=== PATIENT | female | born 1950 | race Caucasian/White ===

== ENCOUNTER → 2017-09-11 13:13 | Outpatient (POV) | payer MEDICARE, OTHER, SELFPAY ==
[2017-09-11 13:31] VITALS: BP 140/88; PULSE 90; RESP 18; TEMP 36.1; O2SAT 94; BMI 37.8
--- NOTE | 2017-09-11 13:40 | HMH.PAINSOAP ---
[facility] Pain Management SOAP Note Subjective:: Patient is a pleasant 67-year-old white female who presents today for follow-up after bilateral SI joint injections. Patient states she is having up to 80% relief still. Patient is currently marginal due to the injections. Patient rates her pain a 3 out of 10 today. Patient taking ibuprofen routinely. Patient states her pain is in her low back and her hips. She does have a right knee brace on and she has been receiving rooster comb injections in her right knee due to osteoarthritis. Patient states that this does help. Patient also on [place] 5 mg p.o. twice daily however she only takes this as needed she has not had a prescription since March of last year. The patient and I had a discussion about moving forward with more injective therapy. Patient is interested however she would like to wait until her pain begins to return. Patient states that her pain is dull and achy and intensifies with sitting for any length of time. Patient's LILLI #[id number] reviewed and appropriate. We will send this patient for drug screen today. ROS General: no recent weight change, no fever, difficulty sleeping Respiratory: cough, no shortness of air, no recurring pulmonary infections Cardiovascular/Peripheral Vascular: No chest pain, No palpitations, no edema, no shortness of breath. Gastrointestinal: no incontinence, constipation Genitourinary: no incontinence Musculoskeletal: Back pain, bilateral leg pain, bilateral SI pain, right knee pain Psychiatric: normal mood/ affect, Neurological: [denies weakness in extremities], [denies balance issues] Objective:: Physical Exam General: Alert and oriented x3, no acute distress, pleasant and cooperative, [on room air] Lungs: Resps E/U, Symmetrical chest expansion, Eyes: PERRL Musculoskeletal: Flexion and extension of lumbar spine somewhat guarded secondary to pain, deep tendon reflexes normal, strength in upper and lower extremities [5/5], [abnormal gait noted], positive Konrad's test bilaterally Neurological: speech clear, rehabilitation teacher equal, no gross sensory deficits Assessment:: Degenerative disc disease of the lumbar spine, lumbar postlaminectomy syndrome, bilateral sacroiliitis, right knee osteoarthritis Plan:: We will plan to repeat this injection when the pain begins to return. Patient is more functional at this time and doing well. 1 p.o. twice daily. We will send her for drug screen today. Her Lilli has been reviewed and appropriate. Dr. Mobley has reviewed her chart and agrees with this plan of care. We will follow-up with this patient on an as-needed basis. Patient has been prescribed a controlled substance after being counseled on the medication, medication safety, and possible side effects. LILLI report has been obtained and reviewed prior to prescription and found to be appropriate. Opioid contract was reviewed and signed by the patient, and that they have agreed to all of the terms set forth by our compliance program. This note was dictated using voice recognition software and may contain errors or omissions
--- NOTE | 2017-09-11 13:43 | P.CONS_ITS ---
[facility] Pain Management SOAP Note Subjective:: Patient is a pleasant 67-year-old white female who presents today for follow-up after bilateral SI joint injections. Patient states she is having up to 80% relief still. Patient is currently marginal due to the injections. Patient rates her pain a 3 out of 10 today. Patient taking ibuprofen routinely. Patient states her pain is in her low back and her hips. She does have a right knee brace on and she has been receiving rooster comb injections in her right knee due to osteoarthritis. Patient states that this does help. Patient also on [place] 5 mg p.o. twice daily however she only takes this as needed she has not had a prescription since March of last year. The patient and I had a discussion about moving forward with more injective therapy. Patient is interested however she would like to wait until her pain begins to return. Patient states that her pain is dull and achy and intensifies with sitting for any length of time. Patient's LILLI #[id number] reviewed and appropriate. We will send this patient for drug screen today. ROS General: no recent weight change, no fever, difficulty sleeping Respiratory: cough, no shortness of air, no recurring pulmonary infections Cardiovascular/Peripheral Vascular: No chest pain, No palpitations, no edema, no shortness of breath. Gastrointestinal: no incontinence, constipation Genitourinary: no incontinence Musculoskeletal: Back pain, bilateral leg pain, bilateral SI pain, right knee pain Psychiatric: normal mood/ affect, Neurological: [denies weakness in extremities], [denies balance issues] Objective:: Physical Exam General: Alert and oriented x3, no acute distress, pleasant and cooperative, [ on room air] Lungs: Resps E/U, Symmetrical chest expansion, Eyes: PERRL Musculoskeletal: Flexion and extension of lumbar spine somewhat guarded secondary to pain, deep tendon reflexes normal, strength in upper and lower extremities [5/5], [abnormal gait noted], positive Konrad's test bilaterally Neurological: speech clear, laundry presser equal, no gross sensory deficits Assessment:: Degenerative disc disease of the lumbar spine, lumbar postlaminectomy syndrome, bilateral sacroiliitis, right knee osteoarthritis Plan:: We will plan to repeat this injection when the pain begins to return. Patient is more functional at this time and doing well. 1 p.o. twice daily. We will send her for drug screen today. Her Lilli has been reviewed and appropriate. Dr. Mobley has reviewed her chart and agrees with this plan of care. We will follow-up with this patient on an as-needed basis. Patient has been prescribed a controlled substance after being counseled on the medication, medication safety, and possible side effects. LILLI report has been obtained and reviewed prior to prescription and found to be appropriate. Opioid contract was reviewed and signed by the patient, and that they have agreed to all of the terms set forth by our compliance program. This note was dictated using voice recognition software and may contain errors or omissions
[2017-09-11 16:12] LABS: Amphetamine/Metha Screen,Urine Negative ng/mL (<1000); Barbiturates Screen,Urine Negative ng/mL (<200); Benzodiazepines Screen,Urine Negative ng/mL (200); Cannabinoid Screen,Urine Negative ng/mL (<50); Cocaine Screen,Urine Negative ng/g (<300); Methadone Screen,Urine Negative ng/mL (<300); Opiate Screen,Urine Negative ng/mL (<300); Phencyclidine Screen,Urine Negative ng/mL (<25)
[2017-09-16 18:12] LABS: Opiates Negative (Cutoff=100)
== END ==
PROVIDERS: Family Provider Internal Medicine Adolescent Medicine; PCP Internal Medicine Adolescent Medicine; Visit Provider Clinical Nurse Specialist Family Health
DX: M46.1 Sacroiliitis, not elsewhere classified (principal); M17.11 Unilateral primary osteoarthritis, right knee; M51.36 Other intervertebral disc degeneration, lumbar region; Z79.891 Long term (current) use of opiate analgesic
CPT/HCPCS: 99212; 80305; 80361; 80365; G0480

== ENCOUNTER → 2017-11-26 09:32 | Outpatient (POV) | payer MEDICARE, OTHER, SELFPAY ==
[2017-11-26 09:41] VITALS: BP 122/78; PULSE 94; RESP 18; TEMP 36.6; O2SAT 99; BMI 39.4
--- NOTE | 2017-11-26 10:03 | HMH.PAINSOAP ---
[facility] Pain Management SOAP Note Subjective:: Patient is a pleasant 67-year-old white female who presents today for follow-up. Patient has had injections in the past with extremely good relief. Patient has had several falls recently starting in September. Patient has had increased pain in her back, SI joints, shoulders. Patient rates her pain a 6 out of 10 today. Patient is taking ibuprofen routinely. Patient does have a lot of right knee pain. Patient wears right knee brace and received rooster comb injections. Patient also on [place] 5 mg p.o. twice daily. She only takes this as needed. She has not had a prescription since August. The patient and I have discussed moving forward with more injective therapy. Patient is not opposed to this however she does not feel like her pain has returned to the same level as it was. Patient is interested in however having one refill of her medication in order to remain as functional as possible. Patient's LILLI #[id number] reviewed and appropriate. We will send her for drug screen today. Patient states that when she takes her medication it helps 70-80%. She has been cleared by neurology in regards to her fall. ROS General: no recent weight change, no fever, no sleep disturbances Respiratory: no cough, no shortness of air, no recurring pulmonary infections Cardiovascular/Peripheral Vascular: No chest pain, No palpitations, no edema, no shortness of breath. Gastrointestinal: no incontinence, normal bowel movements reported Genitourinary: no incontinence Musculoskeletal: Back pain, bilateral leg pain, bilateral SI pain, right knee pain Psychiatric: normal mood/ affect Neurological: [denies weakness in extremities], [denies balance issues] Objective:: Physical Exam General: Alert and oriented x3, no acute distress, pleasant and cooperative, [on room air] Lungs: Resps E/U, Symmetrical chest expansion, Eyes: PERRL Musculoskeletal: Flexion and extension of lumbar spine somewhat guarded secondary to pain, deep tendon reflexes normal, strength in upper and lower extremities [5/5], antalgic gait noted Neurological: speech clear, spice blender equal, no gross sensory deficits Assessment:: Degenerative disc disease of the lumbar spine, lumbar postlaminectomy syndrome, bilateral sacroiliitis, right knee osteoarthritis Plan:: We will refill her medication [place] 5 mg 1 p.o. twice daily. We will give her 1 month worth of medication. We will send her for drug screen today. Her LILLI has been reviewed. Dr. Mobley has reviewed her chart and agrees with this plan of care. We will follow-up with this patient in 2 months. Patient has been prescribed a controlled substance after being counseled on the medication, medication safety, and possible side effects. LILLI report has been obtained and reviewed prior to prescription and found to be appropriate. Opioid contract was reviewed and signed by the patient, and that they have agreed to all of the terms set forth by our compliance program. This note was dictated using voice recognition software and may contain errors or omissions
--- NOTE | 2017-11-26 10:07 | P.CONS_ITS ---
[facility] Pain Management SOAP Note Subjective:: Patient is a pleasant 67-year-old white female who presents today for follow- up. Patient has had injections in the past with extremely good relief. Patient has had several falls recently starting in September. Patient has had increased pain in her back, SI joints, shoulders. Patient rates her pain a 6 out of 10 today. Patient is taking ibuprofen routinely. Patient does have a lot of right knee pain. Patient wears right knee brace and received rooster comb injections. Patient also on [place] 5 mg p.o. twice daily. She only takes this as needed. She has not had a prescription since August. The patient and I have discussed moving forward with more injective therapy. Patient is not opposed to this however she does not feel like her pain has returned to the same level as it was. Patient is interested in however having one refill of her medication in order to remain as functional as possible. Patient's LILLI # [id number] reviewed and appropriate. We will send her for drug screen today. Patient states that when she takes her medication it helps 70-80%. She has been cleared by neurology in regards to her fall. ROS General: no recent weight change, no fever, no sleep disturbances Respiratory: no cough, no shortness of air, no recurring pulmonary infections Cardiovascular/Peripheral Vascular: No chest pain, No palpitations, no edema, no shortness of breath. Gastrointestinal: no incontinence, normal bowel movements reported Genitourinary: no incontinence Musculoskeletal: Back pain, bilateral leg pain, bilateral SI pain, right knee pain Psychiatric: normal mood/ affect Neurological: [denies weakness in extremities], [denies balance issues] Objective:: Physical Exam General: Alert and oriented x3, no acute distress, pleasant and cooperative, [ on room air] Lungs: Resps E/U, Symmetrical chest expansion, Eyes: PERRL Musculoskeletal: Flexion and extension of lumbar spine somewhat guarded secondary to pain, deep tendon reflexes normal, strength in upper and lower extremities [5/5], antalgic gait noted Neurological: speech clear, nursing information systems coordinator equal, no gross sensory deficits Assessment:: Degenerative disc disease of the lumbar spine, lumbar postlaminectomy syndrome, bilateral sacroiliitis, right knee osteoarthritis Plan:: We will refill her medication [place] 5 mg 1 p.o. twice daily. We will give her 1 month worth of medication. We will send her for drug screen today. Her LILLI has been reviewed. Dr. Mobley has reviewed her chart and agrees with this plan of care. We will follow-up with this patient in 2 months. Patient has been prescribed a controlled substance after being counseled on the medication, medication safety, and possible side effects. LILLI report has been obtained and reviewed prior to prescription and found to be appropriate. Opioid contract was reviewed and signed by the patient, and that they have agreed to all of the terms set forth by our compliance program. This note was dictated using voice recognition software and may contain errors or omissions
[2017-11-26 11:13] LABS: Amphetamine/Metha Screen,Urine Negative ng/mL (<1000); Barbiturates Screen,Urine Negative ng/mL (<200); Benzodiazepines Screen,Urine Negative ng/mL (200); Cannabinoid Screen,Urine Negative ng/mL (<50); Cocaine Screen,Urine Negative ng/g (<300); Methadone Screen,Urine Negative ng/mL (<300); Opiate Screen,Urine Negative ng/mL (<300); Phencyclidine Screen,Urine Negative ng/mL (<25)
[2017-12-04 14:29] LABS: Opiates Negative (Cutoff=100)
== END ==
PROVIDERS: Family Provider Internal Medicine Adolescent Medicine; PCP Internal Medicine Adolescent Medicine; Visit Provider Clinical Nurse Specialist Family Health
DX: M17.11 Unilateral primary osteoarthritis, right knee (principal); Z79.899 Other long term (current) drug therapy; M54.16 Radiculopathy, lumbar region
CPT/HCPCS: 80305; 80361; 80365; 99212; G0480

== ENCOUNTER → 2018-01-28 09:30 | Outpatient (POV) | payer MEDICARE, OTHER, SELFPAY ==
[2018-01-28 09:31] VITALS: BP 137/78; PULSE 95; RESP 18; O2SAT 98; BMI 35.2
--- NOTE | 2018-01-28 09:52 | HMH.PAINSOAP ---
[facility] Pain Management SOAP Note Subjective:: Patient is a pleasant 67-year-old white female who presents today for follow-up. Patient is doing quite well. Patient states that she had a recent long trip that had [address] of [address] and she has had some increased SI joint pain. Patient has had SI joint injections in the past with 80% relief up to 3 months. Patient would like a repeat in this. Patient also being medically managed with [place] 5 mg 1 p.o. twice daily as needed. Patient states the medication helps her up to 80% with her pain symptoms. Patient Kaspar #[id number] reviewed and appropriate. Patient's UDS has been appropriate in the past. ROS General: no recent weight change, no fever, no sleep disturbances Respiratory: no cough, no shortness of air, no recurring pulmonary infections Cardiovascular/Peripheral Vascular: No chest pain, No palpitations, no edema, no shortness of breath. Gastrointestinal: no incontinence, normal bowel movements reported Genitourinary: no incontinence Musculoskeletal: Right SI joint pain Psychiatric: normal mood/ affect Neurological: [denies weakness in extremities], [denies balance issues] Objective:: Physical Exam General: Alert and oriented x3, no acute distress, pleasant and cooperative, [on room air] Lungs: Resps E/U, Symmetrical chest expansion, Eyes: PERRL Musculoskeletal: Flexion and extension of lumbar spine somewhat guarded secondary to pain, deep tendon reflexes normal, strength in upper and lower extremities [5/5], [abnormal gait noted], positive Konrad's test on the right side, extreme point tenderness over right SI joint Neurological: speech clear, lunch truck operator equal, no gross sensory deficits Assessment:: Sacroiliitis, degenerative disc disease of the lumbar spine with lumbar postlaminectomy syndrome Plan:: We will refill the patient's medication [place] 5 mg 1 p.o. twice daily. We will give her 1 month worth of medication. Lilli has been reviewed and urine drug screen has been appropriate in the past. We will schedule the patient for right SI joint injection. I will follow-up with the patient after this. Dr. Mobley has reviewed this chart and agrees with this plan of care Patient has been prescribed a controlled substance after being counseled on the medication, medication safety, and possible side effects. LILLI report has been obtained and reviewed prior to prescription and found to be appropriate. Opioid contract was reviewed and signed by the patient, and that they have agreed to all of the terms set forth by our compliance program. This note was dictated using voice recognition software and may contain errors or omissions
--- NOTE | 2018-01-28 09:55 | P.CONS_ITS ---
[facility] Pain Management SOAP Note Subjective:: Patient is a pleasant 67-year-old white female who presents today for follow- up. Patient is doing quite well. Patient states that she had a recent long trip that had [address] of [address] and she has had some increased SI joint pain. Patient has had SI joint injections in the past with 80% relief up to 3 months. Patient would like a repeat in this. Patient also being medically managed with [place] 5 mg 1 p.o. twice daily as needed. Patient states the medication helps her up to 80% with her pain symptoms. Patient Kaspar #[id number] reviewed and appropriate. Patient's UDS has been appropriate in the past. ROS General: no recent weight change, no fever, no sleep disturbances Respiratory: no cough, no shortness of air, no recurring pulmonary infections Cardiovascular/Peripheral Vascular: No chest pain, No palpitations, no edema, no shortness of breath. Gastrointestinal: no incontinence, normal bowel movements reported Genitourinary: no incontinence Musculoskeletal: Right SI joint pain Psychiatric: normal mood/ affect Neurological: [denies weakness in extremities], [denies balance issues] Objective:: Physical Exam General: Alert and oriented x3, no acute distress, pleasant and cooperative, [ on room air] Lungs: Resps E/U, Symmetrical chest expansion, Eyes: PERRL Musculoskeletal: Flexion and extension of lumbar spine somewhat guarded secondary to pain, deep tendon reflexes normal, strength in upper and lower extremities [5/5], [abnormal gait noted], positive Konrad's test on the right side, extreme point tenderness over right SI joint Neurological: speech clear, technical training instructor equal, no gross sensory deficits Assessment:: Sacroiliitis, degenerative disc disease of the lumbar spine with lumbar postlaminectomy syndrome Plan:: We will refill the patient's medication [place] 5 mg 1 p.o. twice daily. We will give her 1 month worth of medication. Lilli has been reviewed and urine drug screen has been appropriate in the past. We will schedule the patient for right SI joint injection. I will follow-up with the patient after this. Dr. Mobley has reviewed this chart and agrees with this plan of care Patient has been prescribed a controlled substance after being counseled on the medication, medication safety, and possible side effects. LILLI report has been obtained and reviewed prior to prescription and found to be appropriate. Opioid contract was reviewed and signed by the patient, and that they have agreed to all of the terms set forth by our compliance program. This note was dictated using voice recognition software and may contain errors or omissions
== END ==
PROVIDERS: Family Provider Internal Medicine Adolescent Medicine; PCP Internal Medicine Adolescent Medicine; Visit Provider Clinical Nurse Specialist Family Health
DX: M96.1 Postlaminectomy syndrome, not elsewhere classified (principal); M46.1 Sacroiliitis, not elsewhere classified
CPT/HCPCS: 99212

== ENCOUNTER → 2018-02-26 08:49 | Outpatient (POV) | payer MEDICARE, OTHER, SELFPAY ==
[2018-02-26 09:32] VITALS: BP 132/92; PULSE 78; RESP 18; O2SAT 98; BMI 36.2
--- NOTE | 2018-02-26 09:52 | HMH.PAINSOAP ---
[facility] Pain Management SOAP Note Subjective:: Is a pleasant 67-year-old white female who presents today for follow-up after right SI joint injection. Patient states she is 80% better on the right side however she is having increased left-sided SI joint pain she states that last time she had bilateral SI joint she got much more relief she rates her pain a 5 out of 10 today. Patient is currently on [place] 5 mg 1 p.o. twice daily. She denies any side effects to this medication and states it does help her. Patient Kaspar #[id number] reviewed and appropriate. Patient is on hemp oil. Patient is going for UDS today. Patient is also utilizing career orientation teacher. ROS General: no recent weight change, no fever, no sleep disturbances Respiratory: no cough, no shortness of air, no recurring pulmonary infections Cardiovascular/Peripheral Vascular: No chest pain, No palpitations, no edema, no shortness of breath. Gastrointestinal: no incontinence, normal bowel movements reported Genitourinary: no incontinence Musculoskeletal: Bilateral SI joint pain Psychiatric: normal mood/ affect Neurological: [denies weakness in extremities], [denies balance issues] Objective:: Physical Exam General: Alert and oriented x3, no acute distress, pleasant and cooperative, [on room air] Lungs: Resps E/U, Symmetrical chest expansion Eyes: PERRL Musculoskeletal: Flexion and extension of lumbar spine somewhat guarded secondary to pain, deep tendon reflexes normal, strength in upper and lower extremities [5/5], antalgic gait noted, bilateral Konrad's test positive. Neurological: speech clear, solar power installer equal, no gross sensory deficits Assessment:: Sacroiliitis Plan:: We will refill the patient's [place] 5 mg 1 p.o. twice daily. Patient LILLI reviewed. We will give her 2 months worth of medication and send her for urine drug screen today. She can fern picker a month in the interim. We will also bilateral SI joint injections for the patient. Given the efficacy of this in the past I believe it would be beneficial. Dr. Mobley is reviewed this chart and agrees with this plan of care. Patient has been prescribed a controlled substance after being counseled on the medication, medication safety, and possible side effects. LILLI report has been obtained and reviewed prior to prescription and found to be appropriate. Opioid contract was reviewed and signed by the patient, and that they have agreed to all of the terms set forth by our compliance program. This note was dictated using voice recognition software and may contain errors or omissions
--- NOTE | 2018-02-26 09:56 | P.CONS_ITS ---
[facility] Pain Management SOAP Note Subjective:: Is a pleasant 67-year-old white female who presents today for follow-up after right SI joint injection. Patient states she is 80% better on the right side however she is having increased left-sided SI joint pain she states that last time she had bilateral SI joint she got much more relief she rates her pain a 5 out of 10 today. Patient is currently on [place] 5 mg 1 p.o. twice daily. She denies any side effects to this medication and states it does help her. Patient Kaspar #[id number] reviewed and appropriate. Patient is on hemp oil. Patient is going for UDS today. Patient is also utilizing day care supervisor. ROS General: no recent weight change, no fever, no sleep disturbances Respiratory: no cough, no shortness of air, no recurring pulmonary infections Cardiovascular/Peripheral Vascular: No chest pain, No palpitations, no edema, no shortness of breath. Gastrointestinal: no incontinence, normal bowel movements reported Genitourinary: no incontinence Musculoskeletal: Bilateral SI joint pain Psychiatric: normal mood/ affect Neurological: [denies weakness in extremities], [denies balance issues] Objective:: Physical Exam General: Alert and oriented x3, no acute distress, pleasant and cooperative, [ on room air] Lungs: Resps E/U, Symmetrical chest expansion Eyes: PERRL Musculoskeletal: Flexion and extension of lumbar spine somewhat guarded secondary to pain, deep tendon reflexes normal, strength in upper and lower extremities [5/5], antalgic gait noted, bilateral Konrad's test positive. Neurological: speech clear, wireless operator equal, no gross sensory deficits Assessment:: Sacroiliitis Plan:: We will refill the patient's [place] 5 mg 1 p.o. twice daily. Patient LILLI reviewed. We will give her 2 months worth of medication and send her for urine drug screen today. She can mushroom picker a month in the interim. We will also bilateral SI joint injections for the patient. Given the efficacy of this in the past I believe it would be beneficial. Dr. Mobley is reviewed this chart and agrees with this plan of care. Patient has been prescribed a controlled substance after being counseled on the medication, medication safety, and possible side effects. LILLI report has been obtained and reviewed prior to prescription and found to be appropriate. Opioid contract was reviewed and signed by the patient, and that they have agreed to all of the terms set forth by our compliance program. This note was dictated using voice recognition software and may contain errors or omissions
== END ==
PROVIDERS: Family Provider Internal Medicine Adolescent Medicine; PCP Internal Medicine Adolescent Medicine; Visit Provider Clinical Nurse Specialist Family Health
DX: M46.1 Sacroiliitis, not elsewhere classified (principal)
CPT/HCPCS: 99213

== ENCOUNTER → 2018-03-25 10:14 | Outpatient (POV) | payer MEDICARE, OTHER, SELFPAY ==
[2018-03-25 10:28] VITALS: BP 140/75; PULSE 82; RESP 18; O2SAT 98; BMI 36.2
--- NOTE | 2018-03-25 10:39 | HMH.PAINSOAP ---
[facility] Pain Management SOAP Note Subjective:: Patient is a pleasant 67-year-old white female who presents today after her SI joint injection. Patient is doing well and states that most of her pain is subsided in this area however her knee pain has become quite intense. Patient does get sick injections however she is not due for one at this time. She rates her pain a 5 out of 10 and is wearing her knee brace. Patient also on [place] 5 mg 1 p.o. twice daily. Patient states the medication helps up to 60%. Patient's LILLI #[id number] reviewed and appropriate. Patient will go for UDS today. Patient's UDS has been appropriate in the past. ROS General: no recent weight change, no fever, no sleep disturbances Respiratory: no cough, no shortness of air, no recurring pulmonary infections Cardiovascular/Peripheral Vascular: No chest pain, No palpitations, no edema, no shortness of breath. Gastrointestinal: no incontinence, normal bowel movements reported Genitourinary: no incontinence Musculoskeletal: Knee pain, SI joint pain Psychiatric: normal mood/ affect Neurological: [denies weakness in extremities], [denies balance issues] Objective:: Physical Exam General: Alert and oriented x3, no acute distress, pleasant and cooperative, [on room air] Lungs: Resps E/U, Symmetrical chest expansion, Eyes: PERRL Musculoskeletal: Flexion and extension of lumbar spine somewhat guarded secondary to pain, deep tendon reflexes normal, strength in upper and lower extremities [5/5], [abnormal gait noted] Neurological: speech clear, service sprinkler helper equal, no gross sensory deficits Assessment:: Degenerative disc disease lumbar spine, sacroiliitis, bilateral knee pain, osteoarthritis Plan:: She is not due prescriptions today. We will follow-up with her in May. We will call her in some Voltaren gel for her knee pain if she needs it. Patient's can call us and let us know. Patient may want injection prior to the end of the year. We will discuss that at her next visit. This note was dictated using voice recognition software and may contain errors or omissions
--- NOTE | 2018-03-25 10:42 | P.CONS_ITS ---
[facility] Pain Management SOAP Note Subjective:: Patient is a pleasant 67-year-old white female who presents today after her SI joint injection. Patient is doing well and states that most of her pain is subsided in this area however her knee pain has become quite intense. Patient does get sick injections however she is not due for one at this time. She rates her pain a 5 out of 10 and is wearing her knee brace. Patient also on [place] 5 mg 1 p.o. twice daily. Patient states the medication helps up to 60%. Patient's LILLI #[id number] reviewed and appropriate. Patient will go for UDS today. Patient's UDS has been appropriate in the past. ROS General: no recent weight change, no fever, no sleep disturbances Respiratory: no cough, no shortness of air, no recurring pulmonary infections Cardiovascular/Peripheral Vascular: No chest pain, No palpitations, no edema, no shortness of breath. Gastrointestinal: no incontinence, normal bowel movements reported Genitourinary: no incontinence Musculoskeletal: Knee pain, SI joint pain Psychiatric: normal mood/ affect Neurological: [denies weakness in extremities], [denies balance issues] Objective:: Physical Exam General: Alert and oriented x3, no acute distress, pleasant and cooperative, [on room air] Lungs: Resps E/U, Symmetrical chest expansion, Eyes: PERRL Musculoskeletal: Flexion and extension of lumbar spine somewhat guarded secondary to pain, deep tendon reflexes normal, strength in upper and lower extremities [5/5], [abnormal gait noted] Neurological: speech clear, diffusion furnace operator equal, no gross sensory deficits Assessment:: Degenerative disc disease lumbar spine, sacroiliitis, bilateral knee pain, osteoarthritis Plan:: She is not due prescriptions today. We will follow-up with her in May. We will call her in some Voltaren gel for her knee pain if she needs it. Patient's can call us and let us know. Patient may want injection prior to the end of the year. We will discuss that at her next visit. This note was dictated using voice recognition software and may contain errors or omissions
== END ==
PROVIDERS: Family Provider Internal Medicine Adolescent Medicine; PCP Internal Medicine Adolescent Medicine; Visit Provider Clinical Nurse Specialist Family Health
DX: M51.36 Other intervertebral disc degeneration, lumbar region (principal); M46.1 Sacroiliitis, not elsewhere classified; M25.561 Pain in right knee; M25.562 Pain in left knee; M19.90 Unspecified osteoarthritis, unspecified site
CPT/HCPCS: 99213

== ENCOUNTER → 2018-05-14 11:08 | Outpatient (CLI) | payer MEDICARE, OTHER, SELFPAY ==
[2018-05-14 13:03] LABS: Amphetamine/Metha Screen,Urine Negative ng/mL (<1000); Barbiturates Screen,Urine Negative ng/mL (<200); Benzodiazepines Screen,Urine Negative ng/mL (<200); Cannabinoid Screen,Urine Negative ng/mL (<50); Cocaine Screen,Urine Negative ng/mL (<300); Methadone Screen,Urine Negative ng/mL (<300); Opiate Screen,Urine Positive ng/mL (<300); Phencyclidine Screen,Urine Negative ng/mL (<25)
[2018-05-19 01:12] LABS: Codeine Negative (Cutoff=100); Hydrocodone Positive (.); Hydromorphone Positive (.); Morphine Negative (Cutoff=100)
[2018-05-20 04:55] LABS: Opiates Positive (.)
== END ==
PROVIDERS: Visit Provider Anesthesiology
DX: Z79.899 Other long term (current) drug therapy (principal)
CPT/HCPCS: 80305; 80361; 80365; G0480

== ENCOUNTER → 2018-06-10 09:46 | Outpatient (POV) | payer MEDICARE, OTHER, SELFPAY ==
[2018-06-10 09:56] VITALS: BP 136/76; PULSE 79; RESP 18; O2SAT 98; BMI 34.3
--- NOTE | 2018-06-10 10:10 | P.CONS_ITS ---
[facility] Pain Management SOAP Note Subjective:: Patient is a pleasant 67-year-old white female who presents today for medication refills. Patient currently rates her pain a 6 out of 10. Patient states she is doing well on her [place] 5 p.o. twice daily. Patient denies side effects. Patient's LILLI #[id number] reviewed and appropriate. Patient states the medication helps her up to 70%. UDS has been appropriate. ROS General: no recent weight change, no fever, no sleep disturbances Respiratory: no cough, no shortness of air, no recurring pulmonary infections Cardiovascular/Peripheral Vascular: No chest pain, No palpitations, no edema, no shortness of breath. Gastrointestinal: no incontinence, normal bowel movements reported Genitourinary: no incontinence Musculoskeletal: Knee pain, SI joint pain, back pain Psychiatric: normal mood/ affect, [denies depression], [denies anxiety] Neurological: [denies weakness in extremities], [denies balance issues] Objective:: Physical Exam General: Alert and oriented x3, no acute distress, pleasant and cooperative, [on room air] Lungs: Resps E/U, Symmetrical chest expansion, Eyes: PERRL Musculoskeletal: Flexion and extension of lumbar spine somewhat guarded secondary to pain, deep tendon reflexes normal, strength in upper and lower extremities [5/5], [abnormal gait noted] Neurological: speech clear, treer equal, no gross sensory deficits Assessment:: Degenerative disc disease lumbar spine, sacroiliitis, bilateral knee pain, osteoarthritis Plan:: We will refill her [place] 5 mg 1 p.o. twice daily and give her 2 months worth of prescriptions. We will follow-up with her in 3 months and she can continuous pickling line pickler helper her third month prescription in the interim. Dr. Mobley had this chart and agrees with this plan of care. Patient's been instructed to call the office if she has any issues prior to her next appointment. Patient has been prescribed a controlled substance after being counseled on the medication, medication safety, and possible side effects. LILLI report has been obtained and reviewed prior to prescription and found to be appropriate. Opioid contract was reviewed and signed by the patient, and that they have agreed to all of the terms set forth by our compliance program. This note was dictated using voice recognition software and may contain errors or omissions
== END ==
PROVIDERS: PCP Internal Medicine Adolescent Medicine; Visit Provider Clinical Nurse Specialist Family Health
DX: M51.36 Other intervertebral disc degeneration, lumbar region (principal); M46.1 Sacroiliitis, not elsewhere classified; M25.561 Pain in right knee; M25.562 Pain in left knee; M19.90 Unspecified osteoarthritis, unspecified site
CPT/HCPCS: 99213

== ENCOUNTER → 2018-08-27 09:10 | Outpatient (POV) | payer MEDICARE, OTHER, SELFPAY ==
[2018-08-27 09:16] VITALS: BP 133/64; PULSE 88; RESP 18; O2SAT 99; BMI 35.3
--- NOTE | 2018-08-27 09:30 | P.CONS_ITS ---
[facility] Pain Management SOAP Note Subjective:: Is a pleasant 67-year-old white female who presents today for medication refills. She rates her pain a 3 out of 10. Patient states that since her injections she has been doing well with no sharp pains. She is continuing her home stretching. Patient is also on anti-inflammatories she denies side effects from norco 5 mg 1 p.o. twice daily. Lilli reviewed and appropriate. ROS General: no recent weight change, no fever, no sleep disturbances Respiratory: no cough, no shortness of air, no recurring pulmonary infections Cardiovascular/Peripheral Vascular: No chest pain, No palpitations, no edema, no shortness of breath. Gastrointestinal: no incontinence, normal bowel movements reported Genitourinary: no incontinence Musculoskeletal: Back pain, knee pain Psychiatric: normal mood/ affect Neurological: [denies weakness in extremities], [denies balance issues] Objective:: Physical Exam General: Alert and oriented x3, no acute distress, pleasant and cooperative, [on room air] Lungs: Resps E/U, Symmetrical chest expansion, Eyes: PERRL Musculoskeletal: Flexion and extension of lumbar spine somewhat guarded secondary to pain, deep tendon reflexes normal, strength in upper and lower extremities [5/5], [abnormal gait noted] Neurological: speech clear, spring assembler supervisor equal, no gross sensory deficits Assessment:: Degenerative disc disease lumbar spine, bilateral knee pain, osteoarthritis Plan:: We will refill her [place] 5 mg 1 p.o. twice daily and give her 2 months worth of prescriptions. We will follow-up with her in 3 months and she can continuous pickling line pickler helper her third month in the interim. Patient has been prescribed a controlled substance after being counseled on the medication, medication safety, and possible side effects. LILLI report has been obtained and reviewed prior to prescription and found to be appropriate. Opioid contract was reviewed and signed by the patient, and that they have agreed to all of the terms set forth by our compliance program. Dr. Mobley has reviewed this note and agrees with this plan of care. This note was dictated using voice recognition software and may contain errors or omissions
--- NOTE | 2018-10-31 14:26 | PC.NURSE ---
Pt stopped by the office to grape picker interim prescription. Pt was informed that she was selected for a random UDS today. Pt stated she was unable to go to the lab at this time because she had to pick her granddaughter up from school. Explained drug screen policy to the patient, that if she did not go for a drug screen today, she would not be able to take her prescription and it is considered a failure/breech of contract. This would result in patient being released from the clinic. Patient then stated again that she had to go get her granddaughter from school. Offered to allow patient to grape picker her granddaughter and then return to the lab. Explained to the patient that it would still be at the provider's discretion as to whether prescriptions would be provided. Pt then stated so you want me to leave my granddaughter at the school alone? This publicity writer again reiterated that no one would expect her to do that and she would be permitted to return to lab for a drug screen. Pt stated that it wouldn't do any good to come back if I might not get my prescription. This publicity writer offered to contact lab to have them get patient right back so that she could go grape picker the child at 3 (it was 2:24 at the time of this conversation). Pt then stated no, she would see her on the 6th and talk about this. Options were once again explained to patient which she declined, stated to be honest, those pills are just a step above an aspirin. I could take extra of those and get the same effect. Pt left the office at this time.
== END ==
PROVIDERS: PCP Internal Medicine Adolescent Medicine; Visit Provider Clinical Nurse Specialist Family Health
DX: M51.36 Other intervertebral disc degeneration, lumbar region (principal); M25.562 Pain in left knee; M25.561 Pain in right knee; M19.90 Unspecified osteoarthritis, unspecified site
CPT/HCPCS: 99213

== ENCOUNTER → 2018-11-25 10:44 | Outpatient (POV) | payer MEDICARE, OTHER, SELFPAY ==
[2018-11-25 11:10] VITALS: BP 147/87; PULSE 83; RESP 18; O2SAT 98; BMI 35.1
--- NOTE | 2018-11-25 11:33 | XR_ITS ---
XR shoulder LT min 2V HISTORY: ITS.REASON: LT ANTERIOR SHOULDER PAIN ORDERING PHYSICIAN: Poonam Mijares APRN PATIENT AGE: 68 years Comparison: 12/14/2016 FINDINGS: Osteoarthritic changes involving the acromioclavicular joint and glenohumeral joint. There is spurring along the inferior surface of the AC joint with subacromial stenosis. This may result in rotator cuff disease which may be better byway with MRI clinically desired. There is some periarticular calcification along the inner aspect of the glenoid nonspecific. No acute fracture or dislocation. No lytic or blastic change. IMPRESSION: Osteoarthritis of the AC joint and glenohumeral joint with subacromial stenosis
--- NOTE | 2018-11-25 11:34 | HMH.PAINSOAP ---
[facility] Pain Management SOAP Note Subjective:: Patient is a pleasant 68-year-old white female who presents today for medication refills. Patient was picking up an interim prescription and was asked to do a urine drug screen. She did not complete this. Patient was given multiple options in regards to taking care of it one being quick access to the lab per pain management staff, to return and take the drug screen or to utilize a quick blood draw. Patient stated that she had 40 minutes to get her granddaughter from school and would not be able to complete this. Patient left without a prescription. She has not filled anything since September 26. Of note patient is discussing multiple falls that she has had I discussed with her potential neurology she states she is seen by neurology in the past and also been with her primary care physician. Patient rates her pain a 5 out of 10. ROS General: no recent weight change, no fever, no sleep disturbances Respiratory: no cough, no shortness of air, no recurring pulmonary infections Cardiovascular/Peripheral Vascular: No chest pain, No palpitations, no edema, no shortness of breath. Gastrointestinal: no incontinence, normal bowel movements reported Genitourinary: no incontinence Musculoskeletal: Back pain, shoulder pain Psychiatric: normal mood/ affect Neurological: [denies weakness in extremities], [denies balance issues] Objective:: Physical Exam General: Alert and oriented x3, no acute distress, pleasant and cooperative, [on room air] Lungs: Resps E/U, Symmetrical chest expansion, Eyes: PERRL Musculoskeletal: Flexion and extension of lumbar spine somewhat guarded secondary to pain, deep tendon reflexes normal, strength in upper and lower extremities [5/5], [abnormal gait noted] Neurological: speech clear, yarn washer equal, no gross sensory deficits Assessment:: Degenerative disc disease lumbar spine with lumbar radiculopathy, bilateral knee pain, osteoarthritis, shoulder pain Plan:: Patient and I discussed we would no longer be able to fill her prescriptions. Patient states that she does not take all of them and this is why the addicts are ruining everything . Patient states that it is making the problem worse because now she will have to go somewhere else for her pills. I discussed with her to talk about this with her primary care physician that she was welcome to come back for injection therapy. Patient was on an appropriate dose of [place] 5 mg 1 p.o. twice daily. I will follow-up with this patient if she wants to do any injections in the future. Dr. Mobley has reviewed this note and agrees with this plan of care. This note was dictated using voice recognition software and may contain errors or omissions
--- NOTE | 2018-11-25 11:37 | P.CONS_ITS ---
[facility] Pain Management SOAP Note Subjective:: Patient is a pleasant 68-year-old white female who presents today for medication refills. Patient was picking up an interim prescription and was asked to do a urine drug screen. She did not complete this. Patient was given multiple options in regards to taking care of it one being quick access to the lab per pain management staff, to return and take the drug screen or to utilize a quick blood draw. Patient stated that she had 40 minutes to get her granddaughter from school and would not be able to complete this. Patient left without a prescription. She has not filled anything since September 26. Of note patient is discussing multiple falls that she has had I discussed with her potential cheryl rology she states she is seen by neurology in the past and also been with her primary care physician. Patient rates her pain a 5 out of 10. ROS General: no recent weight change, no fever, no sleep disturbances Respiratory: no cough, no shortness of air, no recurring pulmonary infections Cardiovascular/Peripheral Vascular: No chest pain, No palpitations, no edema, no shortness of breath. Gastrointestinal: no incontinence, normal bowel movements reported Genitourinary: no incontinence Musculoskeletal: Back pain, shoulder pain Psychiatric: normal mood/ affect Neurological: [denies weakness in extremities], [denies balance issues] Objective:: Physical Exam General: Alert and oriented x3, no acute distress, pleasant and cooperative, [on room air] Lungs: Resps E/U, Symmetrical chest expansion, Eyes: PERRL Musculoskeletal: Flexion and extension of lumbar spine somewhat guarded secondary to pain, deep tendon reflexes normal, strength in upper and lower extremities [5/5], [abnormal gait noted] Neurological: speech clear, plastics production machine operator equal, no gross sensory deficits Assessment:: Degenerative disc disease lumbar spine with lumbar radiculopathy, bilateral knee pain, osteoarthritis, shoulder pain Plan:: Patient and I discussed we would no longer be able to fill her prescriptions. Patient states that she does not take all of them and this is why the addicts are ruining everything . Patient states that it is making the problem worse because now she will have to go somewhere else for her pills. I discussed with her to talk about this with her primary care physician that she was welcome to come back for injection therapy. Patient was on an appropriate dose of [place] 5 mg 1 p.o. twice daily. I will follow-up with this patient if she wants to do any injections in the future. Dr. Mobley has reviewed this note and agrees with this plan of care. This note was dictated using voice recognition software and may contain errors or omissions
== END ==
PROVIDERS: PCP Internal Medicine Adolescent Medicine; Visit Provider Clinical Nurse Specialist Family Health
DX: M51.16 Intervertebral disc disorders with radiculopathy, lumbar region (principal); M25.562 Pain in left knee; M25.561 Pain in right knee; M19.90 Unspecified osteoarthritis, unspecified site; M25.519 Pain in unspecified shoulder
CPT/HCPCS: 73030; 99213

== ENCOUNTER → 2018-12-04 09:20 | Outpatient (CLI) | payer MEDICARE, OTHER, SELFPAY ==
[2018-12-04 10:21] LABS: Amphetamine/Metha Screen,Urine Negative ng/mL (<1000); Barbiturates Screen,Urine Negative ng/mL (<200); Benzodiazepines Screen,Urine Negative ng/mL (<200); Cannabinoid Screen,Urine Positive ng/mL (<50); Cocaine Screen,Urine Negative ng/mL (<300); Methadone Screen,Urine Negative ng/mL (<300); Opiate Screen,Urine Positive ng/mL (<300); Phencyclidine Screen,Urine Negative ng/mL (<25)
[2018-12-09 12:08] LABS: Codeine Negative (Cutoff=100); Hydrocodone Positive (.); Hydromorphone Positive (.); Morphine Negative (Cutoff=100)
[2018-12-10 08:48] LABS: Opiates Positive (.)
[2018-12-20 18:38] LABS: Cannabinoid POSITIVE; Carboxy THC (GC/MS) 42
== END ==
PROVIDERS: Visit Provider Internal Medicine Adolescent Medicine
DX: F11.90 Opioid use, unspecified, uncomplicated (principal); Z79.899 Other long term (current) drug therapy
CPT/HCPCS: 80305; 80349; 80361; 80365; G0480

== ENCOUNTER → 2018-12-24 11:13 | Outpatient (POV) | payer MEDICARE, OTHER, SELFPAY ==
[2018-12-24 11:34] VITALS: BP 137/78; PULSE 88; RESP 18; O2SAT 98; BMI 36.2
--- NOTE | 2018-12-24 11:56 | P.CONS_ITS ---
[facility] Pain Management SOAP Note Subjective:: Patient is a pleasant 68-year-old white female who presents today to discuss injection therapy. At her last visit we discussed we could no longer write her narcotic medications. Patient was given the option to do a drug screen and stated that she did not have time to do so. She was given the option to use of blood draw and she was unable to do this. Patient had a urine drug screen by her primary care physician which did confirm positive for cannabinoids also for THC. Patient states that she is on CBD oil for the past 2 years however none of her previous tests have been positive. Patient can discontinue her CBD at this time. Her primary care then is going to retake her urine drug screen. Patient states that most of her pain is in her lower back. She is interested in injections. Patient states she has not tried anything other than narcotics for her pain at this time we discussed potentially utilizing on narcotic medications. She is having times where she states she is falling due to muscle spasms. Patient is going to be traveling for a family reunion and she would like to discuss injections prior to this.. ROS General: no recent weight change, no fever, no sleep disturbances Respiratory: no cough, no shortness of air, no recurring pulmonary infections Cardiovascular/Peripheral Vascular: No chest pain, No palpitations, no edema, no shortness of breath. Gastrointestinal: no incontinence, normal bowel movements reported Genitourinary: no incontinence Musculoskeletal: Back pain, leg pain, knee pain, shoulder pain Psychiatric: normal mood/ affect Neurological: [denies weakness in extremities], [denies balance issues] Objective:: Physical Exam General: Alert and oriented x3, no acute distress, pleasant and cooperative, [on room air] Lungs: Resps E/U, Symmetrical chest expansion, Eyes: PERRL Musculoskeletal: Flexion and extension of lumbar spine somewhat guarded secondary to pain, deep tendon reflexes normal, strength in upper and lower extremities [5/5], [abnormal gait noted] Neurological: speech clear, project internship equal, no gross sensory deficits Assessment:: Degenerative disc disease lumbar spine with lumbar radiculopathy, bilateral knee pain, osteoporosis, shoulder pain Plan:: We will start the patient on Cymbalta 30 mg 1 p.o. daily. We will also schedule a L4-L5 lumbar epidural steroid injection for the patient she is not on any blood thinners. She is continuing a home stretching program. I will follow-up with the patient after injection reassess her symptoms prior to the next appointment. Dr. Mobley has reviewed this note and agrees with this plan of care. This note was dictated using voice recognition software and may contain errors or omissions
== END ==
PROVIDERS: PCP Internal Medicine Adolescent Medicine; Visit Provider Clinical Nurse Specialist Family Health
DX: M51.16 Intervertebral disc disorders with radiculopathy, lumbar region (principal); M25.561 Pain in right knee; M25.562 Pain in left knee; M25.519 Pain in unspecified shoulder; M81.0 Age-related osteoporosis without current pathological fracture
CPT/HCPCS: 99212

== ENCOUNTER 2019-01-03 08:52 | Day surgery (SDC) | payer MEDICARE, OTHER, SELFPAY ==
--- NOTE | 2019-01-03 08:57 | XR_ITS ---
XR shoulder LT min 2V Ordering Physician: Bharat Mobley MD Patient Age: 68 years: Female HISTORY: ITS.REASON: left shoulder pain TECHNIQUE: 4 views left shoulder. Axillary, Grashey Supraspinatus COMPARISON :November 25, 2018 FINDINGS These additional views show Superior migration of the humeral head with narrowing of the subacromial space. This appearance suggestive on today's views of likely underlying rotator cuff demise and or/tear. With this are also some slight spurring at margins of the acromion likely present. AC joint with with arthritic changes in a mild/moderate spurring from the inferior margin of the distal clavicle. . Mild Degenerative changes at glenohumeral joint, otherwise noted Mild slight sharpening I believe at the margins of the glenoid. IMPRESSION. Today's additional images suggest narrowing at subacromial space; with superior migration of humeral head. Appearance suspect for underlying rotator cuff demise and or tear. Mild degenerative changes glenohumeral joint. & Moderate arthritic changes with spurring inferior AC joint IMPRESSION:
[2019-01-03 09:35] VITALS: BP 148/76; PULSE 91; RESP 18; O2SAT 91; BMI 36.0
[2019-01-03 13:50] VITALS: BP 138/82; PULSE 94; RESP 18; O2SAT 98
[2019-01-03 13:51] VITALS: BP 135/87; PULSE 92; RESP 18; O2SAT 99
--- NOTE | 2019-01-03 13:57 | HMH.PMPROC ---
- Procedure Date: 01/03/19 Time: 13:58 Anesthesiologist:: Bharat Mobley MD Complications:: None Pre-procedure Diagnosis:: Degenerative disc disease of lumbar spine with lumbar radiculopathy symptoms Post-procedure Diagnosis:: Same Indications for Procedure:: This patient is a pleasant 68-year-old white female who we are treating for low back pain with lumbar radicular apathy symptoms. She is not a candidate for any opioid therapy because of inappropriate urine drug screens. We will do a lumbar epidural steroid injection today to see if this will help with her pain symptoms. Procedure Details:: Lumbar epidural steroid injection under fluoroscopy Informed consent was obtained and the risk and benefits of the procedure was explained to the patient. The patient was taken to the procedure room. The patient was placed prone on the procedure table. The patient was prepped and draped in sterile fashion. C-arm fluoroscopy was used to view the lumbar spine. Skin and subcutaneous tissues were anesthetized using lidocaine. I placed an 18-gauge epidural needle and advanced into the L4-L5 interspace using fluoroscopic guidance and [id number] to air. After confirmation of needle placement in the epidural space with dye I injected 2 mL of lidocaine 1.5% with Depo-Medrol 80 mg. Patient tolerated the procedure well with no complications. Plan and Disposition:: We will follow-up with her in 2 weeks. Will reevaluate symptoms at that time.
[2019-01-03 14:07] VITALS: BP 122/67; PULSE 85; RESP 18; O2SAT 94
== END 2019-01-03 14:09 | disposition home health service (06) ==
LOC: SC.PAINP 08:54
PROVIDERS: PCP Internal Medicine Adolescent Medicine; Visit Provider Anesthesiology
DX: M25.512 Pain in left shoulder (principal); M51.16 Intervertebral disc disorders with radiculopathy, lumbar region
CPT/HCPCS: 62323; 73030; J1040; Q9966

== ENCOUNTER → 2019-01-21 10:08 | Outpatient (POV) | payer MEDICARE, OTHER, SELFPAY ==
[2019-01-21 10:31] VITALS: BP 133/73; PULSE 93; RESP 18; O2SAT 98; BMI 36.2
--- NOTE | 2019-01-21 10:48 | P.CONS_ITS ---
[facility] Pain Management SOAP Note Subjective:: Patient is a pleasant 68-year-old white female who presents today for follow-up after lumbar epidural steroid injection L4 and L5. Patient says that she had about 90% relief, but her pain returned in 2 weeks. She rates her pain a 6 out of 10 today. She is complaining of low back pain radiating to her bilateral knees. The patient previously took CBD oil and states that it helped with her pain a great deal, but had to stop taking it secondary to a positive urine drug screen for cannabinoids and THC. Patient started taking Cymbalta 30 mg p.o. daily and says that this is helped somewhat, but she feels she needs an increase in the dose. Review of Systems General: No recent weight changes, no fever, no sleep disturbances Respiratory: No cough, no shortness of air, no recurring pulmonary infections Cardiovascular/peripheral vascular: No chest pain, no palpitations, no edema, no shortness of breath Gastrointestinal: No new onset incontinence, normal bowel movements reported Genitourinary: No new onset incontinence Musculoskeletal: Back pain Psychiatric: Normal mood/affect Neurological: [Denies weakness in extremities], [denies balance issues] Objective:: Physical exam General: Alert and oriented x3, no acute distress, pleasant and cooperative, [on room air] Lungs: Respirations even and unlabored, symmetrical chest expansion Eyes: PERRL Musculoskeletal: Flexion and extension of lumbar spine somewhat guarded secondary to pain, deep tendon reflexes normal, strength in upper and lower extremities [5/5], [abnormal gait noted] Neurological: Speech clear, auxiliary operator equal, no gross sensory deficit Assessment:: Degenerative disc disease lumbar spine with lumbar radiculopathy, bilateral knee pain, osteoporosis, shoulder pain Plan:: We will increase her Cymbalta to 60 mg p.o. daily. Patient is currently taking [place] 5 mg p.o. 3 times daily as prescribed per Dr. Edwards. We will see the patient back in 1 month to reassess her symptoms at that time. Patient also says that she is scheduled to have a urine drug screen per Dr. Edwards in 30 days. She is been instructed to call the office if she has any concerns prior to her next appointment. She will also continue anti-inflammatories and home stretching program. Dr. Mobley has reviewed this note and agrees with this plan of care. This note was dictated using voice recognition software and make contain errors or omissions.
== END ==
PROVIDERS: PCP Internal Medicine Adolescent Medicine; Visit Provider Clinical Nurse Specialist Family Health
DX: M51.16 Intervertebral disc disorders with radiculopathy, lumbar region (principal); M25.561 Pain in right knee; M25.562 Pain in left knee; M25.519 Pain in unspecified shoulder; M81.0 Age-related osteoporosis without current pathological fracture
CPT/HCPCS: 99212

== ENCOUNTER → 2019-02-20 13:37 | Outpatient (CLI) | payer MEDICARE, OTHER, SELFPAY ==
[2019-02-20 16:22] LABS: Amphetamine/Metha Screen,Urine Negative ng/mL (<1000); Barbiturates Screen,Urine Negative ng/mL (<200); Benzodiazepines Screen,Urine Negative ng/mL (<200); Cannabinoid Screen,Urine Negative ng/mL (<50); Cocaine Screen,Urine Negative ng/mL (<300); Methadone Screen,Urine Negative ng/mL (<300); Opiate Screen,Urine Positive ng/mL (<300); Phencyclidine Screen,Urine Negative ng/mL (<25)
== END ==
PROVIDERS: Visit Provider Internal Medicine Adolescent Medicine
DX: Z79.899 Other long term (current) drug therapy (principal)
CPT/HCPCS: 80305

== ENCOUNTER → 2019-03-03 09:46 | Outpatient (POV) | payer MEDICARE, OTHER, SELFPAY ==
[2019-03-03 09:58] VITALS: BP 134/75; PULSE 90; RESP 18; O2SAT 98; BMI 35.5
--- NOTE | 2019-03-03 10:04 | HMH.PAINSOAP ---
[facility] Pain Management SOAP Note Subjective:: Patient is a pleasant 68-year-old white female who presents today for follow-up. Patient's Cymbalta was increased to 60 mg a day. She is doing well with this. She states is helping quite a bit. Patient had an epidural injection with not a whole lot of relief. She is had SI joint injections in the past with 80% relief for several weeks. She would like to repeat these. Her pain is a 6 out of 10 today. She does have a positive Mamadou Konrad's and SI joint compression test bilaterally. She recently fell. ROS General: no recent weight change, no fever, no sleep disturbances Respiratory: no cough, no shortness of air, no recurring pulmonary infections Cardiovascular/Peripheral Vascular: No chest pain, No palpitations, no edema, no shortness of breath. Gastrointestinal: no incontinence, normal bowel movements reported Genitourinary: no incontinence Musculoskeletal: Back pain, leg pain, SI joint pain, knee pain Psychiatric: normal mood/ affect Neurological: [denies weakness in extremities], [denies balance issues] Objective:: Physical Exam General: Alert and oriented x3, no acute distress, pleasant and cooperative, [on room air] Lungs: Resps E/U, Symmetrical chest expansion, Eyes: PERRL Musculoskeletal: Flexion and extension of lumbar spine somewhat guarded secondary to pain, deep tendon reflexes normal, strength in upper and lower extremities [5/5], [abnormal gait noted] Neurological: speech clear, outsole skiver equal, no gross sensory deficits Assessment:: Degenerative disc disease lumbar spine with lumbar radiculopathy, bilateral knee pain, sacroiliitis bilaterally Plan:: We will schedule a bilateral SI joint injection for the patient given the efficacy of this in the past I believe it would be beneficial for her. Patient will continue with her Cymbalta 60 mg daily. She is been instructed to call the office if she has any issues prior to her next appointment. She is continuing a home stretching program. Dr. Mobley has reviewed this note and agrees with this plan of care. This note was dictated using voice recognition software and may contain errors or omissions Pain Management Hx Components *Have you ever received a pneumonia vaccine?: No *Have you received a flu vaccine this season?: No - *Social History *Occupational Status:: other *Travel in the last 8 weeks: None
== END ==
PROVIDERS: PCP Internal Medicine Adolescent Medicine; Visit Provider Clinical Nurse Specialist Family Health
DX: M51.16 Intervertebral disc disorders with radiculopathy, lumbar region (principal); M25.561 Pain in right knee; M25.562 Pain in left knee; M46.1 Sacroiliitis, not elsewhere classified
CPT/HCPCS: 99212

== ENCOUNTER → 2019-04-07 10:51 | Outpatient (POV) | payer MEDICARE, OTHER, SELFPAY ==
[2019-04-07 12:00] VITALS: BP 117/80; PULSE 92; RESP 18; O2SAT 98; BMI 35.3
--- NOTE | 2019-04-07 12:12 | HMH.PAINSOAP ---
[facility] Pain Management SOAP Note Subjective:: Patient is a pleasant 68-year-old white female who presents today for follow-up after bilateral SI joint injections. She is doing extremely well rating her pain a 2 out of 10 today. She states she is much more functional and she is had 80% relief of her pain symptoms. Overall patient doing well ROS General: no recent weight change, no fever, no sleep disturbances Respiratory: no cough, no shortness of air, no recurring pulmonary infections Cardiovascular/Peripheral Vascular: No chest pain, No palpitations, no edema, no shortness of breath. Gastrointestinal: no incontinence, normal bowel movements reported Genitourinary: no incontinence Musculoskeletal: Bilateral SI joint pain Psychiatric: normal mood/ affect, [denies depression], [denies anxiety] Neurological: [denies weakness in extremities], [denies balance issues] Objective:: Physical Exam General: Alert and oriented x3, no acute distress, pleasant and cooperative, [on room air] Lungs: Resps E/U, Symmetrical chest expansion, [CTA bilateral] Eyes: PERRL Musculoskeletal: Flexion and extension of lumbar spine somewhat guarded secondary to pain, deep tendon reflexes normal, strength in upper and lower extremities [5/5], [abnormal gait noted] Neurological: speech clear, lumber inspector equal, no gross sensory deficits Assessment:: Sacroiliitis Plan:: We will follow-up with the patient 2 months reassess her symptoms at that time she is been instructed to call the office if she has any issues prior to her next appointment. Dr. Mobley has reviewed this note and agrees with this plan of care. This note was dictated using voice recognition software and may contain errors or omissions [facility] History I have reviewed the patient's past medical history: Yes Medical History: Reports:: Diabetes Mellitus Type 2, Hyperlipidemia, Hypertension Denies:: Cancer, Diabetes Mellitus Type 1, Internal Pacemaker, MRSA, Seizures *Have you ever received a pneumonia vaccine?: Yes *Have you received a flu vaccine this season?: Yes Other Medical History: Reports: Arthritis Laterality Cases: Bilateral: Other Other Surgeries: Yes: Cholecystectomy, Colonoscopy, Dilation and Curettage, Hysterectomy-Total. No: Pacemaker Amputation: No Fractures: No - *Social History Smoking Status: Former smoker Alcohol Intake: never Alcohol Intake Frequency:: holidays/special occasions only *Occupational Status:: other Household Members: spouse *Travel in the last 8 weeks: None Family Hx:: Cancer, Coronary Artery Disease, Diabetes, Hyperlipidemia, Hypertension
== END ==
PROVIDERS: PCP Internal Medicine Adolescent Medicine; Visit Provider Clinical Nurse Specialist Family Health
DX: M46.1 Sacroiliitis, not elsewhere classified (principal)
CPT/HCPCS: 99212

== ENCOUNTER → 2019-05-06 13:16 | Outpatient (CLI) | payer MEDICARE, OTHER, SELFPAY ==
--- NOTE | 2019-05-06 13:20 | XR_ITS ---
PROCEDURE: XR FOOT LT MIN 3V CLINICAL INDICATION: LT FOOT/ANKLE PAIN Posttraumatic pain COMPARISON: XR ANKLE LT MIN 3V from 05/06/2019 FINDINGS: There is a mildly displaced transverse fracture involving the base of the 5th metatarsal. The proximal fracture fragment is distracted proximally by 4 mm. The fracture line does extend into the articular surface of the base of the 5th metatarsal. There are mild osteoarthritic changes of the talonavicular joint and 1st MTP joint. There is a small calcaneal spur. Hypertrophic changes are present at the medial and lateral malleolar region with a lucency through the distal fibula which may be due to prior surgery defect. The ankle has an otherwise unremarkable appearance with no acute fracture of the ankle. IMPRESSION: 1. Minimally displaced fracture base of 5th metatarsal 2. 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
== END ==
PROVIDERS: PCP Internal Medicine Adolescent Medicine; Visit Provider Internal Medicine Adolescent Medicine
DX: M79.672 Pain in left foot (principal); M25.572 Pain in left ankle and joints of left foot
CPT/HCPCS: 73610; 73630

== ENCOUNTER → 2019-05-20 15:41 | Outpatient (CLI) | payer MEDICARE, OTHER, SELFPAY ==
--- NOTE | 2019-05-20 15:52 | ECG_ITS ---
APPROVED REPORT Exam: Resting ECG HR:81 bpm ECG Measurements Heart Rate 81 AXES SC 156 P 79 QRSd 90 QRS -56 QT 358 T 56 QTc 415 <Conclusion> Normal sinus rhythm Left axis deviation,LAHB Abnormal ECG Electronically signed by : Sammy De Luna, 05/20/2019 16:38:31
== END ==
PROVIDERS: PCP Internal Medicine Adolescent Medicine; Visit Provider Podiatrist Foot & Ankle Surgery
DX: Z01.818 Encounter for other preprocedural examination (principal)
CPT/HCPCS: 93005

== ENCOUNTER → 2019-11-26 09:08 | Outpatient (CLI) | payer MEDICARE, OTHER, SELFPAY ==
--- NOTE | 2019-11-26 09:15 | XR_ITS ---
PROCEDURE: XR SHOULDER RT MIN 2V CLINICAL INDICATION: rt shoulder pain COMPARISON: No exams were available for comparison FINDINGS: There are osteoarthritic changes of the AC joint and glenohumeral joint. There is severe subacromial stenosis with loss of the subacromial space consistent with right-sided rotator cuff tear with high-riding humeral head. There are some hypertrophic changes of the humeral head and neck. No acute fracture or dislocation. IMPRESSION: Severe subacromial stenosis with high-riding humeral head consistent rotator cuff tear with underlying osteoarthritis. The subacromial stenosis is worse when compared to the previous exam Dictated by: Derek Patel MD 11/26/2019 10:35 Electronically signed by Derek Patel MD in [place] 11/26/2019 10:35
--- NOTE | 2019-11-26 09:15 | XR_ITS ---
PROCEDURE: XR SHOULDER LT MIN 2V CLINICAL INDICATION: LEFT SHOULDER PAIN COMPARISON: [id number] VIEWS from 12/14/2016 SHOU3L [id number] VIEWS from 12/14/2016 FINDINGS: There are osteoarthritic changes of the acromioclavicular joint and glenohumeral joint. There is high-riding humeral head with subacromial stenosis consistent with rotator cuff tear which may be confirmed with MRI. These findings have progressed since the previous radiograph of 12/14/2016. No acute fracture or dislocation is evident. There is some osteosclerosis of the humeral head. A small periarticular calcification is present along the inferior aspect of the glenoid. IMPRESSION: Osteoarthritis of the AC joint and glenohumeral joint with severe subacromial stenosis and high-riding humeral head consistent with rotator cuff tear Dictated by: Derek Patel MD 11/26/2019 10:29 Electronically signed by Derek Patel MD in [place] 11/26/2019 10:29
== END ==
PROVIDERS: PCP Internal Medicine Adolescent Medicine; Visit Provider Orthopaedic Surgery
DX: M25.511 Pain in right shoulder (principal); M25.512 Pain in left shoulder
CPT/HCPCS: 73030

== ENCOUNTER 2019-11-26 11:08 | Outpatient (RCR) | payer MEDICARE, OTHER, SELFPAY | END 2019-11-26 11:45 | disposition home or self-care (01) | LOC: OT 11:08 | PROVIDERS: Visit Provider Orthopaedic Surgery | DX: G56.03 Carpal tunnel syndrome, bilateral upper limbs (principal) | CPT/HCPCS: 97763 ==

== ENCOUNTER → 2019-12-15 09:01 | Outpatient (POV) | payer MEDICARE, OTHER, SELFPAY | PROVIDERS: PCP Internal Medicine Adolescent Medicine; Visit Provider Specialist | DX: M79.602 Pain in left arm (principal); M79.601 Pain in right arm; R20.2 Paresthesia of skin | CPT/HCPCS: 95886; 95909 ==

== ENCOUNTER → 2019-12-29 09:13 | Outpatient (POV) | payer MEDICARE, OTHER, SELFPAY ==
--- NOTE | 2019-12-29 09:38 | HMH.PAINSOAP ---
[facility] Pain Management SOAP Note Subjective:: Patient is a pleasant 69-year-old white female who presents today for follow-up. She has been dealing with a broken foot and her being diagnosed with kidney cancer since her last visit. She states she is in need of bilateral SI joint injections. She gets 80% relief for 3 to 4 months with these injections. She rates her pain a 10 out of 10 today. She has a positive Mamadou test Konrad's test and SI joint compression test bilaterally. Patient's trying to stay as active as possible. Patient also has chronic right knee pain. We discussed a sprint stimulator. ROS General: no recent weight change, no fever, no sleep disturbances Respiratory: no cough, no shortness of air, no recurring pulmonary infections Cardiovascular/Peripheral Vascular: No chest pain, No palpitations, no edema, no shortness of breath. Gastrointestinal: no new onset incontinence, normal bowel movements reported Genitourinary: no new onset incontinence Musculoskeletal: SI joint pain Psychiatric: normal mood/ affect, Neurological: [denies new onset weakness in extremities], [denies new onset balance issues] Objective:: Physical Exam General: Alert and oriented x3, no acute distress, pleasant and cooperative, [on room air] Lungs: Resps E/U, Symmetrical chest expansion, Eyes: PERRL Musculoskeletal: Flexion and extension of lumbar spine somewhat guarded secondary to pain, deep tendon reflexes normal, strength in upper and lower extremities [5/5], [abnormal gait noted] Neurological: speech clear, floor cleaner equal, no gross sensory deficits Assessment:: Bilateral sacroiliitis Plan:: We will set her up for bilateral SI joint injections. We will give her information in regards to sprint stimulator. I will follow-up with her after this reassess her symptoms at that time she has been instructed to call the office if she has any issues prior to her next appointment. Dr. Mobley has reviewed this note and agrees with this plan of care. This note was dictated using voice recognition software and may contain errors or omissions [facility] History I have reviewed the patient's past medical history: Yes Medical History: Reports:: Diabetes Mellitus Type 2, Gastroesophageal Reflux Disease(GERD), Hyperlipidemia, Hypertension Denies:: Cancer, Diabetes Mellitus Type 1, Internal Pacemaker, MRSA, Seizures *Have you ever received a pneumonia vaccine?: No *Have you received a flu vaccine this season?: Yes Other Medical History: Reports: Arthritis Laterality Cases: Bilateral: Other Other Surgeries: Yes: Cholecystectomy, Colonoscopy, Dilation and Curettage, Hysterectomy-Total. No: Pacemaker Amputation: No Fractures: No - *Social History Smoking Status: Former smoker Alcohol Intake: never Alcohol Intake Frequency:: holidays/special occasions only *Occupational Status:: other Household Members: spouse *Travel in the last 8 weeks: None Family Hx:: Cancer, Coronary Artery Disease, Diabetes, Hyperlipidemia, Hypertension
[2019-12-29 09:43] VITALS: BP 143/79; PULSE 84; RESP 18; TEMP 36.8; O2SAT 99; BMI 36.0
== END ==
PROVIDERS: PCP Internal Medicine Adolescent Medicine; Visit Provider Clinical Nurse Specialist Family Health
DX: M46.1 Sacroiliitis, not elsewhere classified (principal)
CPT/HCPCS: 99212

== ENCOUNTER 2020-01-09 10:25 | Day surgery (SDC) | payer MEDICARE, OTHER, SELFPAY ==
[2020-01-09 11:08] VITALS: BP 132/69; PULSE 86; RESP 18; TEMP 36.7; O2SAT 94; BMI 35.5
--- NOTE | 2020-01-09 11:39 | HMH.PMPROC ---
- Procedure Date: 01/09/20 Time: 11:39 Anesthesiologist:: Bharat Mobley MD Complications:: None Pre-procedure Diagnosis:: Sacroiliitis Post-procedure Diagnosis:: Same Indications for Procedure:: Patient is a pleasant 69-year-old white female who we are treating for bilateral hip pain. She is previously had bilateral SI joint injections with 3 to 4 months relief in her pain symptoms. She has a positive Mamadou test. She is positive Konrad's test and positive SI joint compression test bilaterally. We will do bilateral SI joint injections under fluoroscopy today. Procedure Details:: B/L SI joint injection under fluoroscopy Informed consent was obtained and the risks and benefits of the procedure was explained to the patient. The patient was taken to the procedure room and placed prone on the procedure table. The patient was prepped using ChloraPrep. The skin and subcutaneous tissues overlying the SI joints were anesthetized using lidocaine. I placed a 22-gauge needle first in the left SI joint and second in the right SI joint. Needle placement was confirmed with dye. After this we injected 5 mL bupivacaine 0.25% and Depo-Medrol 40 mg into each SI joint. Patient tolerated the procedure well with no complication. Plan and Disposition:: We will follow-up with her in 2 weeks. Will reevaluate her symptoms at that time.
[2020-01-09 11:43] VITALS: BP 140/88; BP 150/87; PULSE 79; PULSE 88; RESP 18; O2SAT 98; O2SAT 99
[2020-01-09 11:57] VITALS: BP 129/74; PULSE 78; RESP 20; O2SAT 94
== END 2020-01-09 11:58 | disposition home or self-care (01) ==
LOC: SC.PAINP 10:27
PROVIDERS: PCP Internal Medicine Adolescent Medicine; Visit Provider Anesthesiology
DX: M46.1 Sacroiliitis, not elsewhere classified (principal); I10 Essential (primary) hypertension; F41.9 Anxiety disorder, unspecified; F32.9 Major depressive disorder, single episode, unspecified; M19.90 Unspecified osteoarthritis, unspecified site; Z90.710 Acquired absence of both cervix and uterus; Z90.49 Acquired absence of other specified parts of digestive tract; Z80.9 Family history of malignant neoplasm, unspecified; Z83.3 Family history of diabetes mellitus; Z88.5 Allergy status to narcotic agent; Z88.8 Allergy status to other drugs, medicaments and biological substances; Z79.899 Other long term (current) drug therapy
CPT/HCPCS: 27096; G0260; J1030; Q9966

== ENCOUNTER 2020-01-23 12:53 | Day surgery (SDC) | payer MEDICARE, OTHER, SELFPAY ==
[2020-01-23 13:18] VITALS: BP 133/76; PULSE 78; RESP 18; TEMP 36.6; O2SAT 95; BMI 35.2
[2020-01-23 13:47] VITALS: BP 140/85; PULSE 85; RESP 18
--- NOTE | 2020-01-23 14:33 | HMH.PMPROC ---
- Procedure Date: 01/23/20 Time: 14:33 Anesthesiologist:: Bharat Mobley MD Complications:: None Pre-procedure Diagnosis:: Chronic right knee pain Post-procedure Diagnosis:: Same Indications for Procedure:: The patient is a pleasant 69-year-old white female who we have been treating for bilateral hip pain. She is done well with previous SI joint injections. She does have chronic right knee pain. We will do peripheral nerve stimulation to the femoral nerve today with the Sprint PCS peripheral nerve stimulation system. Procedure Details:: Peripheral nerve stimulation with the Sprint PCS system Informed consent was obtained and the risk and benefits of the procedure were explained to the patient. Patient was taken to the procedure room. The right groin was prepped using ChloraPrep. Under ultrasound guidance we located the femoral nerve and femoral artery. Needle was placed into the area of the femoral nerve. We did stimulate the nerve and the patient did get stimulation into the thigh almost down to the knee. We did manipulate the needle to get stimulation just above the right knee. Lead was placed. We check stimulation once again. We still got stimulation of the same areas just above the right knee. Stimulation was in the distribution of his femoral nerve. There is only sensory stimulation no motor stimulation. The lead was secured in place. Programming was done by the [employer] reps. The patient did get stimulation all the way to the top part of her knee. Patient was discharged home neurologically to have good relief of pain symptoms. She tolerated the procedure well with no complications. Disposition: We will follow-up with this patient next week. We will reevaluate her symptoms at that time. She was taught dressing changes by the [employer] reps. Plan and Disposition:: We will follow-up with her in 1 week. We will reevaluate her symptoms at that time.
[2020-01-23 14:41] VITALS: BP 132/88; PULSE 85; RESP 18; O2SAT 98
[2020-01-23 15:00] VITALS: BP 122/64; PULSE 69; RESP 20; O2SAT 98
== END 2020-01-23 15:02 | disposition home or self-care (01) ==
PROVIDERS: PCP Internal Medicine Adolescent Medicine; Visit Provider Anesthesiology
DX: M17.11 Unilateral primary osteoarthritis, right knee (principal); G89.29 Other chronic pain; I10 Essential (primary) hypertension; E78.5 Hyperlipidemia, unspecified; G43.909 Migraine, unspecified, not intractable, without status migrainosus; D64.9 Anemia, unspecified; Z90.49 Acquired absence of other specified parts of digestive tract; Z90.710 Acquired absence of both cervix and uterus; Z88.5 Allergy status to narcotic agent; Z88.8 Allergy status to other drugs, medicaments and biological substances; Z79.84 Long term (current) use of oral hypoglycemic drugs; Z79.899 Other long term (current) drug therapy
CPT/HCPCS: 64555; C1778

== ENCOUNTER → 2020-01-29 08:55 | Outpatient (POV) | payer MEDICARE, OTHER, SELFPAY ==
[2020-01-29 09:12] VITALS: BP 126/71; PULSE 83; RESP 18; TEMP 36.8; O2SAT 98; BMI 35.2
--- NOTE | 2020-01-29 09:22 | P.CONS_ITS ---
[facility] Pain Management SOAP Note Subjective:: Patient is a pleasant 69-year-old white female who presents today for follow-up after Sprint PCS peripheral nerve later. Patient says she is not having any pain to her right knee. She does say that she is experiencing undulation sensation to her right lateral thigh area. She does say, however, her pain is relieved at this time to her right knee. He is complaining of some difficulty keeping the device attached. She says that the tape is not working well and she is having to replace them often. She rates her pain a 0 out of 10. Review of Systems General: No recent weight changes, no fever, no sleep disturbances Respiratory: No cough, no shortness of air, no recurring pulmonary infections Cardiovascular/peripheral vascular: No chest pain, no palpitations, no edema, no shortness of breath Gastrointestinal: No new onset incontinence, normal bowel movements reported Genitourinary: No new onset incontinence Musculoskeletal: Intermittent right knee pain Psychiatric: Normal mood/affect Neurological: [Denies weakness in extremities], [denies balance issues] Objective:: Physical exam General: Alert and oriented x3, no acute distress, pleasant and cooperative, [on room air] Lungs: Respirations even and unlabored, symmetrical chest expansion Eyes: PERRL Musculoskeletal: Flexion and extension of lumbar spine somewhat guarded secondary to pain, deep tendon reflexes normal, strength in upper and lower extremities [5/5], [abnormal gait noted] Neurological: Speech clear, rehabilitator equal, no gross sensory deficit Assessment:: Right knee pain Plan:: Overall, the patient is doing well with her Sprint PCS system. We will follow- up with her in 2 weeks. She has been instructed to contact the clinic if she has any concerns before next appointment. The patient and I specifically discussed risk factors for COVID19. These risks include, but are not limited to age greater than 60, heart or lung disease, diabetes, immunosuppression, and travel. We also discussed NSAIDs may worsen COVID19 infection or symptoms. Patient should not use NSAIDs to treat COVID19 signs or symptoms. Patient was also informed that any type of corticosteroid of any form (oral or injection) will decrease the patient's immune system response and may increase the likelihood of COVID19 infection and symptoms[address] Mobley has reviewed this note and agrees with this plan of care. This note was dictated using voice [facility] software and make contain errors or omissions. [facility] History I have reviewed the patient's past medical history: Yes Medical History: Reports:: Diabetes Mellitus Type 2, Gastroesophageal Reflux Disease(GERD), Hyperlipidemia, Hypertension Denies:: Cancer, Diabetes Mellitus Type 1, Internal Pacemaker, MRSA, Seizures *Have you ever received a pneumonia vaccine?: Yes *Have you received a flu vaccine this season?: Yes Other Medical History: Reports: Anemia, Arthritis Laterality Cases: Bilateral: Other Other Surgeries: Yes: Cholecystectomy, Colonoscopy, Dilation and Curettage, EGD, Hysterectomy-Total. No: Pacemaker Amputation: No Fractures: Yes (left foot) - *Social History Smoking Status: Former smoker Alcohol Intake: never Alcohol Intake Frequency:: holidays/special occasions only *Occupational Status:: other Housing: house Household Members: spouse *Travel in the last 8 weeks: None Family Hx:: Cancer, Diabetes
== END ==
PROVIDERS: PCP Internal Medicine Adolescent Medicine; Visit Provider Clinical Nurse Specialist Family Health
DX: M25.561 Pain in right knee (principal)
CPT/HCPCS: 99212

== ENCOUNTER → 2020-02-09 08:47 | Outpatient (POV) | payer MEDICARE, OTHER, SELFPAY ==
[2020-02-09 09:03] VITALS: BP 131/87; PULSE 86; RESP 18; TEMP 37; O2SAT 98; BMI 35.2
--- NOTE | 2020-02-09 09:26 | HMH.PAINSOAP ---
[facility] Pain Management SOAP Note Subjective:: Patient is a pleasant 69-year-old white female who presents today for follow-up. She is being treated for pain in her right knee. Patient is currently with a Sprint PCS peripheral nerve stimulator. She says that she started to experience severe pain in her right knee yesterday. Patient feels that she has possibly pulled the lead loose when changing out the dressing. Patient says it is in a spot that she is unable to see very well and is unable to get much help with her who is very ill. She says that she did not do much yesterday and had pain and it is worse today. She rates her pain a 5 out of 10 today. Patient also has significant irritation noted around her lead site. She says it is due to the adhesive. She does says she is feeling stimulation into her right lateral thigh area, however, she is not getting any stimulation to her right knee. It does say that the stimulation into her right lateral thigh has been there since the stimulator was placed, however, she says that her pain to her knee was much better previous days. Review of Systems General: No recent weight changes, no fever, no sleep disturbances Respiratory: No cough, no shortness of air, no recurring pulmonary infections Cardiovascular/peripheral vascular: No chest pain, no palpitations, no edema, no shortness of breath Gastrointestinal: No new onset incontinence, normal bowel movements reported Genitourinary: No new onset incontinence Musculoskeletal: Knee pain Psychiatric: Normal mood/affect Neurological: [Denies weakness in extremities], [denies balance issues] Objective:: Physical exam General: Alert and oriented x3, no acute distress, pleasant and cooperative, [on room air] Lungs: Respirations even and unlabored, symmetrical chest expansion Eyes: PERRL Musculoskeletal: Flexion and extension of lumbar spine somewhat guarded secondary to pain, deep tendon reflexes normal, strength in upper and lower extremities [5/5], [abnormal gait noted] Neurological: Speech clear, 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 Mobley, we will proceed with turning the stimulator off at this time and she will follow-up with Dr. Mobley on Sunday of this week to discuss a further plan of care. Patient says that she will remove her adhesive today to see if this helps with the irritation. She has been instructed to contact the clinic if she has any concerns before her next appointment. The patient and I specifically discussed risk factors for COVID19. These risks include, but are not limited to age greater than 60, heart or lung disease, diabetes, immunosuppression, and travel. We also discussed NSAIDs may worsen COVID19 infection or symptoms. Patient should not use NSAIDs to treat COVID19 signs or symptoms. Patient was also informed that any type of corticosteroid of any form (oral or injection) will decrease the patient's immune system response and may increase the likelihood of COVID19 infection [address] symptoms[address]. Mobley has reviewed this note and agrees with this plan of care. This note was dictated using voice recognition software and make contain errors or omissions. [facility] History I have reviewed the patient's past medical history: Yes Medical History: Reports:: Diabetes Mellitus Type 2, Gastroesophageal Reflux Disease(GERD), Hyperlipidemia, Hypertension Denies:: Cancer, Diabetes Mellitus Type 1, Internal Pacemaker, MRSA, Seizures *Have you ever received a pneumonia vaccine?: Yes *Have you received a flu vaccine this season?: Yes Other Medical History: Reports: Anemia, Arthritis Laterality Cases: Bilateral: Other Other Surgeries: Yes: Cholecystectomy, Colonoscopy, Dilation and Curettage, EGD, Hysterectomy-Total. No: Pacemaker Amputation: No Fractures: Yes (left foot) - *Social History Smoking Status: Former smoker Alcohol Intake: never Alcohol Intake Frequ
== END ==
PROVIDERS: PCP Internal Medicine Adolescent Medicine; Visit Provider Clinical Nurse Specialist Family Health
DX: M25.561 Pain in right knee (principal)
CPT/HCPCS: 99212

== ENCOUNTER → 2020-02-13 09:42 | Outpatient (POV) | payer MEDICARE, OTHER, SELFPAY ==
[2020-02-13 10:03] VITALS: BP 161/87; PULSE 95; RESP 20; TEMP 37; O2SAT 96; BMI 35.2
--- NOTE | 2020-02-13 10:51 | P.CONS_ITS ---
[facility] Pain Management SOAP Note Subjective:: Patient is a pleasant 69-year-old white female who we have been treating for right knee pain with a Sprint PCS peripheral nerve stimulator. She was doing well up until a week ago when her leads migrated and she lost stimulation in her knee. Her stimulator now has been off. We are unable to accurately capture stimulation into her knee. Her pain is started to come back. We will remove her leads today and plan on replacement of new leads 2 weeks. Objective:: Alert and oriented x3 no acute distress. Patient does have an antalgic gait. Motor strength of lower extremities is 5/5. Leads were removed intact with no complication. There is no redness or swelling around the area of insertion. Assessment:: Right knee pain chronic with migrated peripheral nerve stimulator lead Plan:: Lead was removed intact with no complication. We will plan on following up with this patient in 2 weeks. We will replace her Sprint PCS peripheral nerve stimulator lead at that time. This will be peripheral nerve stimulation of the right saphenous nerve to help with right knee pain. [facility] History Medical History: Reports:: Diabetes Mellitus Type 2, Gastroesophageal Reflux Disease(GERD), Hyperlipidemia, Hypertension Denies:: Cancer, Diabetes Mellitus Type 1, Internal Pacemaker, MRSA, Seizures *Have you ever received a pneumonia vaccine?: No *Have you received a flu vaccine this season?: No Other Medical History: Reports: Anemia, Arthritis Laterality Cases: Bilateral: Other Other Surgeries: Yes: Cholecystectomy, Colonoscopy, Dilation and Curettage, EGD, Hysterectomy-Total. No: Pacemaker Amputation: No Fractures: Yes (left foot) - *Social History Smoking Status: Former smoker Alcohol Intake: never Alcohol Intake Frequency:: holidays/special occasions only *Occupational Status:: retired Housing: house Household Members: spouse *Travel in the last 8 weeks: None Family Hx:: Cancer, Diabetes
== END ==
PROVIDERS: PCP Internal Medicine Adolescent Medicine; Visit Provider Anesthesiology
DX: M25.561 Pain in right knee (principal); G89.29 Other chronic pain; T85.615A Breakdown (mechanical) of other nervous system device, implant or graft, initial encounter
CPT/HCPCS: 99212

== ENCOUNTER 2020-03-12 09:13 | Day surgery (SDC) | payer MEDICARE, OTHER, SELFPAY ==
[2020-03-12 09:39] VITALS: BP 125/73; PULSE 77; RESP 18; TEMP 36.2; O2SAT 96; BMI 35.9
[2020-03-12 10:16] VITALS: BP 131/62; PULSE 77; RESP 18
[2020-03-12 10:43] VITALS: BP 135/88; PULSE 77; RESP 18; O2SAT 96
--- NOTE | 2020-03-12 10:58 | P.PCN_ITS ---
- Procedure Date: 03/12/20 Time: 10:59 Anesthesiologist:: Bharat Mobley MD Complications:: None Pre-procedure Diagnosis:: Chronic right knee pain Post-procedure Diagnosis:: Same Indications for Procedure:: Patient is a pleasant 69-year-old white female who we have been treating for chronic right knee pain. She previously had a Sprint PCS peripheral nerve stimulator. She had great relief of her pain symptoms while her stimulator was in place. Her stimulator was inadvertently pulled out while changing dressings. She presents today for replacement of her spinal cord stimulator lead for peripheral nerve stimulation of the right saphenous nerve to help with right knee pain. Procedure Details:: Peripheral nerve stimulation with the Sprint PCS system Informed consent was obtained and the risk and benefits of the procedure were explained to the patient. Patient was taken to the procedure room. The right groin was prepped using ChloraPrep. Under ultrasound guidance we located the femoral nerve and femoral artery. Needle was placed into the area of the femoral nerve. We did stimulate the nerve and the patient did get stimulation into the thigh almost down to the knee. We did manipulate the needle to get stimulation just above the right knee. Lead was placed. We check stimulation once again. We still got stimulation of the same areas just above the right knee. Stimulation was in the distribution of his femoral nerve. There is only sensory stimulation no motor stimulation. The lead was secured in place. Programming was done by the Sprint PCS reps. The patient did get stimulation all the way to the top part of her knee. Patient was discharged home neurologically to have good relief of pain symptoms. She tolerated the procedur e well with no complications. Plan and Disposition:: We will follow-up with her and 2 weeks. Will reevaluate her symptoms. Again this will be a 60-day. That she wears a stimulator.
[2020-03-12 11:05] VITALS: BP 118/68; PULSE 71; RESP 18; O2SAT 96
== END 2020-03-12 11:06 | disposition home or self-care (01) ==
PROVIDERS: PCP Internal Medicine Adolescent Medicine; Visit Provider Anesthesiology
DX: M25.561 Pain in right knee (principal); T85.890A Other specified complication of nervous system prosthetic devices, implants and grafts, initial encounter; G89.29 Other chronic pain; I10 Essential (primary) hypertension; Z79.890 Hormone replacement therapy; Z90.49 Acquired absence of other specified parts of digestive tract; Z90.710 Acquired absence of both cervix and uterus; Z88.5 Allergy status to narcotic agent; Z88.8 Allergy status to other drugs, medicaments and biological substances; Z79.899 Other long term (current) drug therapy
CPT/HCPCS: 64555; 64999

== ENCOUNTER → 2020-04-01 10:49 | Outpatient (POV) | payer MEDICARE, OTHER, SELFPAY ==
[2020-04-01 11:09] VITALS: BP 128/74; PULSE 74; RESP 18; O2SAT 98; BMI 35.3
--- NOTE | 2020-04-01 11:32 | HMH.PAINSOAP ---
[facility] Pain Management SOAP Note Subjective:: Patient is a 69-year-old white female who presents today for follow-up. She currently has a Sprint PCS from nerve stimulator in place. Patient says that she is not getting as much relief with her second peripheral stimulator as she did with the initial stimulator. Patient had a previous Sprint PCS system in place, and reports to have gotten 100% relief at that time. Patient says when she got off the table from the procedure she did not have any knee pain until she accidentally pulled the lead loose. She underwent a repositioning of the lead and says that her pain has been different since having the new lead placed. She says that she initially had some tingling sensation with the first device in the lateral thigh area, however, all of her stimulation is into her medial thigh area and to the knee. Patient rates her pain intermittently as an 8 out of 10. She says that the pain will come and go. Over the last couple of days she has had to ice her knee due to the pain. Patient says she is scheduled to go on vacation this upcoming week and will be gone for 10 days. She does not want to do anything differently with the device until she returns from vacation to see if her pain improves. He is being treated with the PCS device for right knee pain. Review of Systems General: No recent weight changes, no fever, no sleep disturbances Respiratory: No cough, no shortness of air, no recurring pulmonary infections Cardiovascular/peripheral vascular: No chest pain, no palpitations, no edema, no shortness of breath Gastrointestinal: No new onset incontinence, normal bowel movements reported Genitourinary: No new onset incontinence Musculoskeletal: Right knee pain Psychiatric: Normal mood/affect Neurological: [Denies weakness in extremities], [denies balance issues] Objective:: Physical exam General: Alert and oriented x3, no acute distress, pleasant and cooperative, [on room air] Lungs: Respirations even and unlabored, symmetrical chest expansion Eyes: PERRL Musculoskeletal: Flexion and extension of lumbar spine somewhat guarded secondary to pain, deep tendon reflexes normal, strength in upper and lower extremities [5/5], [abnormal gait noted] Neurological: Speech clear, patternmaker plaster equal, no gross sensory deficit Assessment:: Chronic right knee pain Plan:: The patient does not feel that the system is working well for her at this time, however, she does not want any changes until she comes back from vacation. She wants to see if the device does improve over the next 10 days. We will see her back in the clinic at that time to reassess her symptoms. Patient has been instructed to contact clinic if she has any concerns before next appointment. The patient and I specifically discussed risk factors for COVID19. These risks include, but are not limited to age greater than 60, heart or lung disease, diabetes, immunosuppression, and travel. We also discussed NSAIDs may worsen COVID19 infection or symptoms. Patient should not use NSAIDs to treat COVID19 signs or symptoms. Patient was also informed that any type of corticosteroid of any form (oral or injection) will decrease the patient's immune system response and may increase the likelihood of COVID19 infection and symptoms. And [facility] History I have reviewed the patient's past medical history: Yes Medical History: Reports:: Diabetes Mellitus Type 2, Gastroesophageal Reflux Disease(GERD), Hyperlipidemia, Hypertension Denies:: Cancer, Diabetes Mellitus Type 1, Internal Pacemaker, MRSA, Seizures *Have you ever received a pneumonia vaccine?: Yes *Have you received a flu vaccine this season?: Yes Other Medical History: Reports: Anemia, Arthritis, Hormone Therapy Laterality Cases: Bilateral: Other Other Surgeries: Yes: Cholecystectomy, Colonoscopy, Dilation and Curettage, EGD, Hysterectomy-Total. No: Pacemaker Amputation: No Fractures: Yes (left foot) - *S
== END ==
PROVIDERS: PCP Internal Medicine Adolescent Medicine; Visit Provider Clinical Nurse Specialist Family Health
DX: M25.561 Pain in right knee (principal); G89.29 Other chronic pain
CPT/HCPCS: 99212

== ENCOUNTER → 2020-04-19 10:31 | Outpatient (POV) | payer MEDICARE, OTHER, SELFPAY ==
[2020-04-19 10:53] VITALS: BP 140/74; PULSE 75; RESP 18; O2SAT 98; BMI 35.3
--- NOTE | 2020-04-19 11:15 | HMH.PAINSOAP ---
[facility] Pain Management SOAP Note Subjective:: Patient is a 69-year-old white female who presents today for follow-up. She is currently with a Sprint PCS system for her right knee pain. Patient did have a previous SCS system in place with Sprint that became dislodged when she was removing the bandage. Patient did have the system replaced. Patient does report when she initially had that splint system in with the first trial, she got 90% relief. Since having the system replaced, patient says she did not get any relief. Patient says she continued to feel stimulation in her right lateral thigh area rather than her knee. She did go on vacation to see if it would get any better, however, she continued to have significant pain. Patient would like for the device to be removed. Patient says she is having low back pain. She would like to undergo a lumbar epidural steroid injection. She rates her pain a 6 out of 10 today. She does say that she is not interested in an implanted device at this time. She is not on any anticoagulation therapy. Review of Systems General: No recent weight changes, no fever, no sleep disturbances Respiratory: No cough, no shortness of air, no recurring pulmonary infections Cardiovascular/peripheral vascular: No chest pain, no palpitations, no edema, no shortness of breath Gastrointestinal: No new onset incontinence, normal bowel movements reported Genitourinary: No new onset incontinence Musculoskeletal: Right low back pain, right knee pain Psychiatric: Normal mood/affect Neurological: [Denies weakness in extremities], [denies balance issues] Objective:: Physical exam General: Alert and oriented x3, no acute distress, pleasant and cooperative, [on room air] Lungs: Respirations even and unlabored, symmetrical chest expansion Eyes: PERRL Musculoskeletal: Flexion and extension of lumbar spine somewhat guarded secondary to pain, deep tendon reflexes normal, strength in upper and lower extremities [5/5], [abnormal gait noted] Neurological: Speech clear, impregnator electrolytic capacitors equal, no gross sensory deficit Assessment:: Chronic right knee pain, low back pain with lumbar radiculopathy symptoms Plan:: Unfortunately, the patient did not get any relief from the sprint SCS system. I did remove the Sprint peripheral lead from her right groin today. She did not have any redness, drainage, or edema noted to the site. I did apply a sterile bandage to the site. She and I did discuss possible [employer] stimulator since she does have low back pain as well. Unfortunately, the patient's not interested in any implanted devices at this time. She would like to undergo a lumbar epidural steroid injection at L4-L5.. We will schedule her for a lumbar epidural steroid injection and see her back in the clinic after the injection to reassess her symptoms. She is not on any anticoagulation therapy. The patient and I specifically discussed risk factors for COVID19. These risks include, but are not limited to age greater than 60, heart or lung disease, diabetes, immunosuppression, and travel. We also discussed NSAIDs may worsen COVID19 infection or symptoms. Patient should not use NSAIDs to treat COVID19 signs or symptoms. Patient was also informed that any type of corticosteroid of any form (oral or injection) will decrease the patient's immune system response and may increase the likelihood of COVID19 [address] Mobley has reviewed this note and agrees with this plan of care. This note was dictated using voice recognition software and make contain errors or omissions. [facility] History I have reviewed the patient's past medical history: Yes Medical History: Reports:: Diabetes Mellitus Type 2, Gastroesophageal Reflux Disease(GERD), Hyperlipidemia, Hypertension Denies:: Cancer, Diabetes Mellitus Type 1, Internal Pacemaker, MRSA, Seizures *Have you ever received a pneumonia vaccine?: Yes *Have you received a flu vaccine this se
== END ==
PROVIDERS: PCP Internal Medicine Adolescent Medicine; Visit Provider Clinical Nurse Specialist Family Health
DX: M25.561 Pain in right knee (principal); M54.5 Low back pain; M54.16 Radiculopathy, lumbar region
CPT/HCPCS: 99212

== ENCOUNTER → 2020-04-22 14:52 | Outpatient (POV) | payer MEDICARE, OTHER, SELFPAY ==
[2020-04-22 15:23] VITALS: BP 142/74; PULSE 84; RESP 18; O2SAT 99; BMI 35.3
--- NOTE | 2020-04-22 15:29 | HMH.PAINSOAP ---
[facility] Pain Management SOAP Note Subjective:: Patient is a 69-year-old white female who presents today for follow-up. Patient, at last visit, had her Sprint system removed for her right knee. She did not get any relief during the sprint trial. At that visit, the patient said that she would like to proceed with a lumbar epidural steroid injection. She has had chronic low back pain for some time. She has had epidural steroid injections in the past and is gotten up to 80% relief for greater than 3 weeks with the injections. We also discussed a permanent spinal cord stimulator, however, she was not interested. Patient presented to the clinic today and says after reviewing her information that was given to her, she would like to discuss a spinal cord stimulator. Patient did not have an appointment today, however, she would like to be seen. She does rate her pain a 7 out of 10. Patient's pain is primarily in her right low back area with radiation into her right leg and right knee. She is tried physical therapy along with injections home stretching and anti-inflammatories. Patient does take pain medication as prescribed by her primary care provider. She also uses ice and heat therapies and a brace for her right knee. Review of Systems General: No recent weight changes, no fever, no sleep disturbances Respiratory: No cough, no shortness of air, no recurring pulmonary infections Cardiovascular/peripheral vascular: No chest pain, no palpitations, no edema, no shortness of breath Gastrointestinal: No new onset incontinence, normal bowel movements reported Genitourinary: No new onset incontinence Musculoskeletal: Low back pain, right knee pain Psychiatric: Normal mood/affect Neurological: [Denies weakness in extremities], [denies balance issues] Objective:: Physical exam General: Alert and oriented x3, no acute distress, pleasant and cooperative, [on room air] Lungs: Respirations even and unlabored, symmetrical chest expansion Eyes: PERRL Musculoskeletal: Flexion and extension of lumbar spine somewhat guarded secondary to pain, deep tendon reflexes normal, strength in upper and lower extremities [5/5], [abnormal gait noted] Neurological: Speech clear, 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 She says she will just stay with the lumbar epidural steroid injection. The patient is not on any anticoagulation therapy. We will see her back in the clinic after her injection to reassess her symptoms. The patient and I specifically discussed risk factors for COVID19. These risks include, but are not limited to age greater than 60, heart or lung disease, diabetes, immunosuppression, and travel. We also discussed NSAIDs may worsen COVID19 infection or symptoms. Patient should not use NSAIDs to treat COVID19 signs or symptoms. Patient was also informed that any type of corticosteroid of any form (oral or injection) will decrease the patient's immune system response and may increase the likelihood of COVID[address] Mobley has reviewed this note and agrees with this plan of care. This note was dictated using voice recognition software and make contain errors or omissions. [facility] History I have reviewed the patient's past medical history: Yes Medical History: Reports:: Diabetes Mellitus Type 2, Gastroesophageal Reflux Disease(GERD), Hyperlipidemia, Hypertension Denies:: Cancer, Diabetes Mellitus Type 1, Internal Pacemaker, MRSA, Seizures *Have you ever received a pneumonia vaccine?: Yes *Have you received a flu vaccine this season?: Yes Other Medical History: Reports: Anemia, Arthritis, Hormone Therapy Laterality Cases: Bilateral: Other Other Surg
== END ==
PROVIDERS: PCP Internal Medicine Adolescent Medicine; Visit Provider Clinical Nurse Specialist Family Health
DX: M51.16 Intervertebral disc disorders with radiculopathy, lumbar region (principal); M25.561 Pain in right knee; G89.29 Other chronic pain
CPT/HCPCS: 99212

== ENCOUNTER 2020-05-05 13:47 | Day surgery (SDC) | payer MEDICARE, OTHER, SELFPAY ==
[2020-05-05 13:56] VITALS: BP 142/74; PULSE 94; RESP 20; TEMP 36.4; O2SAT 97; BMI 34.3
[2020-05-05 14:41] VITALS: BP 132/78; PULSE 98; RESP 18; O2SAT 98
[2020-05-05 14:42] VITALS: BP 138/89; PULSE 85; RESP 18; O2SAT 98
[2020-05-05 15:13] VITALS: BP 143/71; PULSE 89; RESP 20; O2SAT 97
--- NOTE | 2020-05-05 16:13 | HMH.PMPROC ---
- Procedure Date: 05/05/20 Time: 16:13 Anesthesiologist:: Bharat Mobley MD Complications:: None Pre-procedure Diagnosis:: Degenerative disease of lumbar spine with lumbar radiculopathy symptoms Post-procedure Diagnosis:: Same Indications for Procedure:: Patient is a pleasant 69-year-old white female who we are treating for low back pain with lumbar radiculopathy symptoms. She does well with epidural steroid injections. We have talked to her about spinal cord stimulation to help her with her back pain and leg pain. She is not interested in pursuing spinal cord stimulation at this time. She would like to continue with lumbar pleural steroid injections that does help tremendously. Will plan on repeat lumbar epidural steroid injection today to help her with her pain symptoms. Procedure Details:: Lumbar epidural steroid injection under fluoroscopy Informed consent was obtained and the risk and benefits of the procedure was explained to the patient. The patient was taken to the procedure room. The patient was placed prone on the procedure table. The patient was prepped and draped in sterile fashion. C-arm fluoroscopy was used to view the lumbar spine. Skin and subcutaneous tissues were anesthetized using lidocaine. I placed an 18-gauge epidural needle and advanced into the L4-L5 interspace using fluoroscopic guidance and [id number] to air. After confirmation of needle placement in the epidural space with dye I injected 2 mL of lidocaine 1.5% with Depo-Medrol 80 mg. Patient tolerated the procedure well with no complications. Plan and Disposition:: We will follow-up with her in 2 weeks. Will reevaluate her symptoms at that time. Again if epidurals are not long-lasting then she may be a candidate for spinal cord stimulation.
== END 2020-05-05 15:14 | disposition home or self-care (01) ==
LOC: SC.PAINP 13:48
PROVIDERS: PCP Internal Medicine Adolescent Medicine; Visit Provider Anesthesiology
DX: M51.16 Intervertebral disc disorders with radiculopathy, lumbar region (principal); I10 Essential (primary) hypertension; K21.9 Gastro-esophageal reflux disease without esophagitis; M19.90 Unspecified osteoarthritis, unspecified site; Z88.6 Allergy status to analgesic agent; Z88.8 Allergy status to other drugs, medicaments and biological substances; Z79.890 Hormone replacement therapy; Z79.84 Long term (current) use of oral hypoglycemic drugs; Z79.899 Other long term (current) drug therapy
CPT/HCPCS: 62323; J1040; Q9966

== ENCOUNTER → 2020-05-27 10:27 | Outpatient (POV) | payer MEDICARE, OTHER, SELFPAY ==
[2020-05-27 11:29] VITALS: BP 124/82; PULSE 78; RESP 18; TEMP 36.6; O2SAT 99; BMI 35.2
--- NOTE | 2020-05-27 11:30 | HMH.PAINSOAP ---
[facility] Pain Management SOAP Note Subjective:: Patient pleasant 69-year-old white female who presents today for follow-up after lumbar epidural steroid injection. She gets good relief up to 80% with her injections for up to 4 months. Patient rates her pain a 3 out of 10 today. Overall doing well would like to follow-up on an as-needed basis. ROS General: no recent weight change, no fever, no sleep disturbances Respiratory: no cough, no shortness of air, no recurring pulmonary infections Cardiovascular/Peripheral Vascular: No chest pain, No palpitations, no edema, no shortness of breath. Gastrointestinal: no new onset incontinence, normal bowel movements reported Genitourinary: no new onset incontinence Musculoskeletal: Back pain, leg pain at times Psychiatric: normal mood/ affect Neurological: [denies new onset weakness in extremities], [denies new onset balance issues] Objective:: Physical Exam General: Alert and oriented x3, no acute distress, pleasant and cooperative, [on room air] Lungs: Resps E/U, Symmetrical chest expansion, Eyes: PERRL Musculoskeletal: Flexion and extension of lumbar spine somewhat guarded secondary to pain, deep tendon reflexes normal, strength in upper and lower extremities [5/5], [abnormal gait noted] Neurological: speech clear, container finisher equal, no gross sensory deficits Assessment:: Degenerative disc disease lumbar spine lumbar radiculopathy symptoms Plan:: We will see the patient back on an as-needed basis. She is been instructed to call the office if she has any issues. Dr. Mobley has reviewed this note and agrees with this plan of care. This note was dictated using voice recognition software and may contain errors or omissions [facility] History I have reviewed the patient's past medical history: Yes Medical History: Reports:: Diabetes Mellitus Type 2, Gastroesophageal Reflux Disease(GERD), Hyperlipidemia, Hypertension Denies:: Cancer, Diabetes Mellitus Type 1, Internal Pacemaker, MRSA, Seizures *Have you ever received a pneumonia vaccine?: Yes *Have you received a flu vaccine this season?: Yes Other Medical History: Reports: Anemia, Arthritis, Hormone Therapy Laterality Cases: Bilateral: Other Other Surgeries: Yes: Cholecystectomy, Colonoscopy, Dilation and Curettage, EGD, Hysterectomy-Total. No: Pacemaker Amputation: No Fractures: Yes (left foot) - *Social History Smoking Status: Former smoker Alcohol Intake: never Alcohol Intake Frequency:: holidays/special occasions only *Occupational Status:: retired Housing: house Household Members: spouse *Travel in the last 8 weeks: None Family Hx:: Cancer, Diabetes
== END ==
PROVIDERS: PCP Internal Medicine Adolescent Medicine; Visit Provider Clinical Nurse Specialist Family Health
DX: M51.16 Intervertebral disc disorders with radiculopathy, lumbar region (principal)
CPT/HCPCS: 99212

== ENCOUNTER → 2020-09-20 09:03 | Outpatient (POV) | payer MEDICARE, OTHER, SELFPAY ==
[2020-09-20 09:07] VITALS: BP 123/78; PULSE 80; RESP 18; O2SAT 98; BMI 35.2
--- NOTE | 2020-09-20 09:29 | HMH.PAINSOAP ---
[facility] Pain Management SOAP Note Subjective:: Patient is a pleasant 70-year-old white female presents today for follow-up. Patient has not been seen since May. Patient had a round of epidural injections with extremely good relief. She had over 80% up until recently. Her pain has begun to return. She would like to repeat a L4-L5 lumbar epidural given the efficacy of this in the past. She rates her pain an 8 out of 10. She is not on any anticoagulation therapy. ROS General: no recent weight change, no fever, no sleep disturbances Respiratory: no cough, no shortness of air, no recurring pulmonary infections Cardiovascular/Peripheral Vascular: No chest pain, No palpitations, no edema, no shortness of breath. Gastrointestinal: no new onset incontinence, normal bowel movements reported Genitourinary: no new onset incontinence Musculoskeletal: Back pain, leg pain Psychiatric: normal mood/ affect Neurological: [denies new onset weakness in extremities], [denies new onset balance issues] Objective:: Physical Exam General: Alert and oriented x3, no acute distress, pleasant and cooperative, [on room air] Lungs: Resps E/U, Symmetrical chest expansion, Eyes: PERRL Musculoskeletal: Flexion and extension of lumbar spine somewhat guarded secondary to pain, deep tendon reflexes normal, strength in upper and lower extremities [5/5], [abnormal gait noted] Neurological: speech clear, 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 She has been instructed to call the office if she has any issues prior to her next appointment she is not on any anticoagulation therapy. She has failed medication management including anti-inflammatories. Patient also has not had her Covid vaccine at this time. I encouraged her to inform the office if she has this prior to any injective therapy. Dr. Mobley has reviewed this note and agrees with this plan of care. This note was dictated using voice recognition software and may contain errors or omissions [facility] History I have reviewed the patient's past medical history: Yes Medical History: Reports:: Diabetes Mellitus Type 2, Gastroesophageal Reflux Disease(GERD), Hyperlipidemia, Hypertension Denies:: Cancer, Diabetes Mellitus Type 1, Internal Pacemaker, MRSA, Seizures *Have you ever received a pneumonia vaccine?: Yes *Have you received a flu vaccine this season?: Yes Other Medical History: Reports: Anemia, Arthritis, Hormone Therapy Laterality Cases: Bilateral: Other Other Surgeries: Yes: Cholecystectomy, Colonoscopy, Dilation and Curettage, EGD, Hysterectomy-Total. No: Pacemaker Amputation: No Fractures: Yes (left foot) - *Social History Smoking Status: Former smoker Alcohol Intake: never Alcohol Intake Frequency:: holidays/special occasions only *Occupational Status:: other Housing: house Household Members: spouse *Travel in the last 8 weeks: None Family Hx:: Cancer, Diabetes
== END ==
PROVIDERS: PCP Internal Medicine Adolescent Medicine; Visit Provider Clinical Nurse Specialist Family Health
DX: M51.16 Intervertebral disc disorders with radiculopathy, lumbar region (principal)
CPT/HCPCS: 99212; G0463

== ENCOUNTER 2020-09-24 09:32 | Day surgery (SDC) | payer MEDICARE, OTHER, SELFPAY ==
[2020-09-24 09:42] VITALS: BP 139/69; PULSE 96; RESP 20; TEMP 37; O2SAT 94; BMI 35.2
[2020-09-24 10:23] VITALS: BP 148/88; PULSE 85; RESP 18; O2SAT 98
[2020-09-24 10:24] VITALS: BP 145/78; PULSE 88; RESP 18; O2SAT 98
[2020-09-24 10:45] VITALS: BP 124/71; PULSE 82; RESP 20; O2SAT 94
--- NOTE | 2020-09-24 11:38 | HMH.PMPROC ---
- Procedure Date: 09/24/20 Time: 11:38 Anesthesiologist:: Bharat Mobley MD Complications:: None Pre-procedure Diagnosis:: Degenerative disc disease of lumbar spine with lumbar radiculopathy symptoms Post-procedure Diagnosis:: Same Indications for Procedure:: This patient is a pleasant 70-year-old white female who we are treating for low back pain with lumbar radiculopathy symptoms. She did well with previous lumbar epidural steroid injections. Her pain is starting to return. We will do repeat lumbar epidural steroid injection under fluoroscopy today. Procedure Details:: Lumbar epidural steroid injection under fluoroscopy Informed consent was obtained and the risk and benefits of the procedure was explained to the patient. The patient was taken to the procedure room. The patient was placed prone on the procedure table. The patient was prepped and draped in sterile fashion. C-arm fluoroscopy was used to view the lumbar spine. Skin and subcutaneous tissues were anesthetized using lidocaine. I placed an 18-gauge epidural needle and advanced into the L4-L5 interspace using fluoroscopic guidance and [id number] to air. After confirmation of needle placement in the epidural space with dye I injected 2 mL of lidocaine 1.5% with Depo-Medrol 80 mg. Patient tolerated the procedure well with no complications. Plan and Disposition:: We will follow-up with her in 2 weeks. Will reevaluate symptoms at that time.
== END 2020-09-24 10:45 | disposition home or self-care (01) ==
LOC: SC.PAINP 09:34
PROVIDERS: PCP Internal Medicine Adolescent Medicine; Visit Provider Anesthesiology
DX: M51.16 Intervertebral disc disorders with radiculopathy, lumbar region (principal); I10 Essential (primary) hypertension; E78.5 Hyperlipidemia, unspecified; E11.9 Type 2 diabetes mellitus without complications; G43.909 Migraine, unspecified, not intractable, without status migrainosus; Z87.448 Personal history of other diseases of urinary system; Z88.5 Allergy status to narcotic agent; Z88.8 Allergy status to other drugs, medicaments and biological substances; Z79.890 Hormone replacement therapy; Z79.84 Long term (current) use of oral hypoglycemic drugs; Z79.899 Other long term (current) drug therapy
CPT/HCPCS: 62323; J1040; Q9966

== ENCOUNTER → 2020-10-18 10:26 | Outpatient (POV) | payer MEDICARE, OTHER, SELFPAY ==
[2020-10-18 12:33] VITALS: BP 121/74; PULSE 85; RESP 18; O2SAT 98; BMI 35.2
--- NOTE | 2020-10-18 12:41 | HMH.PAINSOAP ---
[facility] Pain Management SOAP Note Subjective:: Patient is a pleasant 70-year-old white female who presents today for follow-up after lumbar epidural steroid injection. Patient is doing well rating her pain a 4 out of 10 overall getting 80% relief from her injection. Patient is currently dealing with her and his chemotherapy. At this time she like to hold off on any additional injections until her pain begins to return. ROS General: no recent weight change, no fever, no sleep disturbances Respiratory: no cough, no shortness of air, no recurring pulmonary infections Cardiovascular/Peripheral Vascular: No chest pain, No palpitations, no edema, no shortness of breath. Gastrointestinal: no new onset incontinence, normal bowel movements reported Genitourinary: no new onset incontinence Musculoskeletal:Back pain, leg pain Psychiatric: normal mood/ affect Neurological: [denies new onset weakness in extremities], [denies new onset balance issues] Objective:: Physical Exam General: Alert and oriented x3, no acute distress, pleasant and cooperative, [on room air] Lungs: Resps E/U, Symmetrical chest expansion, Eyes: PERRL Musculoskeletal: Flexion and extension of lumbar spine somewhat guarded secondary to pain, deep tendon reflexes normal, strength in upper and lower extremities [5/5], [abnormal gait noted] Neurological: speech clear, careers adviser equal, no gross sensory deficits Assessment:: Degenerative disc disease lumbar spine lumbar radiculopathy back pain Plan:: We will see the patient back on an as-needed basis she can call our office if her pain begins to return. Dr. Mobley has reviewed this note and agrees with this plan of care. This note was dictated using voice recognition software and may contain errors or omissions [facility] History I have reviewed the patient's past medical history: Yes Medical History: Reports:: Diabetes Mellitus Type 2, Gastroesophageal Reflux Disease(GERD), Hyperlipidemia, Hypertension Denies:: Cancer, Diabetes Mellitus Type 1, Internal Pacemaker, MRSA, Seizures *Have you ever received a pneumonia vaccine?: Yes *Have you received a flu vaccine this season?: Yes Other Medical History: Reports: Anemia, Arthritis, Hormone Therapy. Denies: Blood Transfusion Reaction Laterality Cases: Bilateral: Other Other Surgeries: Yes: Cholecystectomy, Colonoscopy, Dilation and Curettage, EGD, Hysterectomy-Total. No: Pacemaker Amputation: No Fractures: Yes (left foot) - *Social History Smoking Status: Former smoker Alcohol Intake: never Alcohol Intake Frequency:: holidays/special occasions only *Occupational Status:: retired Housing: house Household Members: spouse *Travel in the last 8 weeks: None Family Hx:: Cancer, Diabetes
== END ==
PROVIDERS: PCP Internal Medicine Adolescent Medicine; Visit Provider Clinical Nurse Specialist Family Health
DX: M51.16 Intervertebral disc disorders with radiculopathy, lumbar region (principal)
CPT/HCPCS: 99212; G0463

== ENCOUNTER → 2020-11-03 11:26 | Outpatient (CLI) | payer MEDICARE, OTHER, SELFPAY ==
[2020-11-03 12:19] LABS: Alanine Aminotransferase 24 U/L (12-78); Albumin Level 4.9 g/dl (3.5-5.0); Albumin/Globulin Ratio 1.8 (1.1-1.8); Alkaline Phosphatase 75 U/L (38-126); Aspartate Amino Transferase 30 U/L (14-36); Bilirubin,Total 0.4 mg/dl (0.2-1.3); Blood Urea Nitrogen 22 mg/dl (7-17); Calcium 10.2 mg/dl (8.4-10.2); Carbon Dioxide 26 mmol/L (22.0-30.0); Chloride 104 mmol/L (98-107); Estimated Glomerular Filt Rate 83 ml/min (>60); GFR (African American) 100 ML/MIN (>60); Globulin 2.7 g/dL (1.3-3.2); Glucose 107 mg/dl (74-100); Sodium 138 mmol/L (136-145); Total Protein,Serum 7.6 g/dl (6.3-8.2)
[2020-11-03 12:35] LABS: Hemoglobin A1C 6.6 % (4.0-6.0)
== END ==
PROVIDERS: Visit Provider Internal Medicine Adolescent Medicine
DX: E11.9 Type 2 diabetes mellitus without complications (principal); Z79.84 Long term (current) use of oral hypoglycemic drugs
CPT/HCPCS: 36415; 80053; 83036

== ENCOUNTER → 2020-11-25 11:36 | Outpatient (POV) | payer MEDICARE, OTHER, SELFPAY ==
[2020-11-25 11:42] VITALS: BP 129/81; PULSE 91; RESP 20; O2SAT 94; BMI 35.2
--- NOTE | 2020-11-25 12:34 | P.CONS_ITS ---
[facility] Pain Management SOAP Note Subjective:: Patient is a pleasant 70-year-old white female who presents today for follow-up. She rates her pain an 8 out of 10. Mostly over her bilateral SI joints. Patient has a positive Mamadou test SI joint compression test Konrad's test and distraction test bilaterally. She is gotten over 80% relief of her pain in the past with injective therapy. She like to move forward with this. ROS General: no recent weight change, no fever, no sleep disturbances Respiratory: no cough, no shortness of air, no recurring pulmonary infections Cardiovascular/Peripheral Vascular: No chest pain, No palpitations, no edema, no shortness of breath. Gastrointestinal: no new onset incontinence, normal bowel movements reported Genitourinary: no new onset incontinence Musculoskeletal: Bilateral SI joint pain Psychiatric: normal mood/ affect Neurological: [denies new onset weakness in extremities], [denies new onset balance issues] Objective:: Physical Exam General: Alert and oriented x3, no acute distress, pleasant and cooperative, [on room air] Lungs: Resps E/U, Symmetrical chest expansion, Eyes: PERRL Musculoskeletal: Flexion and extension of lumbar spine somewhat guarded secondary to pain, deep tendon reflexes normal, strength in upper and lower extremities [5/5], [abnormal gait noted] Neurological: speech clear, retail office manager equal, no gross sensory deficits Assessment:: Bilateral sacroiliitis Plan:: we will set up bilateral SI joint injections with the patient. I believe given the efficacy of this in the past it will be beneficial for her. I will follow- up with her afterwards reassess her symptoms at that timeShe has been instructed to call the office if she has any issues prior to her next appointment. Dr. Mobley has reviewed this note and agrees with this plan of care. This note was dictated using voice recognition software and may contain errors or omissions [facility] History I have reviewed the patient's past medical history: Yes Medical History: Reports:: Diabetes Mellitus Type 2, Gastroesophageal Reflux Disease(GERD), Hyperlipidemia, Hypertension Denies:: Cancer, Diabetes Mellitus Type 1, Internal Pacemaker, MRSA, Seizures *Have you ever received a pneumonia vaccine?: No *Have you received a flu vaccine this season?: No Other Medical History: Reports: Anemia, Arthritis, Hormone Therapy. Denies: Blood Transfusion Reaction Laterality Cases: Bilateral: Other Other Surgeries: Yes: Cholecystectomy, Colonoscopy, Dilation and Curettage, EGD, Hysterectomy-Total. No: Pacemaker Amputation: No Fractures: Yes (left foot) - *Social History Smoking Status: Former smoker Alcohol Intake: never Alcohol Intake Frequency:: holidays/special occasions only *Occupational Status:: retired Housing: house Household Members: spouse *Travel in the last 8 weeks: None Family Hx:: Cancer, Diabetes
== END ==
PROVIDERS: PCP Internal Medicine Adolescent Medicine; Visit Provider Clinical Nurse Specialist Family Health
DX: M46.1 Sacroiliitis, not elsewhere classified (principal)
CPT/HCPCS: 99212; G0463

== ENCOUNTER 2020-12-17 09:05 | Day surgery (SDC) | payer MEDICARE, OTHER, SELFPAY ==
[2020-12-17 09:20] VITALS: BP 139/76; PULSE 95; RESP 18; TEMP 36.4; O2SAT 97; BMI 35.2
[2020-12-17 09:48] VITALS: BP 117/69; PULSE 72; RESP 18; O2SAT 98
[2020-12-17 09:50] VITALS: BP 117/69; PULSE 72; RESP 18; O2SAT 98
[2020-12-17 09:59] VITALS: BP 109/73; PULSE 95; RESP 18; O2SAT 97
--- NOTE | 2020-12-17 10:02 | HMH.PMPROC ---
- Procedure Date: 12/17/20 Time: 10:02 Anesthesiologist:: Bharat Mobley MD Complications:: None Pre-procedure Diagnosis:: Sacroiliitis Post-procedure Diagnosis:: Same Indications for Procedure:: Patient is a pleasant 70-year-old white female who we have been treating for bilateral hip pain. She is tender over both SI joints. She does have a positive Konrad's test bilaterally. She is positive Mamadou test bilaterally. She has positive SI joint compression test bilaterally. She has done very well with these injections in the past with over 80% relief for several months. Procedure Details:: B/L SI joint injection under fluoroscopy Informed consent was obtained and the risks and benefits of the procedure was explained to the patient. The patient was taken to the procedure room and placed prone on the procedure table. The patient was prepped using ChloraPrep. The skin and subcutaneous tissues overlying the SI joints were anesthetized using lidocaine. I placed a 22-gauge needle first in the left SI joint and second in the right SI joint. Needle placement was confirmed with dye. After this we injected 5 mL bupivacaine 0.25% and Depo-Medrol 40 mg into each SI joint. Patient tolerated the procedure well with no complication. Plan and Disposition:: We will follow-up with her in 2 weeks. Will reevaluate symptoms at that time.
== END 2020-12-17 10:00 | disposition home or self-care (01) ==
LOC: SC.PAINP 09:06
PROVIDERS: PCP Internal Medicine Adolescent Medicine; Visit Provider Anesthesiology
DX: M46.1 Sacroiliitis, not elsewhere classified (principal); E78.5 Hyperlipidemia, unspecified; I10 Essential (primary) hypertension; K21.9 Gastro-esophageal reflux disease without esophagitis; M19.90 Unspecified osteoarthritis, unspecified site; E11.9 Type 2 diabetes mellitus without complications; D64.9 Anemia, unspecified; Z87.891 Personal history of nicotine dependence
CPT/HCPCS: 27096; G0260; J1030; Q9966

== ENCOUNTER → 2021-01-13 08:59 | Outpatient (POV) | payer MEDICARE, OTHER, SELFPAY ==
[2021-01-13 09:15] VITALS: BP 129/69; PULSE 98; RESP 18; O2SAT 95; BMI 35.2
--- NOTE | 2021-01-13 09:26 | HMH.PAINSOAP ---
[facility] Pain Management SOAP Note Subjective:: Patient is a 70-year-old white female who presents today for follow-up after bilateral SI injections. She is being treated for chronic mid and low back pain as well as lumbar radicular symptoms. The patient says she got no relief from her SI injections. She rates her pain a 9 out of 10 today. She is currently wearing a right knee brace. She says she had a fall yesterday and is having worsening pain in her low back and knees. Per the patient, she has been advised she does need bilateral knee replacements, however, says she is not going to do surgery. Patient has also been treated in the past in our clinic with oral medications, however, failed to do a pill count and has since been stopped on any oral opiates. The patient does undergo injective therapy in the clinic. She does say that she has gotten more relief with her lumbar epidural steroid injections in the past in comparison to her SI injections. Her pain is in her mid to low back with radiation into her bilateral lower extremities with feelings of her legs giving out . Her right leg is worse than the left leg. She does report to be having bilateral knee pain as well. She also says she is having severe muscle cramps in her legs. Patient is prescribed Flexeril by Dr. Carrillo. She says that she does double up on these medications on occasion for relief. I have advised the patient risk for oversedation when taking medications other than directions directions prescribed. Review of Systems General: No recent weight changes, no fever, no sleep disturbances Respiratory: No cough, no shortness of air, no recurring pulmonary infections Cardiovascular/peripheral vascular: No chest pain, no palpitations, no edema, no shortness of breath Gastrointestinal: No new onset incontinence, normal bowel movements reported Genitourinary: No new onset incontinence Musculoskeletal: Low back pain with radiation into bilateral lower extremities?worse to right side, bilateral knee pain, mid back pain Psychiatric: Normal mood/affect Neurological: Weakness in bilateral lower extremities, frequent falls Objective:: Physical exam General: Alert and oriented x3, no acute distress, pleasant and cooperative, [on room air] Lungs: Respirations even and unlabored, symmetrical chest expansion Eyes: PERRL Musculoskeletal: Flexion and extension of thoracic and lumbar spine somewhat guarded secondary to pain, deep tendon reflexes normal, strength in upper and lower extremities [5/5], [abnormal gait noted] Neurological: Speech clear, global marketing intern equal, no gross sensory deficit Assessment:: Degenerative disc disease lumbar spine with lumbar radicular symptoms, mid back pain Plan:: Patient has gotten up to 70 to 80% relief for greater than 3 weeks with her previous lumbar epidural steroid injections. She did not get any relief with her bilateral SI injections. We will schedule her for a lumbar epidural steroid injection at L4-L5 area. She is not on any anticoagulation therapy. Patient was advised that she does need a furniture mover driver for her injections. She reports that she has not been using a furniture mover driver after her injections in the past. She has been advised on high risk of driving following any procedure such as this in the clinic. We will see her back in the clinic after injection. Risks and benefits of the procedure have been explained to the patient. Patient would like to proceed with the procedure. Possible side effects of corticosteroids have been discussed with the patient. Patient has been instructed to contact the clinic with any concerns before the next appointment. Dr. Mobley has reviewed this note and agrees with this plan of care. This note was dictated using voice recognition software and make contain errors or omissions.- [facility] History I have reviewed the patient's past medical history: Yes Medical History: Reports:: Diabetes Mellitus Type 2, Gastroesophageal Reflux
== END ==
PROVIDERS: Visit Provider Clinical Nurse Specialist Family Health
DX: M51.16 Intervertebral disc disorders with radiculopathy, lumbar region (principal); M54.6 Pain in thoracic spine
CPT/HCPCS: 99212; G0463

== ENCOUNTER 2021-01-21 10:49 | Day surgery (SDC) | payer MEDICARE, OTHER, SELFPAY ==
[2021-01-21 11:01] VITALS: BP 134/67; PULSE 95; RESP 18; TEMP 36.4; O2SAT 98; BMI 35.2
--- NOTE | 2021-01-21 11:33 | HMH.PMPROC ---
- Procedure Date: 01/21/21 Time: 11:33 Anesthesiologist:: Natalya Zaragoza MD Complications:: None Pre-procedure Diagnosis:: Degenerative disc disease of the lumbar spine, lumbar radiculopathy Post-procedure Diagnosis:: Same Indications for Procedure:: Patient is a very pleasant 70-year-old white female who presents today with chronic low back pain radiating into both legs related to the above diagnosis. She has previously undergone bilateral SI joint injections but unfortunately did not receive any pain relief from these injections. She also recently had a fall and this has caused her worsening pain in her low back and knees. She currently is utilizing a knee brace pain relief and for stability. She has tried and failed conservative treatment including oral pain medications and home traction program for greater than 6 weeks. Of note, she currently is on Flexeril for muscle spasms as well. She was previously on oral opioids but was discontinued after failing a random pill count. The plan for today is for the patient to undergo a repeat lumbar epidural steroid injection at L5-S1. Procedure Details:: Informed consent was obtained and the risk and benefits of the procedure was explained to the patient. The patient was taken to the procedure room. The patient was placed prone on the procedure table. The patient was prepped and draped in sterile fashion. C-arm fluoroscopy was used to view the lumbar spine. Skin and subcutaneous tissues were anesthetized using lidocaine. I placed an 18-gauge epidural needle and advanced into the L5-S1 interspace using fluoroscopic guidance and [id number] to air and saline. After confirmation of needle placement in the epidural space with dye I injected 2 mL of lidocaine 1.0% with Depo-Medrol 80 mg. Patient tolerated the procedure well with no complications. Plan and Disposition:: We will follow-up with this patient in 2 weeks. Will reevaluate pain symptoms at that time. She may be a candidate for intrathecal therapy in the future if her pain persists despite these injections.
[2021-01-21 11:37] VITALS: BP 117/51; PULSE 93; RESP 18; O2SAT 94
[2021-01-21 11:39] VITALS: BP 117/51; PULSE 92; RESP 18; O2SAT 95
[2021-01-21 12:00] VITALS: BP 120/66; PULSE 89; RESP 18; O2SAT 98
== END 2021-01-21 12:00 | disposition home or self-care (01) ==
LOC: SC.PAINP 10:50
PROVIDERS: PCP Internal Medicine Adolescent Medicine; Visit Provider Anesthesiology Pain Medicine
DX: M51.16 Intervertebral disc disorders with radiculopathy, lumbar region (principal); E78.5 Hyperlipidemia, unspecified; I10 Essential (primary) hypertension; K21.9 Gastro-esophageal reflux disease without esophagitis; M19.90 Unspecified osteoarthritis, unspecified site; E11.9 Type 2 diabetes mellitus without complications; D64.9 Anemia, unspecified; Z87.891 Personal history of nicotine dependence
CPT/HCPCS: 62323; J1040; Q9966

== ENCOUNTER → 2021-02-02 11:11 | Outpatient (CLI) | payer MEDICARE, OTHER, SELFPAY ==
[2021-02-02 12:35] LABS: Basophils # 0.1 K/mm3 (0-0.2); Basophils % 1.2 % (0.1-2.0); Eosinophils # 0.3 K/mm3 (0.0-0.4); Eosinophils % 3.9 % (0.1-12.0); Hematocrit 41.2 % (37.0-47.0); Hemoglobin 13.5 g/dL (12.2-16.2); Lymphocytes # 2.3 K/mm3 (0.7-4.5); Lymphocytes % 27.6 % (10-50); Mean Corpuscular HGB Conc 32.8 g/dL (31.8-35.4); Mean Corpuscular Hemoglobin 29.1 pg (27.0-31.2); Mean Corpuscular Volume 88.5 fl (81-99); Mean Platelet Volume 8.4 fl (7.4-10.4); Monocytes # 0.5 K/mm3 (0.1-1.0); Monocytes % 5.6 % (1.7-9.3); Neutrophils # 5.2 K/mm3 (1.8-7.8); Neutrophils % 61.7 % (37.0-80.0); Platelet Count 327 K/mm3 (142-424); Red Blood Count 4.66 M/mm3 (4.20-5.40); White Blood Count 8.5 K/mm3 (4.8-10.8)
[2021-02-02 13:13] LABS: Alanine Aminotransferase 19 U/L (12-78); Albumin Level 4.2 g/dl (3.5-5.0); Albumin/Globulin Ratio 1.8 (1.1-1.8); Alkaline Phosphatase 45 U/L (38-126); Aspartate Amino Transferase 27 U/L (14-36); Bilirubin,Total 0.5 mg/dl (0.2-1.3); Blood Urea Nitrogen 21 mg/dl (7-17); Calcium 9.6 mg/dl (8.4-10.2); Carbon Dioxide 28 mmol/L (22.0-30.0); Chloride 104 mmol/L (98-107); Cholesterol 161 mg/dl (140-200); Estimated Glomerular Filt Rate 83 ml/min (>60); GFR (African American) 100 ML/MIN (>60); Globulin 2.3 g/dL (1.3-3.2); Glucose 89 mg/dl (74-100); HDL Cholesterol 54 mg/dl (40-60); Sodium 141 mmol/L (136-145); Total Protein,Serum 6.5 g/dl (6.3-8.2); Triglycerides 136 mg/dl (30-150); VLDL Cholesterol 27 mg/dL (0-40)
[2021-02-02 13:24] LABS: Direct LDL Cholesterol 76.75 mg/dL (100-129)
[2021-02-02 13:30] LABS: 25-OH Vitamin D, Total 35.4 ng/mL (30-100)
[2021-02-02 13:45] LABS: Thyroid Stimulating Hormone 2.58 uIU/mL (0.465-4.68)
== END ==
PROVIDERS: Visit Provider Internal Medicine Adolescent Medicine
DX: E11.9 Type 2 diabetes mellitus without complications (principal); E78.2 Mixed hyperlipidemia; M79.10 Myalgia, unspecified site; E66.9 Obesity, unspecified; Z68.36 Body mass index [BMI] 36.0-36.9, adult; Z79.84 Long term (current) use of oral hypoglycemic drugs
CPT/HCPCS: 36415; 80053; 80061; 82306; 83735; 84443; 85025

== ENCOUNTER → 2021-02-17 10:41 | Outpatient (POV) | payer MEDICARE, OTHER, SELFPAY ==
[2021-02-17 10:48] VITALS: BP 126/83; PULSE 98; RESP 18; TEMP 37.2; O2SAT 95; BMI 35.2
--- NOTE | 2021-02-17 11:01 | HMH.PAINSOAP ---
[facility] Pain Management SOAP Note Subjective:: Patient is a pleasant 70-year-old white female that presents today for follow-up. She had lumbar epidural steroid injection on January 21, 2021. She is rating her pain today a 3 out of 10. She did get some relief from the injection, she did comment that she feels as though they are not lasting as long as they have in the past. The patient has also received SI joint injections and multiple epidurals. As of now she is not wanting to continue injective therapy. She is currently caring for her who is undergoing chemo treatments. She was also complaining today of increasing pain in her right knee. We did discuss the options of genicular nerve block/RFA in the future to help with her discomfort. The patient was also questioning intrathecal therapy today. She is currently prescribed [place] by her primary care provider, I informed her she would be unable to take this medication with a controlled substance in her pump. The patient seemed adamant that [place] does not make her overly sedated. And that she would do well with a pain pump and [place]. If intrathecal therapy is considered in the future she may be an appropriate candidate for bupivacaine pump. Her Bruce number is [phone] she is an active morphine equivalent of 15. Objective:: Physical exam General: Alert and oriented x3 no acute distress, pleasant and cooperative, [on room air] Lungs: Respirations even and unlabored, symmetrical chest expansion Eyes: PERRL Musculoskeletal: Flexion and extension of the lumbar spine nonguarded, deep tendon reflexes normal, strength in upper and lower extremities 5 out of 5 normal gait noted, crepitations noted to right knee with flexion, tenderness medial aspect of proximal tibia right side Neurological: Speech clear, service consultant equal, no gross sensory deficit Assessment:: Degenerative disc disease of the lumbar spine, lumbar radiculopathy Plan:: At this time the patient is willing to hold off on any further injective therapy as she is caring for her . She states that she will contact the office as needed to schedule any follow-up appointment/injection. Dr. Mobley has reviewed this note and agrees with this plan of care. This note was dictated using voice recognition software and make contain errors or omissions. [facility] History Medical History: Reports:: Diabetes Mellitus Type 2, Gastroesophageal Reflux Disease(GERD), Hyperlipidemia, Hypertension Denies:: Cancer, Diabetes Mellitus Type 1, Internal Pacemaker, MRSA, Seizures *Have you ever received a pneumonia vaccine?: No *Have you received a flu vaccine this season?: No Other Medical History: Reports: Anemia, Arthritis, Hormone Therapy. Denies: Blood Transfusion Reaction Laterality Cases: Bilateral: Other Other Surgeries: Yes: Cholecystectomy, Colonoscopy, Dilation and Curettage, EGD, Hysterectomy-Total. No: Pacemaker Amputation: No Fractures: Yes (left foot) - *Social History Smoking Status: Former smoker Tobacco Type: cigarettes Alcohol Intake: never Alcohol Intake Frequency:: holidays/special occasions only *Occupational Status:: retired Housing: house Household Members: spouse *Travel in the last 8 weeks: None Family Hx:: Cancer, Diabetes
== END ==
PROVIDERS: PCP Internal Medicine Adolescent Medicine; Visit Provider Family Medicine
DX: M51.16 Intervertebral disc disorders with radiculopathy, lumbar region (principal)
CPT/HCPCS: 99212; G0463

== ENCOUNTER 2021-03-16 10:30 | Outpatient (RCR) | payer MEDICARE, OTHER, SELFPAY ==
--- NOTE | 2021-02-14 11:05 | HMH.PTOPEV ---
PT Outpatient Evaluation Rehab PT Outpatient Evaluation Start: 02/14/21 10:02 Freq: Status: Active Protocol: Document 02/14/21 10:39 KERRIE (Rec: 02/14/21 11:05 KERRIE [id number]) Electronically Signed By Cristofer Bonilla PT 02/14/21 10:39 Outpatient Therapy Subjective History Subjective History THis is the initial Physical THerapy evaluation for Lila Lockhart. Pt is a 70 y/o female referred to PT for c/o R knee pain. Pt rpeorts she has had knee pain for years and has been going to arthritis center in [place] for shots in her knee . Pt reports some relief w/ shots but fades. Pt is wearing lateral unloading brace which she states does give her some relief. Pt states she has a history of falls and has fallen at least twice in the last six months Chief Complaint Pain,Stiff,Swelling,Catches/ Locks,Weakness Symptom Type Ache,Throb,Sharp,Dull,Stabbing ,Shooting Symptoms Relieved By Rest/Positioning,Ice,OTC Meds, Prescription Meds Symptoms Aggravated By Standing,Physical Activity, Walking Current Functional Limitations Housework,Standing,Squatting, Recreation Activity,Walking, Stairs Symptom Description Constant but Variable Level of pain today (0-10) 6 Pain scale - at its best (0-10) 5 Pain scale - at its worst (0-10) 10 Hip/Knee Eval Gait Observation General Gait Pattern Observation Antalgic Gait Assistive Device Assistive Devices Straight Cane Palpation Tenderness right Knee Palpation Finding Tenderness MMT left Hip Abduction Strength Grade 5 Normal Hip Adduction Strength Grade 5 Normal Hip External Rotation Strength Grade 5 Normal Hip Internal Rotation Strength Grade 5 Normal Knee Strength Reason Not Measured WFL Knee Extension Strength Grade 5 Normal Knee Flexion Strength Grade 5 Normal right Hip Abduction Strength Grade 4 Good Hip Adduction Strength Grade 4 Good Hip External Rotation Strength Grade 4- Good- Hip Internal Rotation Strength Grade 4- Good- Knee Extension Strength Grade 4- Good- Knee Flexion Strength Grade 4- Good- ROM left Knee Extension Active Range of M
== END 2021-03-16 11:20 | disposition home or self-care (01) ==
LOC: PT 10:30
PROVIDERS: PCP Internal Medicine Adolescent Medicine; Visit Provider Internal Medicine Adolescent Medicine
DX: M25.561 Pain in right knee (principal)
CPT/HCPCS: 97010; 97014; 97110; 97163; G0283

== ENCOUNTER → 2021-09-05 09:48 | Outpatient (POV) | payer MEDICARE, OTHER, SELFPAY ==
[2021-09-05 10:17] VITALS: BP 130/72; PULSE 100; RESP 18; O2SAT 95; BMI 34.0
--- NOTE | 2021-09-05 12:19 | P.CONS_ITS ---
[facility] Pain Management SOAP Note Subjective:: Patient is a very pleasant 70-year-old white female who presents today for follow-up. She is currently being treated for degenerative disc disease of lumbar spine and lumbar radiculopathy. She previously has undergone multiple lumbar epidural steroid injections as well as SI joint injections. She is currently prescribed [place] by her primary care physician which she states helps manage her chronic pain symptoms. We have also previously discussed intrathecal therapy with the bupivacaine pump. She states that most of her pain is in her back with minimal radiation down her legs. She states that the pain is worse with bending and twisting activities. She states that the epidural injection kashif hawthorne received helped somewhat relieve her pain temporarily but she states that it did not last long. She rates her pain today as a 10 out of 10. Objective:: General: Alert and oriented x3, no acute distress, pleasant and cooperative Lungs: Resps E/U, symmetric chest expansion Eyes: PERRL Musculoskeletal: limited flexion and extension of the lumbar spine secondary to pain. Deep tendon reflexes were normal in bilateral lower extremities. Motor exam was grossly intact in the bilateral lower extremities, antalgic gait noted. 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 I believe she still will be a good candidate for intrathecal therapy but given that she would like to hold off on intrathecal therapy at this time I believe the above injection will help given her primary pain generators. We will follow-up with this patient in 2 to 3 weeks to perform the above injection. [facility] History Medical History: Reports:: Diabetes Mellitus Type 2, Gastroesophageal Reflux Disease(GERD), Hyperlipidemia, Hypertension Denies:: Cancer, Diabetes Mellitus Type 1, Internal Pacemaker, MRSA, Seizures *Have you ever received a pneumonia vaccine?: No *Have you received a flu vaccine this season?: No Other Medical History: Reports: Anemia, Arthritis, Hormone Therapy. Denies: Blood Transfusion Reaction Laterality Cases: Bilateral: Other Other Surgeries: Yes: Cholecystectomy, Colonoscopy, Dilation and Curettage, EGD, Hysterectomy-Total. No: Pacemaker Amputation: No Fractures: Yes (left foot) - *Social History Smoking Status: Former smoker Tobacco Type: cigarettes Alcohol Intake: never Alcohol Intake Frequency:: holidays/special occasions only *Occupational Status:: unemployed Housing: house Household Members: spouse *Travel in the last 8 weeks: None Family Hx:: Cancer, Diabetes
== END ==
PROVIDERS: Visit Provider Anesthesiology Pain Medicine
DX: M51.16 Intervertebral disc disorders with radiculopathy, lumbar region (principal); M47.896 Other spondylosis, lumbar region; M54.06 Panniculitis affecting regions of neck and back, lumbar region; M46.1 Sacroiliitis, not elsewhere classified
CPT/HCPCS: 99212; G0463

== ENCOUNTER 2021-09-23 09:40 | Day surgery (SDC) | payer MEDICARE, OTHER, SELFPAY ==
[2021-09-23 09:49] VITALS: BP 130/82; BP 134/84; BP 140/74; PULSE 92; PULSE 96; PULSE 97; RESP 18; RESP 20; TEMP 36.3; O2SAT 94; O2SAT 97; O2SAT 98; BMI 34.0
[2021-09-23 10:30] VITALS: BP 139/72; PULSE 88; RESP 20; O2SAT 96
--- NOTE | 2021-09-23 10:33 | HMH.PMPROC ---
- Procedure Date: 09/23/21 Time: 10:33 Anesthesiologist:: Bharat Mobley MD Complications:: None Pre-procedure Diagnosis:: Degenerative disc disease of lumbar spine with radiculopathy with lumbar facet arthropathy and lumbar spondylosis Post-procedure Diagnosis:: Same Indications for Procedure:: This patient is a pleasant 71-year-old white female who we are treating for low back pain with lumbar spondylosis and lumbar facet arthropathy. We are talking to her about intrathecal therapy however her grandson is getting in October and she would like to wait until after the wedding to pursue intrathecal pump trial. We will plan on lumbar medial branch block/facet joint injections to see if this will help with some of her axial back pain as most of her pain is with twisting and extension. Procedure Details:: Lumbar medial branch block Informed consent was obtained and the risks and benefits of the procedure was explained to the patient. The back was prepped using ChloraPrep. The skin and subcutaneous tissues were anesthetized using lidocaine. I placed 22-gauge spinal needles into the facet joint/medial branches of L4-L5 and L5-S1 bilaterally. Needle placement was confirmed with dye. After this we injected 3 mL bupivacaine 0.25% and Depo-Medrol 20 mg into each facet joint/medial branch of L4-L5 and L5-S1 bilaterally. We used a total of 80 mg Depo-Medrol for both levels bilaterally. The patient tolerated the procedure well with no complications. Plan and Disposition:: We will follow-up with her in 2 weeks. Will reevaluate symptoms at that time. If these are successful she may be a candidate for RF ablation to these levels of L4-5 and L5-S1 bilaterally.
== END 2021-09-23 10:30 | disposition home or self-care (01) ==
LOC: SC.PAINP 09:42
PROVIDERS: PCP Internal Medicine Adolescent Medicine; Visit Provider Anesthesiology
DX: M51.16 Intervertebral disc disorders with radiculopathy, lumbar region (principal); M54.06 Panniculitis affecting regions of neck and back, lumbar region; M47.896 Other spondylosis, lumbar region; I10 Essential (primary) hypertension; E11.9 Type 2 diabetes mellitus without complications; M19.90 Unspecified osteoarthritis, unspecified site
CPT/HCPCS: 64493; 64494; J1040; Q9966

== ENCOUNTER → 2021-10-20 10:16 | Outpatient (POV) | payer MEDICARE, OTHER, SELFPAY ==
[2021-10-20 10:25] VITALS: BP 144/68; PULSE 91; RESP 20; O2SAT 97; BMI 34.1
--- NOTE | 2021-10-20 11:33 | HMH.PAINSOAP ---
[facility] Pain Management SOAP Note Subjective:: Patient is a pleasant 71-year-old female who is here for a follow up after lumbar medial branch blocks/facet joint injection at L4-L5 and L5-S1 bilaterally on September 23, 2022. Patient is currently being treated for degenerative disc disease of lumbar spine with lumbar radiculopathy symptoms, facet arthropathy, lumbar spondylosis, right knee pain. After the procedure, patients reports 80 to 90% relief and rates pain today at 3 out of 10. Patient denies any issues after the procedure. Patient states that this injection lasted for about 3 weeks but she feels like the effects are starting to wear off. It still helping her significantly. She is also taking [place] 7.5 mg twice a day this prescribed by Dr. Edwards. Bruce number [id number] with an active morphine equivalent 15. Drug screens have been reviewed and appropriate. Patient also presents with a right knee brace. She says that she has severe osteoarthritis on her right knee and has had intra-articular injections in the past. She says that she is a candidate for a knee replacement but does not want to move forward with that procedure yet. Review of Systems: General: No recent weight changes, no fever, no sleep disturbances Respiratory: No cough, no shortness of air, no recurring pulmonary infections Cardiovascular/peripheral vascular: No chest pain, no palpitations, no edema, no shortness of breath Gastrointestinal: No new onset incontinence, normal bowel movements reported Genitourinary: No new onset incontinence Musculoskeletal: Low back pain, right knee pain Psychiatric: [Normal mood/affect] Neurological: [Denies weakness in extremities], [denies balance issues] Objective:: Physical Exam: General: Alert and oriented x3, no acute distress, pleasant and cooperative, [on room air] Lungs: Respirations even and unlabored, symmetrical chest expansion Eyes: PERRL Musculoskeletal: Flexion and extension of lumbar [spine] somewhat guarded secondary to pain, [antalgic gait noted]; limited range of motion of the right knee secondary to pain Neurological: Speech clear, no gross sensory deficit Assessment:: Degenerative disc disease of lumbar spine with lumbar radiculopathy symptoms Facet arthropathy Lumbar spondylosis Right knee osteoarthritis Plan:: Patient continues to have relief after her medial branch block at L4-L5 L5-S1 bilaterally. She does not need any repeat injections anytime soon. She says that she has a vacation to go to in January and would like to get an injection before that. We will see her in 2 months. I also discussed with the patient that we can do genicular nerve blocks and ablation on her right knee. She can give us a call if she ever wants to schedule any of these procedures. Patient has been instructed to contact the clinic with any concerns before the next appointment. Dr. Mobley has reviewed this note and agrees with this plan of care. This note was dictated using voice recognition software and make contain errors or omissions. [facility] History Medical History: Reports:: Diabetes Mellitus Type 2, Gastroesophageal Reflux Disease(GERD), Hyperlipidemia, Hypertension Denies:: Cancer, Diabetes Mellitus Type 1, Internal Pacemaker, MRSA, Seizures *Have you ever received a pneumonia vaccine?: No *Have you received a flu vaccine this season?: No Other Medical History: Reports: Anemia, Arthritis, Hormone Therapy. Denies: Blood Transfusion Reaction Laterality Cases: Bilateral: Other Other Surgeries: Yes: Cholecystectomy, Colonoscopy, Dilation and Curettage, EGD, Hysterectomy-Total. No: Pacemaker Amputation: No Fractures: Yes (left foot) - *Social History Smoking Status: Never smoker Tobacco Type: cigarettes Alcohol Intake: never Alcohol Intake Frequency:: holidays/special occasions only *Occupational Status:: retired Housing: house Household Members: spouse *Travel in the last 8 weeks: None Family Hx:: No significant fa
== END ==
PROVIDERS: Visit Provider Student in an Organized Health Care Education/Training Program
DX: M51.16 Intervertebral disc disorders with radiculopathy, lumbar region (principal); M54.06 Panniculitis affecting regions of neck and back, lumbar region; M47.896 Other spondylosis, lumbar region; M17.11 Unilateral primary osteoarthritis, right knee
CPT/HCPCS: 99212; G0463

== ENCOUNTER → 2021-12-22 09:17 | Outpatient (POV) | payer MEDICARE, OTHER, SELFPAY ==
[2021-12-22 09:25] VITALS: BP 131/80; PULSE 99; RESP 18; TEMP 35.9; O2SAT 96; BMI 35.2
--- NOTE | 2021-12-22 09:50 | HMH.PAINSOAP ---
[facility] Pain Management SOAP Note Subjective:: Patient is a pleasant 71-year-old female who presents today for follow-up. Patient is current being treated for degenerative disc disease of lumbar spine with lumbar radiculopathy symptoms, facet arthropathy, lumbar spondylosis, right knee pain. We have been managing this patient with injective therapy. When we last saw her, we did a diagnostic medial branch block/facet injections at L4-L5 and L5-S1 bilaterally on September 23, 2021. After that procedure, patient had 80 to 90% relief and rated her pain as 3 out of 10. We did not schedule her for a repeat injection at that time because she was doing significantly well. Today, patient presents with worsening low back pain and right knee pain. She is needing repeat injections. She rates her pain today as 9 out of 10. Patient is also taking [place] 7.5 mg twice a day that is prescribed by her PCP. She states that this medication is somewhat helping her pain but she feels like she needs a third dose at times. She also comes in today with a right knee brace. She does not want to proceed with any surgical intervention for her right knee. She had intra-articular injections in the past that provided some relief. She has not had any recent injections. Bruce [phone] with an active morphine equivalent of 15. Review of Systems: General: No recent weight changes, no fever, no sleep disturbances Respiratory: No cough, no shortness of air, no recurring pulmonary infections Cardiovascular/peripheral vascular: No chest pain, no palpitations, no edema, no shortness of breath Gastrointestinal: No new onset incontinence, normal bowel movements reported Genitourinary: No new onset incontinence Musculoskeletal: Low back pain, right knee pain Psychiatric: [Normal mood/affect] Neurological: [Denies weakness in extremities], [denies balance issues] Objective:: Physical Exam: General: Alert and oriented x3, no acute distress, pleasant and cooperative Lungs: Respirations even and unlabored, symmetrical chest expansion Eyes: PERRL Musculoskeletal: Flexion and extension of lumbar [spine] somewhat guarded secondary to pain, [antalgic gait noted]; limited range of motion of the right knee secondary to pain; +Webb's test Neurological: Speech clear, no gross sensory deficit Assessment:: Degenerative disease of lumbar spine with lumbar radiculopathy symptoms, lumbar facet arthropathy, lumbar spondylosis, osteoarthritis of the right knee Plan:: Patient has tried and failed conservative therapy in the past such as oral medication, physical therapy and home exercises that all provided minimal relief. Patient presents today with worsening low back pain. Patient is tender to palpation around her lumbar facets. Pain is worse with any lumbar extension. Patient has a positive Kemps test. We will schedule the patient for a diagnostic medial branch block/facet injections at bilateral L4-L5 and L5-S1. Risks and benefits of the procedure have been explained to the patient. Patient would like to proceed with the procedure. I again discussed with the patient that we can do genicular nerve blocks for her right knee and possibly proceed with an ablation. She states that she wants some time to think about moving forward with that procedure. Patient has been instructed to contact the clinic with any concerns before the next appointment. Dr. Mobley has reviewed this note and agrees with this plan of care. This note was dictated using voice recognition software and make contain errors or omissions. [facility] History Medical History: Reports:: Diabetes Mellitus Type 2, Gastroesophageal Reflux Disease(GERD), Hyperlipidemia, Hypertension Denies:: Cancer, Diabetes Mellitus Type 1, Internal Pacemaker, MRSA, Seizures *Have you ever received a pneumonia vaccine?: No *Have you received a flu vaccine this season?: No Other Medical History: Reports: Anemia, Arthritis, Hormone Therapy. Denies: Blood Transfu
== END ==
PROVIDERS: Visit Provider Student in an Organized Health Care Education/Training Program
DX: M51.16 Intervertebral disc disorders with radiculopathy, lumbar region (principal); M47.26 Other spondylosis with radiculopathy, lumbar region; M25.561 Pain in right knee
CPT/HCPCS: 99212; G0463

== ENCOUNTER 2022-01-06 09:56 | Day surgery (SDC) | payer MEDICARE, OTHER, SELFPAY ==
[2022-01-06 10:08] VITALS: BP 139/84; PULSE 100; RESP 20; TEMP 36.4; O2SAT 94; BMI 33.1
[2022-01-06 10:56] VITALS: BP 129/74; PULSE 88; RESP 20; O2SAT 96
[2022-01-06 11:11] VITALS: BP 115/77; PULSE 77; RESP 18; O2SAT 96
--- NOTE | 2022-01-06 11:25 | P.PCN_ITS ---
- Procedure Date: 01/06/22 Time: 11:25 Anesthesiologist:: Bharat Mobley MD Complications:: None Pre-procedure Diagnosis:: Degenerative disc disease of lumbar spine with lumbar spondylosis and lumbar facet arthropathy Post-procedure Diagnosis:: Same Indications for Procedure:: Patient is a pleasant 71-year-old white female who we are treating for low back pain with lumbar spondylosis and lumbar facet arthropathy. She has increased pain with extension and twisting. She is tender over the facet joints of L4-5 and L5-S1 bilaterally. She has had 1 round of medial branch blocks and she was 89% better. Her pain is now returned. She presents for second round of medial branch blocks today. Procedure Details:: Lumbar medial branch block Informed consent was obtained and the risks and benefits of the procedure was explained to the patient. The back was prepped using ChloraPrep. The skin and subcutaneous tissues were anesthetized using lidocaine. I placed 22-gauge spinal needles into the facet joint/medial branches of L4-L5 and L5-S1 bilaterally. Needle placement was confirmed with dye. After this we injected 3 mL bupivacaine 0.25% and Depo-Medrol 20 mg into each facet joint/medial branch of L4-L5 and L5-S1 bilaterally. We used a total of 80 mg Depo-Medrol for both levels bilaterally. The patient tolerated the procedure well with no complic ations. Plan and Disposition:: We will follow-up with this patient in 2 weeks. Will reevaluate her symptoms at that time. If successful we will plan on RF ablation to the facet joints of L4- 5 and L5-S1 bilaterally.
== END 2022-01-06 11:11 | disposition home or self-care (01) ==
LOC: SC.PAINP 09:57
PROVIDERS: PCP Internal Medicine Adolescent Medicine; Visit Provider Anesthesiology
DX: M51.36 Other intervertebral disc degeneration, lumbar region (principal); M54.06 Panniculitis affecting regions of neck and back, lumbar region; M47.816 Spondylosis without myelopathy or radiculopathy, lumbar region
CPT/HCPCS: 64493; 64494; J1040; Q9966

== ENCOUNTER → 2022-01-30 11:08 | Outpatient (POV) | payer MEDICARE, OTHER, SELFPAY ==
--- NOTE | 2022-01-30 12:16 | HMH.PAINSOAP ---
[facility] Pain Management SOAP Note Subjective:: Patient is a pleasant 71-year-old female that presents today for follow-up. We are currently treating the patient for degenerative disc disease of lumbar spine with lumbar radiculopathy symptoms, right knee pain, lumbar spondylosis, lumbar facet arthropathy. Patient rates her pain today at 3 out of 10. She states this pain is in her back and describes it as a throbbing that is worse with increased activity. She did have her 2nd lumbar medial branch block that she is rating 70-80% improvement since the injection. She feels that this injection is still helping give her relief currently. She states she has increased her activity and she took a trip this past weekend and overall her pain was significantly better. we have been managing this patient with injective therapy. Her first medial branch block injection provided 80 to 90% relief. Patient does take [place] 7.5 mg twice daily from her primary care Dr. Edwards. Patient denies any problems with this medication. She states it does help manage her pain. Patient started using a compounding cream and states that it is given great relief. She does have a history of falls as well as back surgery and a broken tailbone. Patient denies any new injuries or trauma. Patient denies any changes to the location or type of pain she experiences. Her Bruce is [phone]. It has been reviewed and appropriate Review of Systems: General: No recent weight changes, no fever, no sleep disturbances Respiratory: No cough, no shortness of air, no recurring pulmonary infections Cardiovascular/peripheral vascular: No chest pain, no palpitations, no edema, no shortness of breath Gastrointestinal: No new onset incontinence, normal bowel movements reported Genitourinary: No new onset incontinence Musculoskeletal: Low back pain, right knee pain Psychiatric: [Normal mood/affect] Neurological: [Denies weakness in extremities], [denies balance issues] Objective:: Physical Exam: General: Alert and oriented x3, no acute distress, pleasant and cooperative Lungs: Respirations even and unlabored, symmetrical chest expansion Eyes: PERRL Musculoskeletal: Flexion and extension of knee, lumbar [spine] somewhat guarded secondary to pain, [antalgic gait noted] Neurological: Speech clear, no gross sensory deficit Assessment:: Degenerative disc disease of lumbar spine with lumbar radiculopathy symptoms, facet arthropathy, lumbar spondylosis, right knee pain Plan:: Patient has had 70 to 80% relief with her second medial branch block at L4-L5, L5-S1 bilaterally. I feel she will be a good candidate for the ablation. I have discussed with the patient about proceeding forward with a RFA. Risk and benefits were discussed to the patient patient would like to proceed forward with this injection. Patient is not on any blood thinners. We will schedule the today for a RFA at L4-L5, L5-S1 bilaterally. Patient has been instructed to contact the clinic with any concerns before the next appointment. Dr. Mobley has reviewed this note and agrees with this plan of care. This note was dictated using voice recognition software and make contain errors or omissions. [facility] History I have reviewed the patient's past medical history: Yes Medical History: Reports:: Diabetes Mellitus Type 2, Gastroesophageal Reflux Disease(GERD), Hyperlipidemia, Hypertension Denies:: Cancer, Diabetes Mellitus Type 1, Internal Pacemaker, MRSA, Seizures *Have you ever received a pneumonia vaccine?: No *Have you received a flu vaccine this season?: No Other Medical History: Reports: Anemia, Arthritis, Hormone Therapy. Denies: Blood Transfusion Reaction Laterality Cases: Bilateral: Other Other Surgeries: Yes: Cholecystectomy, Colonoscopy, Dilation and Curettage, EGD, Hysterectomy-Total. No: Pacemaker Amputation: No Fractures: Yes (left foot) - *Social History Smoking Status: Never smoker Tobacco Type: cigarettes Alcohol Intake: never
[2022-01-30 13:53] VITALS: BP 139/74; PULSE 90; RESP 20; TEMP 36.4; O2SAT 95; BMI 34.1
== END ==
PROVIDERS: Visit Provider Student in an Organized Health Care Education/Training Program
DX: M51.16 Intervertebral disc disorders with radiculopathy, lumbar region (principal); M47.896 Other spondylosis, lumbar region; M25.561 Pain in right knee
CPT/HCPCS: 99212; G0463

== ENCOUNTER 2022-03-07 08:46 | Day surgery (SDC) | payer MEDICARE, OTHER, SELFPAY ==
[2022-03-07 08:58] VITALS: BP 129/84; BP 139/71; PULSE 91; PULSE 97; RESP 20; TEMP 36.5; TEMP 36.6; O2SAT 95; O2SAT 98; BMI 34.4
--- NOTE | 2022-03-07 09:43 | P.PCN_ITS ---
- Procedure Date: 03/07/22 Time: 09:44 Anesthesiologist:: Bharat Mobley MD Complications:: None Pre-procedure Diagnosis:: Degenerative disc disease of lumbar spine with lumbar facet arthropathy and lumbar spondylosis Post-procedure Diagnosis:: Same Indications for Procedure:: This patient is a pleasant 71-year-old white female who we are treating for low back pain with lumbar spondylosis and lumbar facet arthropathy. She has done well with previous medial branch blocks with 80 to 90% relief in pain symptoms for several weeks. She presents for RF ablation of the same levels of L4-5 and L5-S1. She has had 2 successful diagnostic blocks. Procedure Details:: Lumbar RFA informed consent was obtained and the risk and benefits of the procedure was explained to the patient. Patient was placed prone on the procedure table. The patient was prepped and draped in sterile fashion. C-arm fluoroscopy was used to view the lumbar spine. The skin and subcutaneous tissues were anesthetized using lidocaine. I placed 20-gauge RF needles into the facet joints of L4-5 and L5-S1 bilaterally. We underwent sensory stimulation. There is good sensory stimulation at 0.8 V. We underwent motor stimulation. There is no motor stimulation at 2 V. We then anesthetized these levels with lidocaine and Depo- Medrol. I used a total of 80 mg Depo-Medrol for both levels. I then burned both levels of L4-5 and L5-S1 facet joint/medial branches bilaterally for 4 minutes at 80 ?C. Patient tolerated the procedure well with no complication. Plan and Disposition:: We will follow-up with this patient in 2 weeks. Will reevaluate symptoms at that time.
== END 2022-03-07 09:30 | disposition home or self-care (01) ==
LOC: SC.PAINP 08:46
PROVIDERS: PCP Internal Medicine Adolescent Medicine; Visit Provider Anesthesiology
DX: M51.36 Other intervertebral disc degeneration, lumbar region (principal); M47.816 Spondylosis without myelopathy or radiculopathy, lumbar region
CPT/HCPCS: 64635; 64636; J1040

== ENCOUNTER → 2022-03-21 10:22 | Outpatient (POV) | payer MEDICARE, OTHER, SELFPAY ==
[2022-03-21 10:33] VITALS: BP 123/67; PULSE 84; RESP 18; TEMP 37.3; O2SAT 93; BMI 35.2
--- NOTE | 2022-03-21 12:49 | A.OFFVIS_ITS ---
[facility] Pain Management SOAP Note Subjective:: Patient is a pleasant 71-year-old female that presents today for follow-up from lumbar RFA at L4-5 and L5-S1 bilaterally on 03/07/2022. We are currently treating the patient for degenerative disc disease of lumbar spine with lumbar radiculopathy symptoms, right knee pain, lumbar spondylosis, lumbar facet arthropathy. Patient states that she has had significant improvement following this injection and feels like she is still getting relief. She states that she has had roughly 60 to 70% improvement. Today the patient rates her pain a 4 out of 10 and states it is primarily in her back and legs. She states this is a tingling/achy sensation that is worse at night. Patient states she has frequently has to get up in the middle the night and move around in order to get any relief. We have done injective therapy in the past that is provided significant improvement of her symptoms. She does currently take [place] 7.5 mg twice daily from Dr. Edwards's office. Patient denies any side effects from these medications and states these medications do adequately manage her pain. She is also prescribed compounding cream that she states helped substantially with her symptoms. Patient states in the past she had been on restless leg syndrome medications however it has been years. Patient is also prescribed a muscle relaxer Flexeril 10 mg 3 times a day. She states this medication does still help however not as well as when it initially was started. Her Bruce is [id number]. It has been reviewed and appropriate. Review of Systems: General: No recent weight changes, no fever, no sleep disturbances Respiratory: No cough, no shortness of air, no recurring pulmonary infections Cardiovascular/peripheral vascular: No chest pain, no palpitations, no edema, no shortness of breath Gastrointestinal: No new onset incontinence, normal bowel movements reported Genitourinary: No new onset incontinence Musculoskeletal: Low back pain, bilateral leg pain Psychiatric: [Normal mood/affect] Neurological: [Denies weakness in extremities], [denies balance issues] Objective:: Physical Exam: General: Alert and oriented x3, no acute distress, pleasant and cooperative Lungs: Respirations even and unlabored, symmetrical chest expansion Eyes: PERRL Musculoskeletal: Flexion and extension of lumbar [spine] somewhat guarded secondary to pain, [antalgic gait noted] Neurological: Speech clear, no gross sensory deficit Assessment:: Degenerative disc disease of lumbar spine with lumbar radiculopathy symptoms, right knee pain, lumbar spondylosis, lumbar facet arthropathy Plan:: Patient continues to have significant pain in her low back and bilateral legs specifically at night. I have discussed with the patient regarding starting her on ropinirole 0.25 mg at night. I will provide a 14-day supply of this medication. Patient will follow-up in office in 2 weeks for reevaluation of symptoms and medication refill if indicated. Patient has been instructed to contact the clinic with any concerns before the next appointment. Dr. Mobley has reviewed this note and agrees with this plan of care. This note was dictated using voice recognition software and make contain errors or omissions. PFSH PFS Social History Smoking Status: Never smoker alcohol intake: never current occupational status: retired Travel in the last 8 weeks: None household members: spouse housing: house current occupational exposures/hazards: No caffeine: Yes
== END | disposition home or self-care (01) ==
PROVIDERS: PCP Internal Medicine Adolescent Medicine; Visit Provider Nurse Practitioner Family
DX: M51.16 Intervertebral disc disorders with radiculopathy, lumbar region (principal); M47.26 Other spondylosis with radiculopathy, lumbar region; M25.561 Pain in right knee
CPT/HCPCS: 99212; G0463

== ENCOUNTER → 2022-03-27 09:04 | Outpatient (POV) | payer MEDICARE, OTHER, SELFPAY ==
--- NOTE | 2022-03-27 09:24 | EXP.PAIN.SOA ---
[facility] Pain Management SOAP Note Subjective:: Patient is a pleasant 71-year-old female who presents today for follow-up. We are currently treating the patient for degenerative disc disease of lumbar spine with lumbar radiculopathy symptoms,right knee pain, lumbar spondylosis, lumbar facet arthropathy, restless leg syndrome. Patient had recently just been put on ropinirole 0.25 mg at night and given a 14-day supply of this medication. Patient states that she does feel like she has gotten significant improvement with this medication. Today she rates her pain a 4 out of 10 and states is primarily in her low back and legs. This is a achy sensation that is worse at night. Patient does states she has gotten improvement through the night and not had to get up as often since starting this medication. We have done injective therapy in the past for this patient she is currently managed with [place] 7.5 mg 2 times a day from Dr. Hernandez's office. She denies any side effects from this medication and states this medication is adequately managing her pain. She is also continuing to use her compounding cream that she states does provide significant improvement of her symptoms. Her Bruce is [id number]. It is been reviewed and appropriate. Review of Systems: General: No recent weight changes, no fever, no sleep disturbances Respiratory: No cough, no shortness of air, no recurring pulmonary infections Cardiovascular/peripheral vascular: No chest pain, no palpitations, no edema, no shortness of breath Gastrointestinal: No new onset incontinence, normal bowel movements reported Genitourinary: No new onset incontinence Musculoskeletal: Low back pain, bilateral leg pain Psychiatric: [Normal mood/affect] Neurological: [Denies weakness in extremities], [denies balance issues] Objective:: Physical Exam: General: Alert and oriented x3, no acute distress, pleasant and cooperative Lungs: Respirations even and unlabored, symmetrical chest expansion Eyes: PERRL Musculoskeletal: Flexion and extension of lumbar [spine] somewhat guarded secondary to pain, [antalgic gait noted] Neurological: Speech clear, no gross sensory deficit Assessment:: Degenerative disc disease of lumbar spine with lumbar radiculopathy symptoms, right knee pain, lumbar spondylosis, lumbar facet arthropathy, restless leg syndrome Plan:: Patient states she has had significant improvement of her leg symptoms at night following starting the ropinirole 0.25 mg. I will refill this medication and provide a 3-month supply. Patient will follow-up in 3 months. She will return to clinic for follow-up, reevaluation of symptoms and medication refill. Patient has been instructed to contact the clinic with any concerns before the next appointment. Dr. Mobley has reviewed this note and agrees with this plan of care. This note was dictated using voice recognition software and make contain errors or omissions. PFSH PFSH Social History Smoking Status: Never smoker alcohol intake: never current occupational status: retired Travel in the last 8 weeks: None household members: spouse housing: house current occupational exposures/hazards: No caffeine: Yes
[2022-03-27 09:28] VITALS: BP 112/76; PULSE 81; RESP 18; TEMP 36.6; O2SAT 95; BMI 35.2
== END | disposition home or self-care (01) ==
PROVIDERS: Visit Provider Nurse Practitioner Family
DX: M51.16 Intervertebral disc disorders with radiculopathy, lumbar region (principal); M47.26 Other spondylosis with radiculopathy, lumbar region; G25.81 Restless legs syndrome; M25.561 Pain in right knee
CPT/HCPCS: 99212; G0463

== ENCOUNTER → 2022-06-20 08:48 | Outpatient (POV) | payer MEDICARE, OTHER, SELFPAY ==
--- NOTE | 2022-06-20 08:57 | EXP.PAIN.SOA ---
[facility] Pain Management SOAP Note Subjective:: Patient is a pleasant 71-year-old female who presents today for 3-month follow-up. We are currently treating the patient for degenerative disc disease of lumbar spine with lumbar radiculopathy symptoms, lumbar spondylosis, lumbar facet arthropathy, restless leg syndrome, right knee pain. Today the patient rates her pain a 5 out of 10. Patient denies any new trauma or injury. Patient denies any change location or type of pain she experiences. Patient states she has allover pain in her joints as well as her low back. Patient describes this as a achy sensation that is worse at night. Patient was previously given ropinirole 0.25 mg at night that did initially seem to be helping however the patient states that she has not noticed any additional benefit and is requesting an increase of this medication. Patient denies any side effects from this medication. We have done multiple injections in the past that provided significant improvement of her symptoms. She is currently managed with [place] 7.5 mg twice a day from Dr. Hernandez's office. Patient denies any side effects from this medication. She states this does provide significant improvement. She does also continue to use her compounding cream that provides additional relief. Patient states she has a history of carpal tunnel syndrome that she has not had surgery for. Patient was previously seeing Dr. Man who stated that she needed both her shoulders replaced as well as her right knee. Patient continues to use a right knee brace and states she is trying to hold off having to have surgery of any kind. Patient does continue to see a chiropractor from time to time which provides additional improvement of her back symptoms. Patient does use a cane for ambulation and states that she no longer attempts up and down stairs due to her pain and instability. Her Bruce is [id number]. It has been reviewed and appropriate. Review of Systems: General: No recent weight changes, no fever, no sleep disturbances Respiratory: No cough, no shortness of air, no recurring pulmonary infections Cardiovascular/peripheral vascular: No chest pain, no palpitations, no edema, no shortness of breath Gastrointestinal: No new onset incontinence, normal bowel movements reported Genitourinary: No new onset incontinence Musculoskeletal: Generalized joint pain, low back pain Psychiatric: [Normal mood/affect] Neurological: [Denies weakness in extremities], [denies balance issues] Objective:: Physical Exam: General: Alert and oriented x3, no acute distress, pleasant and cooperative Lungs: Respirations even and unlabored, symmetrical chest expansion Eyes: PERRL Musculoskeletal: Flexion and extension of lumbar [spine] somewhat guarded secondary to pain, [antalgic gait noted] Neurological: Speech clear, no gross sensory deficit Assessment:: degenerative disc disease of lumbar spine with lumbar radiculopathy symptoms, right knee pain, lumbar spondylosis, lumbar facet arthropathy, restless leg syndrome Plan:: Patient continues to experience significant pain in her bilateral shoulders, right knee and low back. I will refill the patient's ropinirole and increase it to 0.5 mg twice daily and provide a 3-month supply of this medication. At this time, the patient does not require any injective therapy however I have counseled the patient that if following her chiropractor visit if she feels like she needs a lumbar epidural to contact our office and we will get it scheduled. Patient will return to clinic in 3 months for reevaluation of symptoms, medication refill and follow-up. Patient has been instructed to contact the clinic with any concerns before the next appointment. Dr. Mobley has reviewed this note and agrees with this plan of care. This note was dictated using voice recognition software and make contain errors or omissions. [facility] Disclaimer: The information contained in this section may have been u
[2022-06-20 09:10] VITALS: BP 121/64; RESP 20; O2SAT 94; BMI 35.2
== END | disposition home or self-care (01) ==
PROVIDERS: PCP Internal Medicine Adolescent Medicine; Visit Provider Nurse Practitioner Family
DX: M51.16 Intervertebral disc disorders with radiculopathy, lumbar region (principal); M47.26 Other spondylosis with radiculopathy, lumbar region; G25.81 Restless legs syndrome; M25.561 Pain in right knee
CPT/HCPCS: 99212; G0463

== ENCOUNTER → 2022-09-18 08:29 | Outpatient (POV) | payer MEDICARE, OTHER, SELFPAY ==
--- NOTE | 2022-09-18 08:36 | EXP.PAIN.SOA ---
[facility] Pain Management SOAP Note Subjective:: Patient is a pleasant 71-year-old female who presents today for 3-month follow-up.? We are currently treating the patient for degenerative disc disease of lumbar spine with lumbar radiculopathy symptoms, lumbar spondylosis, lumbar facet arthropathy, restless leg syndrome, right knee pain, generalized joint pain.? Today the patient rates her pain a 8 out of 10.? Patient denies any new trauma or injury.? Patient denies any change location or type of pain she experiences.? She states that her pain is still all in her joints, low back and bilateral hands related to carpal tunnel syndrome. Patient states that she has taken her medication this morning and it is starting to ease up the now. She is scheduled to have bilateral carpal tunnel release tomorrow at [facility] by Dr. Estrada. At our last visit we did increase her ropinirole to 0.5 mg at bedtime and today she states that is significantly improved her restless leg syndromes at night. She is currently managed with [place] 7.5 mg twice a day from Dr. Edwards's office.? Patient denies any side effects from this medication. She also uses compounding cream to provide additional relief. She does continue to use a cane for additional help with ambulation. Her Bruce is [id number].? It has been reviewed and appropriate. Review of Systems: General: No recent weight changes, no fever, no sleep disturbances Respiratory: No cough, no shortness of air, no recurring pulmonary infections Cardiovascular/peripheral vascular: No chest pain, no palpitations, no edema, no shortness of breath Gastrointestinal: No new onset incontinence, normal bowel movements reported Genitourinary: No new onset incontinence Musculoskeletal: Generalized joint pain, low back pain Psychiatric: [Normal mood/affect] Neurological: [Denies weakness in extremities], [denies balance issues] Objective:: Physical Exam: General: Alert and oriented x3, no acute distress, pleasant and cooperative Lungs: Respirations even and unlabored, symmetrical chest expansion Eyes: PERRL Musculoskeletal: Flexion and extension of lumbar [spine] somewhat guarded secondary to pain, [antalgic gait noted] Neurological: Speech clear, no gross sensory deficit ORT score updated with low risk Assessment:: Degenerative disc disease of lumbar spine with lumbar radiculopathy symptoms, lumbar spondylosis, lumbar facet arthropathy, restless leg syndrome, right leg pain, generalized joint pain Plan:: Patient continues to do well with her current medication regimen. I will refill her ropinirole 0.5 mg at bedtime and provide a 3-month supply of this medication. Patient will return to clinic in 3 months for reevaluation of symptoms, medication refill and follow-up. Patient has been instructed to contact the clinic with any concerns before the next appointment. Dr. Mobley has reviewed this note and agrees with this plan of care. This note was dictated using voice recognition software and make contain errors or omissions. [facility] Disclaimer: The information contained in this section may have been updated after the patient was seen, as this information can be updated by other users. Social History Smoking Status: Never smoker alcohol intake: never current occupational status: other Travel in the last 8 weeks: None household members: spouse housing: house current occupational exposures/hazards: No caffeine: Yes
[2022-09-18 08:39] VITALS: BP 130/67; PULSE 95; RESP 18; O2SAT 97; BMI 32.9
== END | disposition home or self-care (01) ==
PROVIDERS: PCP Internal Medicine Adolescent Medicine; Visit Provider Nurse Practitioner Family
DX: M51.16 Intervertebral disc disorders with radiculopathy, lumbar region (principal); M47.26 Other spondylosis with radiculopathy, lumbar region; G25.81 Restless legs syndrome; M79.604 Pain in right leg; M25.50 Pain in unspecified joint
CPT/HCPCS: 99212; G0463

== ENCOUNTER → 2022-12-18 09:09 | Outpatient (POV) | payer MEDICARE, OTHER, SELFPAY ==
--- NOTE | 2022-12-18 10:03 | EXP.PAIN.SOA ---
[facility] Pain Management SOAP Note Subjective:: Patient is a pleasant 72-year-old female who presents today for 3-month follow-up. We are currently treating the patient for degenerative disc disease of the lumbar spine with lumbar radiculopathy symptoms, lumbar spondylosis, lumbar facet arthropathy, restless leg syndrome, right knee pain, generalized joint pain. Today she rates her pain a 4 out of 10. Patient states that approximately 3 weeks ago she did have her right knee replaced and is doing well with this. Patient states that she has been having some increased restless leg syndromes but thinks it is related to being in bed more due to her operation. Patient is currently managed with ropinirole 0.5 mg at bedtime from our office. Patient has also been prescribed oxycodone 5 mg and tramadol 50 mg from her orthopedic doctor following her procedure. She states these did help and she has now resumed her regular pain medication of [place] 7.5 mg twice a day from Dr. Carrillo's office. Patient denies any side effects from these medications. She does continue to use a cane for additional ambulation. Patient is prescribed compounding cream. She does state that she has been doing physical therapy at home and she will start PT here at the hospital on . Her Bruce is [id number]. Its been reviewed and appropriate. Review of Systems: General: No recent weight changes, no fever, no sleep disturbances Respiratory: No cough, no shortness of air, no recurring pulmonary infections Cardiovascular/peripheral vascular: No chest pain, no palpitations, no edema, no shortness of breath Gastrointestinal: No new onset incontinence, normal bowel movements reported Genitourinary: No new onset incontinence Musculoskeletal: Low back and leg pain Psychiatric: [Normal mood/affect] Neurological: [Denies weakness in extremities], [denies balance issues] Objective:: Physical Exam: General: Alert and oriented x3, no acute distress, pleasant and cooperative Lungs: Respirations even and unlabored, symmetrical chest expansion Eyes: PERRL Musculoskeletal: Flexion and extension of lumbar [spine] somewhat guarded secondary to pain, [antalgic gait noted] Neurological: Speech clear, no gross sensory deficit Assessment:: Degenerative disc disease of the lumbar spine with lumbar radiculopathy symptoms, lumbar spondylosis, lumbar facet arthropathy, restless leg syndrome, right knee pain, generalized joint pain Plan:: I will refill the patient's ropinirole and change it to 1 mg twice daily and provide a 3-month supply of this medication. Patient will return to clinic in 3 months for reevaluation of symptoms, medication refill and follow-up. Patient has been instructed to contact the clinic with any concerns before the next appointment. Dr. Mobley has reviewed this note and agrees with this plan of care. This note was dictated using voice recognition software and make contain errors or omissions. [facility] Disclaimer: The information contained in this section may have been updated after the patient was seen, as this information can be updated by other users. Social History Smoking Status: Never smoker alcohol intake: never current occupational status: retired Travel in the last 8 weeks: None household members: spouse housing: house current occupational exposures/hazards: No caffeine: Yes
[2022-12-18 10:47] VITALS: BP 118/70; PULSE 95; RESP 18; O2SAT 97; BMI 32.8
== END | disposition home or self-care (01) ==
PROVIDERS: PCP Internal Medicine Adolescent Medicine; Visit Provider Nurse Practitioner Family
DX: M51.16 Intervertebral disc disorders with radiculopathy, lumbar region (principal); M47.26 Other spondylosis with radiculopathy, lumbar region; G25.81 Restless legs syndrome; M25.561 Pain in right knee; M25.50 Pain in unspecified joint
CPT/HCPCS: 99212; G0463

== ENCOUNTER → 2022-12-21 12:25 | Outpatient (CLI) | payer MEDICARE, OTHER, SELFPAY ==
[2022-12-21 13:14] LABS: Erythrocyte Sedimentation Rate 12 mm/hr (0-30)
[2022-12-21 13:16] LABS: C-Reactive Protein 35.7 mg/L (0-4)
== END ==
PROVIDERS: PCP Internal Medicine Adolescent Medicine; Visit Provider Orthopaedic Surgery
DX: M25.561 Pain in right knee (principal); T84.53XA Infection and inflammatory reaction due to internal right knee prosthesis, initial encounter
CPT/HCPCS: 36415; 85651; 86140

== ENCOUNTER 2023-01-05 08:00 | Outpatient (RCR) | payer MEDICARE, OTHER, SELFPAY | END 2023-01-05 08:05 | disposition home or self-care (01) | LOC: PT 08:00 | PROVIDERS: PCP Internal Medicine Adolescent Medicine; Visit Provider Orthopaedic Surgery | DX: M25.561 Pain in right knee (principal); Z96.651 Presence of right artificial knee joint | CPT/HCPCS: 97010; 97014; 97110; 97163; 97530; G0283 ==

== ENCOUNTER → 2023-03-23 09:58 | Outpatient (POV) | payer MEDICARE, OTHER, SELFPAY ==
[2023-03-23 10:26] VITALS: BP 116/78; PULSE 94; RESP 18; O2SAT 95; BMI 32.4
--- NOTE | 2023-03-23 10:38 | EXP.PAIN.SOA ---
[facility] Pain Management SOAP Note Subjective:: This patient is a pleasant 72-year-old female that comes our clinic today for follow-up regarding medical management. We currently treating the patient for degenerative disc lumbar spine multilevels. Lumbar radiculopathy. Lumbar spondylosis. Multilevel lumbar facet arthropathy. Restless leg syndrome. Today she rates her pain 6/10. Patient states her restless leg is continuing. Specifically nightly. She continues taking ropinirole 1 mg twice daily. She states the medication does help to some degree. However some nights she has increased restless leg. Patient also taking hydrocodone 7.5 mg 1 p.o. twice daily from Dr. Hernandez. Patient's Bruce #[id number] has been reviewed and appropriate. Objective:: Patient is awake alert [place] x3. In no acute distress. Flex tension lumbar spine somewhat guarded secondary to pain. Deep tendon reflexes upper and lower extremities normal. Motor strength upper and lower extremities normal. There is no gross sensory deficit. Gait is normal. Assessment:: Degenerative disc lumbar spine multilevels. Lumbar radiculopathy. Lumbar spondylosis. Multilevel lumbar facet arthropathy. Plan:: Patient had a series of lumbar medial branch blocks/facet injections with subsequent radiofrequency ablation of the same levels in the fall 2021. We discussed repeating these procedures. Patient states she will let us know when she is ready for that. She will return in 2 months [facility] Disclaimer: The information contained in this section may have been updated after the patient was seen, as this information can be updated by other users. Social History Smoking Status: Never smoker alcohol intake: never substance use type: denies use current occupational status: retired Travel in the last 8 weeks: None household members: spouse housing: house current occupational exposures/hazards: No caffeine: Yes
== END | disposition home or self-care (01) ==
PROVIDERS: PCP Internal Medicine Adolescent Medicine; Visit Provider Nurse Anesthetist, Certified Registered
DX: M51.16 Intervertebral disc disorders with radiculopathy, lumbar region (principal); M47.26 Other spondylosis with radiculopathy, lumbar region; G25.81 Restless legs syndrome
CPT/HCPCS: 99212; G0463

== ENCOUNTER → 2023-05-07 09:25 | Outpatient (CLI) | payer MEDICARE, OTHER, SELFPAY ==
[2023-05-07 09:59] LABS: Basophils % 0.5 % (0.1-2.0); Eosinophils # 0.2 K/mm3 (0.0-0.4); Eosinophils % 4.8 % (0.1-12.0); Hematocrit 39.4 % (37.0-47.0); Lymphocytes # 1.9 K/mm3 (0.7-4.5); Lymphocytes % 37.3 % (10-50); Mean Corpuscular Hemoglobin 29.4 pg (27.0-31.2); Mean Corpuscular Volume 88.9 fl (81-99); Mean Platelet Volume 8.3 fl (7.4-10.4); Monocytes # 0.3 K/mm3 (0.1-1.0); Monocytes % 5.9 % (1.7-9.3); Neutrophils # 2.6 K/mm3 (1.8-7.8); Neutrophils % 51.5 % (37.0-80.0); Platelet Count 213 K/mm3 (142-424); Red Blood Count 4.43 M/mm3 (4.20-5.40); Red Cell Distribution Width 14.7 % (11.5-17.5)
[2023-05-07 10:50] LABS: Chloride 104 mmol/L (98-107); Sodium 136 mmol/L (136-145)
[2023-05-07 10:51] LABS: Potassium 4.4 mmoL/L (3.5-5.1)
[2023-05-07 10:53] LABS: Alanine Aminotransferase 30 U/L (12-78); Albumin Level 3.8 g/dl (3.5-5.0); Albumin/Globulin Ratio 1.5 (1.1-1.8); Alkaline Phosphatase 60 U/L (38-126); Anion Gap 8.4 mEq/L (5-15); Aspartate Amino Transferase 31 U/L (14-36); Bilirubin,Total 0.6 mg/dl (0.2-1.3); Blood Urea Nitrogen 17 mg/dl (7-17); Carbon Dioxide 28 mmol/L (22.0-30.0); Cholesterol 235 mg/dl (140-200); Estimated Glomerular Filt Rate 98 ml/min (>60); GFR (African American) 119 ML/MIN (>60); Globulin 2.5 g/dL (1.3-3.2); Total Protein,Serum 6.3 g/dl (6.3-8.2); Triglycerides 158 mg/dl (30-150); VLDL Cholesterol 32 mg/dL (0-40)
[2023-05-07 10:54] LABS: Calcium 8.8 mg/dl (8.4-10.2); Chol/HDL Ratio 4.1 (1-3.5); Glucose 139 mg/dl (74-100); HDL Cholesterol 57 mg/dl (40-60)
[2023-05-07 11:04] LABS: Direct LDL Cholesterol 137.74 mg/dL (100-129)
[2023-05-07 11:16] LABS: Hemoglobin A1C 6.7 % (4.0-6.0)
== END ==
PROVIDERS: PCP Internal Medicine Adolescent Medicine; Visit Provider Internal Medicine Adolescent Medicine
DX: E11.9 Type 2 diabetes mellitus without complications (principal); E78.5 Hyperlipidemia, unspecified; M47.816 Spondylosis without myelopathy or radiculopathy, lumbar region; Z79.84 Long term (current) use of oral hypoglycemic drugs
CPT/HCPCS: 36415; 80053; 80061; 83036; 85025

== ENCOUNTER → 2023-05-28 10:44 | Outpatient (POV) | payer MEDICARE, OTHER, SELFPAY ==
--- OUTSIDE RECORDS SUMMARY | 2023-05-28 10:47 | XMS_ITS ---
Author Name Unknown Address [address] [place] [address] Phone Organization [facility] Address [address] [place] [address] Phone Care Team Providers Care Box Blank Machine Feeder Name Role Phone MARGARET TONY MD Unavailable [phone] Antwon Moody DPM Unavailable [phone] Problems Includes: Active, inactive, and resolved Problems All Visits Onset Date Resolved Date Provider Condition S tatus Joint Pain in Both Knees 10/19/2022 Vaishali Mohan PACecileC Active Plan of Treatment Pending Tests Order Diagnosis Results Due Ordering P romichaelder Procedure/Tests EMG 08/23/22 Logan newton MD Future Appointments Date Time Location Provi maximo Follow Up 12/04/2023 9:15AM [facility] Eber Larry MD Instructions to patient Lose weight Last Documented On 3 8:57AM ; [facility] Lose weight Last Documented On 3 12:57PM ; [facility] Lose weight
--- OUTSIDE RECORDS SUMMARY | 2023-05-28 10:47 | XMS_ITS ---
Care Plan - [facility] Created on: May 28, 2023 Lila Lockhart : 1950 Sex: Female Author Name Unknown Address [address] [place] [address] Phone Organization [facility] Address [address] [place] [address] Phone Care Team Providers Care Sole Buffer Name Role Phone MARGARET TONY MD Unavailable [phone] Antwon Moody DPM Unavailable [phone]
--- OUTSIDE RECORDS SUMMARY | 2023-05-28 10:48 | XMS_ITS | Clinical Summary ---
Author Name Unknown Address [address] [address] Phone Organization [facility] Address [address] [place] [address] Phone Care Team Providers Care Merchandise Flow Associate Name Role Phone MARGARET TONY MD Unavailable [phone] Antwon Moody DPM Unavailable [phone] Reason for Visit and Chief Complaint The Chief Complaint is: Right knee pain Problems Includes: Problems addressed during this encounter and other active Problems All Visits Onset Date Resolved Date Provider Condition S tatus Joint Pain in Both Knees 10/19/2022 Vaishali Mohan PA-C Active Plan of Treatment Fall Risk Assessment: This patient has been identified as a fall risk. Balance/gait along with postural blood pressure, vision and home fall hazards have been assessed. Medications have been reviewed, and recommendations made with regard to contributing factors for future falls. Plan of care: Consideration of vitamin D supplementation along with balance and strength training with consideration for formal physical therapy has been discussed with the patient. Right knee: After obtaining verbal consent, the risks of the procedure were discussed with the patient. These include reaction to any injection of medication and infection. Procedure: The the skin around the superior-lateral aspect of the patella was prepped with Betadine. Approximately 1 fingerbreadth lateral and 1 fingerbreadth inferior to the superior lateral edge of the patella, the skin was frozen with ethyl chloride spray and then infiltrated with 1% lidocaine. The infiltration went from skin to subcutaneous tissues down to capsule at this site. After reprepping with Betadine, we
--- OUTSIDE RECORDS SUMMARY | 2023-05-28 10:48 | XMS_ITS | Clinical Summary ---
Author Name Unknown Address [address] [place] [address] Phone Organization [facility] , [facility] Address [address] [place] [address] Phone Care Team Providers Care Programming Equipment Operator Name Role Phone MARGARET TONY MD Unavailable [phone] Antwon Moody DPM Unavailable [phone] Reason for Visit and Chief Complaint The Chief Complaint is: 6wk FU Right TKA Problems Includes: Problems addressed during this encounter and other active Problems All Visits Onset Date Resolved Date Provider Condition S tatus Joint Pain in Both Knees 10/19/2022 Vaishali Mohan PAJeff Active Plan of Treatment Fall Risk Assessment: [...] therapy has been discussed with the patient. - Last Documented On 04/06/2023 3:06PM ; [facility], [facility] Future Appointments Date Time Location Provi maximo Follow Up 12/04/2023 9:15AM [facility] C Eber Larry MD Instructions to patient Lose weight Last Documented On 8:57AM ; [facility]
--- OUTSIDE RECORDS SUMMARY | 2023-05-28 10:48 | XMS_ITS | Clinical Summary ---
Author Name Unknown Address [address] [place] [address] Phone Organization [facility] , [facility] Address [address] [place] [address] Phone Care Team Providers Care Ordnance Engineering Technician Name Role Phone MARGARET TONY MD Unavailable [phone] Antwon Moody DPM Unavailable [phone] Reason for Visit and Chief Complaint [Patient Encounter] Problems Includes: Problems addressed during this encounter and other active Problems All Visits Onset Date Resolved Date Provider Condition S tatus Joint Pain in Both Knees 10/19/2022 Vaishali Mohan PA-C Active Plan of Treatment Future Appointments Date Time Location Provi maximo Follow Up 12/04/2023 9:15AM [facility] PS C Eber Laryr MD Assessments Includes: Assessments from this encounter No Assessments Recorded Medical Equipment - Implanted Devices Includes: Current Devices No Medical Equipment Recorded Medications Includes: Medications discussed during this encounter and other current Medications Current Medications (continue as prescribed) EQ Mucus Relief DM 20-400 MG/20ML Oral Liquid 11/08/19 Provider: Diagnosis: Potassium 99 MG Oral Tablet 11/07/2022 Provider:
--- OUTSIDE RECORDS SUMMARY | 2023-05-28 10:48 | XMS_ITS | Clinical Summary ---
Author Name Unknown Address [address] [place] [address] Phone Organization [facility] , [facility] Address [address] [place] [address] Phone Care Team Providers Care Radio Interference Expert Name Role Phone MARGARET TONY MD Unavailable [phone] Antwon Moody DPM Unavailable [phone] Reason for Visit and Chief Complaint [Patient Encounter] Problems Includes: Problems addressed during this encounter and other active Problems All Visits Onset Date Resolved Date Provider Condition S tatus Joint Pain in Both Knees 10/19/2022 Vaishali Mohan PA-C Active Plan of Treatment Future Appointments Date Time Location Provi maximo Follow Up 12/04/2023 9:15AM [facility] PS C Eber Larry MD Assessments Includes: Assessments from this encounter No Assessments Recorded Medical Equipment - Implanted Devices Includes: Current Devices No Medical Equipment Recorded Medications Includes: Medications discussed during this encounter and other current Medications Current Medications (continue as prescribed) EQ Mucus Relief DM 20-400 MG/20ML Oral Liquid 11/08/19 Provider: Diagnosis: Potassium 99 MG Oral Tablet 11/07/2022 Provider:
--- OUTSIDE RECORDS SUMMARY | 2023-05-28 10:48 | XMS_ITS | Patient Health Record ---
Author Name Unknown Organization [facility] Address [address] [place] [address] Care Team Providers Care Hall Tender Name Role Phone Misael Edwards Primary Care Provider [phone] Shaneka Mariee Unavailable [phone] ALLERGIES Allergen (clinical drug ingredient) Drug/Non Drug Allergy documented on EMR Reaction Allergy Type Onset Date Status morphine Morphine (uncoded) stopped her heart Allergy Active statins (uncoded) myalgias Allergy Ac tive RESULTS Component Value Reference Range Notes M-Complete Blood Count Auto Diff Reviewed date:05/08/2023 09:10:34 AM Interpretation: Performing Lab: Notes/Report: WBC 5.0 4.8-10.8 K/mm3 RBC 4.43 4.20-5.40 M/mm3 HGB 13.0 12.2-16.2 g/dL HCT 39.4 37.0-47.0 % MCV 88.9 81-99 fl MCH 29.4 27.0-31.2 pg MCHC 33.0 31.8-35.4 g/dL RDW 14.7 11.5-17.5 % PLT 213 142-424 K/mm3 MPV 8.3 7.4-10.4 fl NE% 51.5 37.0-80.0 % LY% 37.3 10-50 % MO% 5.9 1.7-9.3 % EO% 4.8 0.1-12.0 % BA% 0.5 0.1-2.0 % NE# 2.6 1.8-7.8
--- OUTSIDE RECORDS SUMMARY | 2023-05-28 10:48 | XMS_ITS | Clinical Summary ---
Author Name Unknown Address [address] [place] [address] Phone Organization [facility] , [facility] Address [address] [place] [address] Phone Care Team Providers Care Communications Manager Name Role Phone MARGARET TONY MD Unavailable [phone] Antwon Moody DPM Unavailable [phone] Reason for Visit and Chief Complaint The Chief Complaint is: Bilateral Knee pain Problems Includes: Problems addressed during this [...] the patient. - Last Documented On 04/06/2023 3:04PM ; [facility], [facility] Pending Tests Order Diagnosis Results Due Ordering P rovider Therapy - Physical Therapy Knee 12/15/22 Eber Larry MD Future Appointments Date Time Location Provi maximo Follow Up 12/04/2023 9:15AM [facility] C Eber Larry MD
--- NOTE | 2023-05-28 11:20 | EXP.PAIN.SOA ---
[facility] Pain Management SOAP Note Subjective:: Patient is a pleasant 72-year-old female who presents today for 2-month follow-up. We are currently treating the patient for degenerative disc disease of the lumbar spine with lumbar radiculopathy symptoms, lumbar spondylosis, lumbar facet arthropathy, restless leg syndrome, right knee pain, generalized joint pain. Today she rates her pain a 6 out of 10. She does state that last week she had a fall onto a brick wall outside of her home. Patient states that she believes that she got tangled up in some trailing hall. Patient did hit along her right side including her face, right breast/ribs and back area. Patient does state that she does not think that she had any significant fractures or injury. She did go to Dr. Edwards's office for evaluation and that he did prescribe her 3 days worth of additional pain medication. Patient states that he did also offer additional imaging however she declined this. Patient does state that she feels like her mid back pain and tenderness is more related to the fall and that it is slowly getting better. She does state that she notices when she coughs that her entire right side increases in pain. She also states that she has been having some dizzy spells. Patient states when she was years ago she did have some of the symptoms at that time 2. Patient does state that she is just had a lot going on and that her just had his heart valve replaced last week. She states he does have significant health history of kidney cancer with only 1 kidney and diabetes and so they have had a lot going on with that. Patient is currently managed with ropinirole 0.5 mg at bedtime from our office and [place] 7.5 mg twice a day from Dr. Edwards's office. Patient denies any side effects from these medications. She does continue to use a cane for additional ambulation. Patient is prescribed compounding cream. She does state that she has been doing physical therapy at home. Her Bruce has been reviewed and appropriate. Review of Systems: General: No recent weight changes, no fever, no sleep disturbances Respiratory: No cough, no shortness of air, no recurring pulmonary infections Cardiovascular/peripheral vascular: No chest pain, no palpitations, no edema, no shortness of breath Gastrointestinal: No new onset incontinence, normal bowel movements reported Genitourinary: No new onset incontinence Musculoskeletal: Mid back pain right-sided, right rib pain Psychiatric: [Normal mood/affect] Neurological: [Denies weakness in extremities], [denies balance issues] Objective:: Physical Exam: General: Alert and oriented x3, no acute distress, pleasant and cooperative Lungs: Respirations even and unlabored, symmetrical chest expansion Eyes: PERRL Musculoskeletal: Flexion and extension of thoracic [spine] somewhat guarded secondary to pain, [antalgic gait noted] point tenderness noted along right thoracic paraspinous muscles Neurological: Speech clear, no gross sensory deficit Assessment:: Degenerative disc disease of lumbar spine with lumbar radiculopathy symptoms, lumbar facet arthropathy, lumbar spondylosis, myofascial pain of right thoracic paraspinous muscles related to recent fall Plan:: I have discussed with the patient in future she may benefit from trigger point injections along her right thoracic paraspinous muscles where she had point tenderness. I have also counseled the patient to Dr. Dr. Edwards's office regarding her dizzy spells that it possibly could be orthostatic hypotension. I have also counseled her that it may be beneficial if this does not improve and is not related to her blood pressure that she see an ENT doctor in the future. Patient will follow-up in 1 month for reevaluation of symptoms and plan of care. I have counseled her to contact our office if she decides she wants additional imaging or the injections before now on her next visit. Patient has been instructed to contact
[2023-05-28 11:59] VITALS: BP 138/63; PULSE 93; RESP 18; O2SAT 96; BMI 34.0
== END ==
PROVIDERS: PCP Internal Medicine Adolescent Medicine; Visit Provider Nurse Practitioner Family
DX: M51.16 Intervertebral disc disorders with radiculopathy, lumbar region (principal); M47.26 Other spondylosis with radiculopathy, lumbar region; M79.18 Myalgia, other site; W01.198A Fall on same level from slipping, tripping and stumbling with subsequent striking against other object, initial encounter
CPT/HCPCS: 99212; G0463

== ENCOUNTER → 2023-06-12 11:22 | Outpatient (CLI) | payer MEDICARE, OTHER, SELFPAY ==
[2023-06-12 12:59] LABS: Microalbumin/Creatinine Ratio 8.5
[2023-06-12 13:09] LABS: Creatinine,Urine Random 82 mg/dL (Not Estab.)
[2023-06-12 13:22] LABS: Thyroid Stimulating Hormone 2.02 uIU/mL (0.465-4.68)
== END ==
PROVIDERS: PCP Internal Medicine Adolescent Medicine; Visit Provider Internal Medicine Endocrinology, Diabetes & Metabolism
DX: E11.65 Type 2 diabetes mellitus with hyperglycemia (principal); Z79.84 Long term (current) use of oral hypoglycemic drugs
CPT/HCPCS: 36415; 82043; 82570; 84443

== ENCOUNTER → 2023-06-25 09:20 | Outpatient (POV) | payer MEDICARE, OTHER, SELFPAY ==
--- NOTE | 2023-06-25 09:29 | EXP.PAIN.SOA ---
[facility] Pain Management SOAP Note Subjective:: Patient is a pleasant 72-year-old female who presents today for 1 month follow-up. We are currently treating the patient for degenerative disc disease of the lumbar spine with lumbar radiculopathy symptoms, lumbar spondylosis, lumbar facet arthropathy, restless leg syndrome, right knee pain, generalized joint pain. Today she rates her pain a out of 10. Patient denies any new injury or trauma from her last visit. At the last appointment she was experiencing episodes of increased dizziness. She states this is continued. She denies any new or worsening symptoms. She states that she still continues to have its and that it is frequently getting up and down but can also be when she just rolls over in bed. She is going to Dr. Edwards's office today for follow-up for her and states that she is going to discuss with him her symptoms of dizziness. Overall since her last visit she states the soreness from her previous fall is much better. She also states since her knee surgery she feels like she is walking straighter and so she is not causing additional strain on her back which was aggravating her other symptoms. She is currently managed with ropinirole 1 mg twice daily and compounded cream from our office and [place] 7.5 mg twice a day from Dr. Edwards's office. Patient denies any side effects from these medications. Her Bruce has been reviewed and appropriate. Review of Systems: General: No recent weight changes, no fever, no sleep disturbances Respiratory: No cough, no shortness of air, no recurring pulmonary infections Cardiovascular/peripheral vascular: No chest pain, no palpitations, no edema, no shortness of breath Gastrointestinal: No new onset incontinence, normal bowel movements reported Genitourinary: No new onset incontinence Musculoskeletal: Low back pain Psychiatric: [Normal mood/affect] Neurological: [Denies weakness in extremities], [denies balance issues] Objective:: Physical Exam: General: Alert and oriented x3, no acute distress, pleasant and cooperative Lungs: Respirations even and unlabored, symmetrical chest expansion Eyes: PERRL Musculoskeletal: Flexion and extension of lumbar [spine] somewhat guarded secondary to pain, [antalgic gait noted] Neurological: Speech clear, no gross sensory deficit Assessment:: Degenerative disc disease of lumbar spine with lumbar radiculopathy symptoms, lumbar spondylosis, lumbar facet arthropathy, restless leg syndrome, right knee pain, generalized joint pain Plan:: Patient is doing well overall at today's visit. I have reviewed over again her symptoms of increased dizziness and she is to follow-up with Dr. Edwards's office regarding this finding. Patient did also mention some left eye soreness and I have counseled her if this continues to be an issue that I highly recommend she make a follow-up appointment with her metal burrer at . I will refill the patient's ropinirole 1mg twice daily and provide a 2-month supply of this medication. Patient will return to clinic in 2 months for reevaluation of symptoms and plan of care. Patient has been instructed to contact the clinic with any concerns before the next appointment. Dr. Mobley has reviewed this note and agrees with this plan of care. This note was dictated using voice recognition software and make contain errors or omissions. [facility] Disclaimer: The information contained in this section may have been updated after the patient was seen, as this information can be updated by other users. Social History (Updated 03/23/23 @ 10:41 by Nito Peguero CRNA) Smoking Status: Never smoker alcohol intake: never substance use type: denies use current occupational status: retired Travel in the last 8 weeks: None household members: spouse housing: house current occupational exposures/hazards: No caffeine: Yes
[2023-06-25 09:51] VITALS: BP 137/83; PULSE 84; RESP 18; O2SAT 95; BMI 34.0
== END | disposition home or self-care (01) ==
PROVIDERS: PCP Internal Medicine Adolescent Medicine; Visit Provider Nurse Practitioner Family
DX: M51.16 Intervertebral disc disorders with radiculopathy, lumbar region (principal); M47.26 Other spondylosis with radiculopathy, lumbar region; G25.81 Restless legs syndrome; M25.561 Pain in right knee; M25.50 Pain in unspecified joint
CPT/HCPCS: 99212; G0463

== ENCOUNTER 2023-08-08 09:40 | Outpatient (CLI) | payer MEDICARE, OTHER, SELFPAY ==
[2023-08-08 10:44] LABS: Chloride 103 mmol/L (98-107); Potassium 5.1 mmoL/L (3.5-5.1); Sodium 137 mmol/L (136-145)
[2023-08-08 10:47] LABS: Alanine Aminotransferase 31 U/L (12-78); Albumin Level 4.1 g/dl (3.5-5.0); Albumin/Globulin Ratio 1.6 (1.1-1.8); Alkaline Phosphatase 67 U/L (38-126); Anion Gap 12.1 mEq/L (5-15); Aspartate Amino Transferase 31 U/L (14-36); Bilirubin,Total 0.6 mg/dl (0.2-1.3); Blood Urea Nitrogen 16 mg/dl (7-17); Carbon Dioxide 27 mmol/L (22.0-30.0); Cholesterol 250 mg/dl (140-200); Estimated Glomerular Filt Rate 82 ml/min (>60); GFR (African American) 100 ML/MIN (>60); Globulin 2.5 g/dL (1.3-3.2); Total Protein,Serum 6.6 g/dl (6.3-8.2); Triglycerides 171 mg/dl (30-150); VLDL Cholesterol 34 mg/dL (0-40)
[2023-08-08 10:48] LABS: Calcium 8.9 mg/dl (8.4-10.2); Chol/HDL Ratio 4.6 (1-3.5); Glucose 130 mg/dl (74-100); HDL Cholesterol 54 mg/dl (40-60)
[2023-08-08 10:49] LABS: Basophils # 0.1 K/mm3 (0-0.2); Basophils % 0.8 % (0.1-2.0); Eosinophils # 0.7 K/mm3 (0.0-0.4); Eosinophils % 9.2 % (0.1-12.0); Hematocrit 43.6 % (37.0-47.0); Hemoglobin 14.4 g/dL (12.2-16.2); Lymphocytes # 2.5 K/mm3 (0.7-4.5); Lymphocytes % 33.5 % (10-50); Mean Corpuscular HGB Conc 33.2 g/dL (31.8-35.4); Mean Corpuscular Hemoglobin 29.6 pg (27.0-31.2); Mean Corpuscular Volume 89.3 fl (81-99); Mean Platelet Volume 8.6 fl (7.4-10.4); Monocytes # 0.6 K/mm3 (0.1-1.0); Monocytes % 7.5 % (1.7-9.3); Neutrophils # 3.8 K/mm3 (1.8-7.8); Neutrophils % 49.8 % (37.0-80.0); Platelet Count 265 K/mm3 (142-424); Red Blood Count 4.88 M/mm3 (4.20-5.40); Red Cell Distribution Width 13.8 % (11.5-17.5); White Blood Count 7.5 K/mm3 (4.8-10.8)
[2023-08-08 13:22] LABS: Hemoglobin A1C 6.8 % (4.0-6.0)
[2023-08-08 16:28] LABS: Amphetamine/Metha Screen,Urine Negative ng/ml (<1000)
[2023-08-08 16:29] LABS: Barbiturates Screen,Urine Negative ng/ml (<200); Benzodiazepines Screen,Urine Negative ng/ml (<200)
[2023-08-08 16:30] LABS: Cannabinoid Screen,Urine Negative ng/ml (<50)
[2023-08-08 16:31] LABS: Cocaine Screen,Urine Negative ng/ml (<300); Methadone Screen,Urine Negative ng/ml (<300)
[2023-08-08 16:32] LABS: Opiate Screen,Urine Positive ng/ml (<300)
[2023-08-08 16:33] LABS: Phencyclidine Screen,Urine Negative ng/ml (<25)
== END 2023-08-08 23:59 ==
LOC: LAB 09:41
PROVIDERS: PCP Internal Medicine Adolescent Medicine; Visit Provider Internal Medicine Adolescent Medicine
DX: R42 Dizziness and giddiness (principal); S09.90XS Unspecified injury of head, sequela; G89.4 Chronic pain syndrome; E11.69 Type 2 diabetes mellitus with other specified complication; E78.5 Hyperlipidemia, unspecified; Z79.84 Long term (current) use of oral hypoglycemic drugs; Z79.899 Other long term (current) drug therapy
CPT/HCPCS: 36415; 80053; 80061; 80307; 83036; 85025

== ENCOUNTER → 2023-08-23 09:28 | Outpatient (POV) | payer MEDICARE, OTHER, SELFPAY ==
--- NOTE | 2023-08-23 09:32 | A.OFFVIS_ITS ---
[facility] Pain Management SOAP Note Subjective:: Patient is a pleasant 72-year-old female who presents today for follow-up. We are currently treating the patient for degenerative disc disease of the lumbar spine with lumbar radiculopathy symptoms, lumbar spondylosis, lumbar facet arthropathy, restless leg syndrome, right knee pain, generalized joint pain. Today she rates her pain a 3 out of 10. Patient denies any new trauma or injury. She states that her low back is still continuing to do well following her knee replacement surgery. She does state that she will occasionally get pain into her low back with radiating symptoms down into her right legs but typically is occurring helps with this. Patient states she continues to have dizziness that is worse with sitting up in bed or laying to the left side. Patient does state that she is scheduled for a brain and CTA scan this coming week. Patient does also states she continues to have more going on related to her 's heart issues. Patient spouse does have significant comorbidities including kidney cancer, diabetes and Parkinson. She is currently managed with ropinirole 1 mg twice daily and compounded cream from our office and [place] 7.5 mg twice a day from Dr. Edwards's office. Patient denies any side effects from these medications. She states that she does not think she needs any refills on her ropinirole however does feel like she needs some on her compounded cream. Her Bruce has been reviewed and appropriate. Review of Systems: General: No recent weight changes, no fever, no sleep disturbances Respiratory: No cough, no shortness of air, no recurring pulmonary infections Cardiovascular/peripheral vascular: No chest pain, no palpitations, no edema, no shortness of breath Gastrointestinal: No new onset incontinence, normal bowel movements reported Genitourinary: No new onset incontinence Musculoskeletal: Low back pain Psychiatric: [Normal mood/affect] Neurological: [Denies weakness in extremities], [denies balance issues] Objective:: Physical Exam: General: Alert and oriented x3, no acute distress, pleasant and cooperative Lungs: Respirations even and unlabored, symmetrical chest expansion Eyes: PERRL Musculoskeletal: Flexion and extension of lumbar [spine] somewhat guarded secondary to pain, [antalgic gait noted] Neurological: Speech clear, no gross sensory deficit Assessment:: Degenerative disc disease of lumbar spine with lumbar radiculopathy symptoms, lumbar spondylosis, lumbar facet arthropathy, restless leg syndrome, right knee pain, generalized joint pain Plan:: Order additional refills of her compounded cream. I have discussed with the patient if she continues to have worsening pain regarding her low back and right leg that we can try some injection therapy. We will follow-up with this at a future visit. Patient will return to clinic in 3 months for reevaluation of symptoms and plan of care. Patient has been instructed to contact the clinic with any concerns before the next appointment. Dr. Mobley has reviewed this note and agrees with this plan of care. This note was dictated using voice recognition software and make contain errors or omissions. [facility] Disclaimer: The information contained in this section may have been updated after the patient was seen, as this information can be updated by other users. Social History (Updated 03/23/23 @ 10:41 by Nito Peguero CRNA) Smoking Status: Never smoker alcohol intake: never substance use type: denies use current occupational status: retired Travel in the last 8 weeks: None household members: spouse housing: house current occupational exposures/hazards: No caffeine: Yes
[2023-08-23 09:46] VITALS: BP 129/70; PULSE 95; RESP 18; O2SAT 94; BMI 34.3
== END ==
LOC: SC.PAIN 09:29
PROVIDERS: PCP Internal Medicine Adolescent Medicine; Visit Provider Nurse Practitioner Family
DX: M51.16 Intervertebral disc disorders with radiculopathy, lumbar region (principal); M47.26 Other spondylosis with radiculopathy, lumbar region; G25.81 Restless legs syndrome; M25.561 Pain in right knee; M25.50 Pain in unspecified joint
CPT/HCPCS: 99212; G0463

== ENCOUNTER 2023-08-27 08:29 | Outpatient (CLI) | payer MEDICARE, OTHER, SELFPAY ==
--- NOTE | 2023-08-27 08:32 | MR_ITS ---
FINAL REPORT CLINICAL HISTORY: INJURY OF HEAD. DIZZINESS FINDINGS: Multiplanar MR imaging of the brain was performed without contrast. Mild to moderate chronic ischemic/gliotic changes are noted. There is no evidence of intracranial hemorrhage or mass. The ventricular size is normal. There is no evidence of shift of the midline structures. No abnormal extra-axial fluid collection is identified. The posterior fossa and brainstem have an unremarkable appearance. No area of abnormal restricted diffusion is identified. Normal major vessel vascular flow voids are seen. Mild mucosal thickening is noted in the sinuses. IMPRESSION: Unremarkable brain with no acute intracranial abnormality. Mild to moderate chronic ischemic/gliotic changes. Authenticated and ERN
--- NOTE | 2023-08-27 09:38 | CT_ITS ---
FINAL REPORT CLINICAL HISTORY: .DIZZINESS FINDINGS: CTA NECK Thin section axial CT with contrast with multiplanar reconstruction. NASCET criteria and technique was utilized during interpretation. This study was performed with techniques to keep radiation doses as low as reasonably achievable (ALARA). Individualized dose reduction techniques using automated exposure control or adjustment of mA and/or kV according to the patient's size were employed. Aortic arch: There is mild stenosis of the proximal left subclavian artery measuring less than 30%. Arch shows no significant narrowing. Great vessel origins are widely patent . Right carotid: There is calcified plaque at the right carotid bifurcation. No significant stenosis is seen of the cervical common or internal carotid artery . Left carotid: No significant stenosis is seen of the cervical common or internal carotid artery . Vertebrals: Left vertebral artery is dominant. No significant stenosis is present . There is thickening of the upper thoracic esophagus which is nonspecific but may be inflammatory. Consider upper endoscopy. Mucosal thickening is noted of multiple sinuses. IMPRESSION: No significant stenosis or occlusion. Reviewed, Interpreted and Dictated by Kyree Vasquez III, MD Transcribed by Joselin Mcgee Authenticated and . [facility]
[2023-08-27] MEDS: 0.9 % SODIUM CHLORIDE 50 ML VIAL IV (10:22)
[2023-08-27] MEDS: SODIUM CHLORIDE 0.9% 10ML SYR (RAD ONLY) 10 ML IV (10:22)
[2023-08-27] MEDS: IOPAMIDOL-370 (76%);100ML BOTTLE 100 ML IV (10:22)
== END 2023-08-27 23:59 ==
LOC: RAD 08:29
PROVIDERS: PCP Internal Medicine Adolescent Medicine; Visit Provider Internal Medicine Adolescent Medicine
DX: S09.90XS Unspecified injury of head, sequela (principal); R42 Dizziness and giddiness; Y99.9 Unspecified external cause status
CPT/HCPCS: 70498; 70551; Q9967

== ENCOUNTER 2023-12-03 10:11 | Outpatient (POV) | payer MEDICARE, SELFPAY ==
[2023-12-03 10:27] VITALS: BP 117/66; PULSE 96; RESP 16; O2SAT 95; BMI 34.3
--- NOTE | 2023-12-03 11:13 | A.OFFVIS_ITS ---
[facility] Pain Management SOAP Note Subjective:: Patient is a pleasant 73-year-old female who presents today for follow-up. Today she rates her pain a 0 out of 10. Patient denies any new trauma or injury. She does state that although her back is doing overall well she is continuing to have worsening pain in her legs due to the restless leg. Patient is currently managed with ropinirole 1 mg twice a day from our office. She denies any side effects to this medication or her compounded cream. Patient does feel like she may need additional adjustment of the ropinirole due to the continued leg cramps throughout the day even. Patient has tried cyclobenzaprine in the past however feels like she is not getting any additional benefit from this medication. Patient is prescribed [place] from her primary care provider. Her Bruce has been reviewed and is appropriate. Review of Systems: General: No recent weight changes, no fever, no sleep disturbances Respiratory: No cough, no shortness of air, no recurring pulmonary infections Cardiovascular/peripheral vascular: No chest pain, no palpitations, no edema, no shortness of breath Gastrointestinal: No new onset incontinence, normal bowel movements reported Genitourinary: No new onset incontinence Musculoskeletal: Leg cramps Psychiatric: [Normal mood/affect] Neurological: [Denies weakness in extremities], [denies balance issues] Objective:: Physical Exam: General: Alert and oriented x3, no acute distress, pleasant and cooperative Lungs: Respirations even and unlabored, symmetrical chest expansion Eyes: PERRL Musculoskeletal: Flexion and extension of lumbar [spine] somewhat guarded secondary to pain, [antalgic gait noted] Neurological: Speech clear, no gross sensory deficit Assessment:: Degenerative disc disease of lumbar spine with lumbar radiculopathy symptoms, lumbar spondylosis, lumbar facet arthropathy, restless leg syndrome, right knee pain, generalized joint pain Plan:: I will change her ropinirole to 1 mg 3 times a day and also sending a new prescription of baclofen 5 mg 3 times daily. Patient has been counseled to discontinue her cyclobenzaprine This muscle relaxer. Patient will return to clinic in 1 month for reevaluation of symptoms and plan of care. Patient has been instructed to contact the clinic with any concerns before the next appointment. Dr. Mobley has reviewed this note and agrees with this plan of care. This note was dictated using voice recognition software and make contain errors or omissions. [facility] Disclaimer: The information contained in this section may have been updated after the patient was seen, as this information can be updated by other users. Social History (Updated 03/23/23 @ 10:41 by Nito Peguero CRNA) Smoking Status: Never smoker alcohol intake: never substance use type: denies use current occupational status: other Travel in the last 8 weeks: None household members: spouse housing: house current occupational exposures/hazards: No caffeine: Yes
== END 2023-12-03 23:59 | disposition home or self-care (01) ==
PROVIDERS: PCP Internal Medicine Adolescent Medicine; Visit Provider Nurse Practitioner Family
DX: M51.16 Intervertebral disc disorders with radiculopathy, lumbar region (principal); M47.26 Other spondylosis with radiculopathy, lumbar region; G25.81 Restless legs syndrome; M25.561 Pain in right knee; M25.50 Pain in unspecified joint
CPT/HCPCS: 99212; G0463

== ENCOUNTER 2023-12-17 09:45 | Outpatient (CLI) | payer MEDICARE, SELFPAY ==
[2023-12-17 11:03] LABS: Chol/HDL Ratio 3.2 (1-3.5); Cholesterol 259 mg/dl (140-200); HDL Cholesterol 80 mg/dl (40-60); Triglycerides 177 mg/dl (30-150); VLDL Cholesterol 35 mg/dL (0-40)
[2023-12-17 11:14] LABS: Direct LDL Cholesterol 147.14 mg/dL (100-129)
== END 2023-12-17 23:59 | disposition home or self-care (01) ==
LOC: LAB 09:49
PROVIDERS: PCP Internal Medicine Adolescent Medicine; Visit Provider Internal Medicine Endocrinology, Diabetes & Metabolism
DX: E11.65 Type 2 diabetes mellitus with hyperglycemia (principal)
CPT/HCPCS: 36415; 80061

== ENCOUNTER 2024-01-03 08:36 | Outpatient (POV) | payer MEDICARE, SELFPAY ==
[2024-01-03 08:44] VITALS: PULSE 96; RESP 16; O2SAT 97; BMI 35.2
--- NOTE | 2024-01-03 08:54 | A.OFFVIS_ITS ---
[facility] Pain Management SOAP Note Subjective:: Patient is a pleasant 73-year-old female who presents today for medication refill and follow-up. Today she rates her pain a 3 out of 10. Patient denies any new trauma or injury. Patient states she still has her chronic low back pain however she feels like this is really improved since having her knee replacement. Patient states that she feels like she walks better now. Patient does state that she is not even having to rely on her cane very often unless she is walking for long distances. Patient is currently managed with ropinirole 1 mg 3 times a day and was tried on baclofen instead of the Flexeril however she states that she felt like the Flexeril worked much better. Her Bruce has been reviewed and is appropriate. She is prescribed [place] from an outside provider. Review of Systems: General: No recent weight changes, no fever, no sleep disturbances Respiratory: No cough, no shortness of air, no recurring pulmonary infections Cardiovascular/peripheral vascular: No chest pain, no palpitations, no edema, no shortness of breath Gastrointestinal: No new onset incontinence, normal bowel movements reported Genitourinary: No new onset incontinence Musculoskeletal: Low back pain Psychiatric: [Normal mood/affect] Neurological: [Denies weakness in extremities], [denies balance issues] Objective:: Physical Exam: General: Alert and oriented x3, no acute distress, pleasant and cooperative Lungs: Respirations even and unlabored, symmetrical chest expansion Eyes: PERRL Musculoskeletal: Flexion and extension of lumbar [spine] somewhat guarded secondary to pain, [antalgic gait noted] Neurological: Speech clear, no gross sensory deficit Assessment:: Degenerative disc disease of lumbar spine with lumbar radiculopathy symptoms, lumbar spondylosis, lumbar facet arthropathy, restless leg syndrome, right knee pain, generalized joint pain Plan:: I will send a 3-month supply of her ropinirole and do the Flexeril 10 mg 3 times daily. Patient will return to clinic in 3 months for reevaluation of symptoms and plan of care. I did recommend the patient use her compounded cream on the area around her left thigh that seems to occasionally cause spasms. We will follow-up with this at her next visit. Patient has been instructed to contact the clinic with any concerns before the next appointment. Dr. Mobley has reviewed this note and agrees with this plan of care. This note was dictated using voice recognition software and make contain errors or omissions. [facility] Disclaimer: The information contained in this section may have been updated after the patient was seen, as this information can be updated by other users. Social History (Updated 03/23/23 @ 10:41 by Nito Peguero CRNA) Smoking Status: Never smoker alcohol intake: never substance use type: denies use current occupational status: retired Travel in the last 8 weeks: None household members: spouse housing: house current occupational exposures/hazards: No caffeine: Yes
== END 2024-01-03 23:59 | disposition home or self-care (01) ==
PROVIDERS: PCP Internal Medicine Adolescent Medicine; Visit Provider Nurse Practitioner Family
DX: M51.16 Intervertebral disc disorders with radiculopathy, lumbar region (principal); M47.26 Other spondylosis with radiculopathy, lumbar region; G25.81 Restless legs syndrome; M25.561 Pain in right knee; M25.50 Pain in unspecified joint
CPT/HCPCS: 99212; G0463

== ENCOUNTER 2024-03-06 11:30 | Outpatient (CLI) | payer MEDICARE, SELFPAY ==
--- NOTE | 2024-03-06 11:34 | XR_ITS ---
FINAL REPORT CLINICAL HISTORY: LEFT FOOT PAIN COMPARISON: None FINDINGS: LEFT FOOT Three views of the left foot demonstrate a sideplate and screws securing the proximal 5th metatarsal. There is no acute fracture or dislocation. There are mild hypertrophic changes of the 1st interphalangeal joint and 1st intertarsal phalangeal joint. A small plantar spur is noted. The soft tissues are unremarkable. IMPRESSION: Postoperative and degenerative changes without acute bony abnormality. Reviewed, Interpreted and Dictated by Jose Angel Rodriges MD Transcribed by Anai Hudson Authenticated and [facility]
== END 2024-03-06 23:59 | disposition home or self-care (01) ==
LOC: RAD 11:32
PROVIDERS: PCP Internal Medicine Adolescent Medicine; Visit Provider Nurse Practitioner Family
DX: M79.672 Pain in left foot (principal)
CPT/HCPCS: 73630

== ENCOUNTER 2024-04-03 08:37 | Outpatient (POV) | payer MEDICARE, SELFPAY ==
--- NOTE | 2024-04-03 08:58 | EXP.PAIN.SOA ---
[facility] Disclaimer: The information contained in this section may have been updated after the patient was seen, as this information can be updated by other users. Social History (Updated 03/23/23 @ 10:41 by Nito Peguero CRNA) Smoking Status: Never smoker alcohol intake: never substance use type: denies use current occupational status: retired Travel in the last 8 weeks: None household members: spouse housing: house current occupational exposures/hazards: No caffeine: Yes PM Subjective & Objective Subjective Subjective:: Patient is a pleasant 73-year-old female who presents today for 3-month follow-up. Today she rates her pain a 0 to a 1 out of 10. She denies any new trauma or injury. She does state that she has been having a lot of issues with her left big toe. She states she has been to her primary care and been on 2 doses of steroid and a dose of antibiotic. Patient states that they did do imaging and there was nothing fractured. Patient states that PCP just recently sent her in a medication for gout. Patient is managed with ropinirole 1 mg 3 times a day from our office along with Flexeril 10 mg 3 times a day and compounded cream. She denies any side effects from this medication. Patient states she does not think she needs any refills at this time. She is on [place] from an outside provider. Her Bruce has been reviewed and is appropriate. Review of Systems: General: No recent weight changes, no fever, no sleep disturbances Respiratory: No cough, no shortness of air, no recurring pulmonary infections Cardiovascular/peripheral vascular: No chest pain, no palpitations, no edema, no shortness of breath Gastrointestinal: No new onset incontinence, normal bowel movements reported Genitourinary: No new onset incontinence Musculoskeletal: Low back pain, left big toe pain Psychiatric: [Normal mood/affect] Neurological: [Denies weakness in extremities], [denies balance issues] Pain at rest (0-10 scale): 1 Objective Objective:: Physical Exam: General: Alert and oriented x3, no acute distress, pleasant and cooperative Lungs: Respirations even and unlabored, symmetrical chest expansion Eyes: PERRL Musculoskeletal: Flexion and extension of lumbar [spine] somewhat guarded secondary to pain, [antalgic gait noted] Neurological: Speech clear, no gross sensory deficit Has patient had previous pain injection?: No Conservative treatment options previously tried: Home exercise plan Length of treatment: Longer than 6 weeks Meds Home Medications and Allergies Home Medications ?Medication ?Instructions ?Recorded ?Confirmed ?Type ferrous sulfate 325 mg (65 mg 325 mg PO DAILY Supplement 11/26/17 01/03/24 History iron) tablet melatonin ER 10 mg-pyridoxine HCl 1 each PO HS Allergy symptoms 11/26/17 01/03/24 History (B6) 10 mg tab, immed-extend release ascorbic acid (vitamin C) 500 mg 500 mg PO DAILY Supplement 02/05/18 01/03/24 History capsule calcium-vitamin D3-vitamin K 500 1 each PO DAILY Supplement 02/05/18 01/03/24 History mg-1,000 unit-40 mcg chewable tablet cetirizine 10 mg capsule 10 mg PO DAILY ALLERGIES 02/05/18 01/03/24 History estradiol 0.5 mg tablet 0.1 mg PO DAILY HRT 02/05/18 01/03/24 History ezetimibe 10 mg tablet 10 mg PO DAILY High cholesterol 02/05/18 01/03/24 History gemfibrozil 600 mg tablet 600 mg PO BID UNKNOWN 02/05/18 01/03/24 History lisinopril 10 mg tablet 10 mg PO DAILY BLOOD PRESSURE 02/05/18 01/03/24 History magnesium 250 mg tablet 250 mg PO DAILY Supplement 02/05/18 01/03/24 History metformin 500 mg tablet 500 mg PO BID Diabetes 02/05/18 01/03/24 History potassium 99 mg tablet 99 mg PO DAILY Supplement 02/05/18 01/03/24 History celecoxib 200 mg capsule (Celebrex) 200 mg PO DAILY Pain 11/26/19 01/03/24 History hydrocodone 7.5 mg-acetaminophen 7.5 mg PO BID Pain 11/26/19 01/03/24 History 325 mg tablet baclofen 5 mg tablet 5 mg PO TID #90 tabs 12/03/23 01/03/24 Rx cyclobenzaprine 10 mg tablet 10 mg PO TID SPASMS #90 tabs 01/03/24 Rx ropinirole 1 mg tablet See Rx Instructions .Route 03/31/24 Rx .COMPLEX #90 tabs New Prescriptions to Start Prescriptions: Allergies Allergy/AdvReac Type Severity Reaction Status Date / Time morphine Allergy Severe STOPS HEART Verified 01/06/22 10:09 [id number]-IRJ-NzO Reductase Allergy Unknown SWELLING Verified 01/06/22 10:09 Inhibitor [[id number]-NTC-MDD REDUCTASE INHIBITOR] Assessment and Plan *Assessment and plan (1) Degenerative disc disease, lumbar: Status: Acute Category: Medical Code(s): M51.36 - Other intervertebral disc degeneration, lumbar region (2) Lumbar radiculopathy: Status: Acute Category: Medical Code(s): M54.16 - Radiculopathy, lumbar region Plan I did discuss with the patient to try her compounded cream on her big toe and see if this helps additionally. Patient will return to clinic in 6 months for reevaluation of symptoms and plan of care. Patient was counseled to call her office if she does need refills between now and her next visit. Patient has been instructed to contact the clinic with any concerns before the next appointment. Dr. Mobley has reviewed this note and agrees with this plan of care. This note was dictated using voice recognition software and make contain errors or omissions. All injections are used with Lidocaine or Bupivacaine and Depo Medrol.
[2024-04-03 10:06] VITALS: BP 146/53; PULSE 81; RESP 18; O2SAT 95; BMI 35.3
== END 2024-04-03 23:59 | disposition home or self-care (01) ==
LOC: SC.PAIN 08:38
PROVIDERS: PCP Internal Medicine Adolescent Medicine; Visit Provider Nurse Practitioner Family
DX: M51.16 Intervertebral disc disorders with radiculopathy, lumbar region (principal); Z79.899 Other long term (current) drug therapy
CPT/HCPCS: 99212; G0463

== ENCOUNTER 2024-10-01 08:31 | Outpatient (POV) | payer MEDICARE, SELFPAY ==
--- NOTE | 2024-10-01 08:41 | EXP.PAIN.SOA ---
[facility] Disclaimer: The information contained in this section may have been updated after the patient was seen, as this information can be updated by other users. Social History (Updated 03/23/23 @ 10:41 by Nito Peguero CRNA) Smoking Status: Never smoker alcohol intake: never substance use type: denies use current occupational status: retired Travel in the last 8 weeks: None household members: spouse housing: house current occupational exposures/hazards: No caffeine: Yes PM Subjective & Objective Subjective Subjective:: Patient is a pleasant 74-year-old female who presents today for 6-month follow-up. Today she rates her pain a 4 out of 10. She states over the winter she did have 2 falls related to this no. She states she does not feel like she did anything significant. Patient is managed with ropinirole 1 mg 3 times a day, Flexeril 10 mg 3 times a day and compounded cream from our office. She does state that this combination does seem to work really well for her. She does however state that from time to time she does take 1/4 tablet of each due to the worsening pain primarily at night. Patient states this has helped. Patient is asking if we can make some adjustments. She is on [place] from an outside provider. Her Bruce has been reviewed and is appropriate. Review of Systems: General: No recent weight changes, no fever, no sleep disturbances Respiratory: No cough, no shortness of air, no recurring pulmonary infections Cardiovascular/peripheral vascular: No chest pain, no palpitations, no edema, no shortness of breath Gastrointestinal: No new onset incontinence, normal bowel movements reported Genitourinary: No new onset incontinence Musculoskeletal: Low back pain Psychiatric: [Normal mood/affect] Neurological: [Denies weakness in extremities], [denies balance issues] Pain at rest (0-10 scale): 4 Objective Objective:: Physical Exam: General: Alert and oriented x3, no acute distress, pleasant and cooperative Lungs: Respirations even and unlabored, symmetrical chest expansion Eyes: PERRL Musculoskeletal: Flexion and extension of lumbar [spine] somewhat guarded secondary to pain, [antalgic gait noted] Neurological: Speech clear, no gross sensory deficit Has patient had previous pain injection?: No Conservative treatment options previously tried: Home exercise plan Length of treatment: Longer than 12 weeks and Prescription medications Length of treatment: Longer than 12 weeks Meds Home Medications and Allergies Home Medications ?Medication ?Instructions ?Recorded ?Confirmed ?Type ferrous sulfate 325 mg (65 mg 325 mg PO DAILY Supplement 11/26/17 04/03/24 History iron) tablet melatonin ER 10 mg-pyridoxine HCl 1 each PO HS Allergy symptoms 11/26/17 04/03/24 History (B6) 10 mg tab, immed-extend release ascorbic acid (vitamin C) 500 mg 500 mg PO DAILY Supplement 02/05/18 04/03/24 History capsule calcium 500 mg-vitamin D3 1,000 1 each PO DAILY Supplement 02/05/18 04/03/24 History unit-vitamin K 40 mcg chewable tablet cetirizine 10 mg capsule 10 mg PO DAILY ALLERGIES 02/05/18 04/03/24 History estradiol 0.5 mg tablet 0.1 mg PO DAILY HRT 02/05/18 04/03/24 History ezetimibe 10 mg tablet 10 mg PO DAILY High cholesterol 02/05/18 04/03/24 History gemfibrozil 600 mg tablet 600 mg PO BID UNKNOWN 02/05/18 04/03/24 History lisinopril 10 mg tablet 10 mg PO DAILY BLOOD PRESSURE 02/05/18 04/03/24 History magnesium 250 mg tablet 250 mg PO DAILY Supplement 02/05/18 04/03/24 History metformin 500 mg tablet 500 mg PO BID Diabetes 02/05/18 04/03/24 History potassium 99 mg tablet 99 mg PO DAILY Supplement 02/05/18 04/03/24 History celecoxib 200 mg capsule (Celebrex) 200 mg PO DAILY Pain 11/26/19 04/03/24 History hydrocodone 7.5 mg-acetaminophen 7.5 mg PO BID Pain 11/26/19 04/03/24 History 325 mg tablet baclofen 5 mg tablet 5 mg PO TID #90 tabs 12/03/23 04/03/24 Rx cyclobenzaprine 10 mg tablet 10 mg PO TID SPASMS #90 tabs 01/03/24 04/03/24 Rx ropinirole 1 mg tablet See Rx Instructions .Route 07/22/24 Rx .COMPLEX #90 tabs New Prescriptions to Start Prescriptions: Allergies Allergy/AdvReac Type Severity Reaction Status Date / Time morphine Allergy Severe STOPS HEART Verified 01/06/22 10:09 Ujlqjsi-WGB-NaK Reductase Allergy Unknown SWELLING Verified 01/06/22 10:09 Inhibitor (KSCSPJE-DHO-JZT REDUCTASE INHIBITOR) Assessment and Plan *Assessment and plan (1) Lumbar radiculopathy: Status: Acute Category: Medical Code(s): M54.16 - Radiculopathy, lumbar region (2) Degenerative disc disease, lumbar: Status: Acute Category: Medical Code(s): M51.369 - Other intervertebral disc degeneration, lumbar region without mention of lumbar back pain or lower extremity pain Plan I will refill her Flexeril and ropinirole and change them to 4 times each as needed and provide a 3-month supply of this medication. Patient is experiencing some pain and pressure in her upper thighs primarily on the left side but I would like to follow-up with her in a few months and see if this improves. Patient does state that Dr. Edwards does routine lab work and that she has not been told that she has had any abnormal findings. Patient does take magnesium as a daily supplement. Patient will return to clinic in 3 months. Patient has been instructed to contact the clinic with any concerns before the next appointment. Dr. Mobley has reviewed this note and agrees with this plan of care. This note was dictated using voice recognition software and make contain errors or omissions. All injections are used with Lidocaine, Bupivacaine and Depo Medrol. Occasionally urine drug screen is needed to verify patient's compliance with our office pain contract. This is ordered based off specific treatments related to chronic pain with the potential to abuse certain medications.
[2024-10-01 11:00] VITALS: BP 121/67; PULSE 88; RESP 14; O2SAT 94; BMI 35.2
== END 2024-10-01 23:59 | disposition home or self-care (01) ==
PROVIDERS: PCP Internal Medicine Adolescent Medicine; Visit Provider Nurse Practitioner Family
DX: M51.16 Intervertebral disc disorders with radiculopathy, lumbar region (principal)
CPT/HCPCS: 99212; G0463

== ENCOUNTER 2024-12-29 09:14 | Outpatient (POV) | payer MEDICARE, SELFPAY ==
--- OUTSIDE RECORDS SUMMARY | 2024-10-18 17:30 | XMS_ITS ---
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 Name Role Phone Misael Edwards Primary Care Provider Migration, Provider Unavailable Unavailable Allergies Allergen (clinical drug ingredient) Drug/Non Drug Allergy documented on EMR Reaction Allergy Type Onset Date Status Substance with 4-ruouawb-3-methylgl utaryl-coenzyme A reductase inhibitor mechanism of action (substance) Statins myalgias Drug Allergy Active morphine Morphine stopped her heart Drug Allergy Active [facility] Conversion Encounter Medications Medication SIG (Take, Route, Frequency, Duration) Notes Start Date End Date Status DULoxetine HCl 30 MG 2 tabs orally daily for 90 days Active Promethazine-DM 6.25-15 MG/5ML 5 mL orally every 6 hours for 14 days Active Ezetimibe 10 MG 1 tab(s) orally once a day for 90 days Active Magnesium Oxide 400 MG 1 tab(s) orally once a day (at bedtime) for 90 days Active Ferrous Sulfate 325 (65 Fe) MG 1 tab(s) orally once a day with supper for 90 days Active Celecoxib 200 MG 1 cap(s) orally 2 times a day for 90 days Active Cyclobenzaprine HCl 10 MG 1 tab(s) orally 3 times a day prn for 30 days Active Omeprazole 20 MG 1 cap(s) orally once a day for 90 days Active Vitamin C 500 MG 1 tab(s) orally once a day for 30 day(s) Active HYDROcodone-Acetamino phen 7.5-325 MG 1 tab(s) orally twice a day for 30 days 10/15/2024 Active Terconazole 0.4 % 1 appful intravaginally once every 2 weeks prn Active Potassium 99 DAILY *Please review and pick correct strength-formulat ion from [employer] options. If intended option is not shown, discontinue and re-order from Quick Search* Active Melatonin 10 MG 2 cap(s) orally once a day (at bedtime) Active Lidocaine 5 % 1 olga applied topically 3 times a day prn Active Glimepiride 1 MG 1 tab(s) orally once a day for 30 day(s) Active Excedrin Extra Strength 250-250-65 MG 2 tab(s) orally every 6 hours prn Active EX-LAX STOOL SOFTENER 3 TABS ORALLY EVER Y OTHER DAY 2 tabs once a day *Please review for potential replacement for e-prescription and drug interaction check* Active Clobetasol Propionate 0.05 % 1 olga applied topically 2 times a day prn for 30 days Active BORIC ACID TOPICAL - 1 SUPP(S) INTRAVAGINALLY ONCE A DAY PRN not using rt now *Please review for potential replacement for e-prescription and drug interaction check* Active rOPINIRole HCl 1 MG 1 tab(s) orally 3 times a day Active Lisinopril 10 MG 1 tab(s) orally once a day for 90 Active Estradiol 0.5 MG 1 tab(s) orally twice a week Active Mucus Relief DM 60 MG-1200 MG 1 TAB(S) ORALLY 2 TIMES A DAY *Please review and pick correct strength-formulat ion from [employer] options. If intended option is not shown, discontinue and re-order from Quick Search* Active Encounters Encounter Location Date Provider Diagnosis Merged with [facility] [address] [facility] [address] [place], [place] [address] 10/18/2024 Provider Migration Chronic pain syndrome G89.4 Assessments Encounter Date Diagnosis (ICD Code) Assessment Notes Treatment Notes Treatment Clinical Notes Section Notes 10/18/2024 Chronic pain syndrome (ICD-10 - G89.4) Plan Of Treatment Medication Medication Name Sig Start Date Stop Date Notes HYDROcodone-Acetaminophen 7.5-325 MG 1 tab(s) orally twice a day for 30 days 10/15/2024 Lisinopril 10 MG 1 tab(s) orally once a day for 90 Next Appt Details Provider Name:Misael Edwards, 01/12/2025 09:30:00 AM, [address], [place], [address], Progress Notes * Estephania LOCKHARTB:1950 (74 yo F)Acc No.[id number]:10/18/2024 Patient: Lila KHALIL Provider: Alyce Davis :1950 A ge:74 Y S ex:Female Date:10/18/2024 Address:[address] [place] [address] [place], [id number] Pcp:Misael Edwards Subjective: * Chief Complaints: * 1 . Multum To Medispan Conversion Encounter. * Medical History: * Medications: T aking Mucus Relief DM 60 MG-1200 MG TABLET, EXTENDED RELEASE 1 TAB(S) ORALLY 2 TIMES A DAY , Notes to Pharmacist: *Please review and pick correct strength- formulation from [facility] options. If intended option is not shown, discontinue and re-order from Quick Search*, Taking Estradiol 0.5 MG Tablet 1 tab(s) orally twice a week , Taking rOPINIRole HCl 1 MG Tablet 1 tab(s) orally 3 times a day , Taking BORIC ACID TOPICAL - SUPPOSITORY 1 SUPP(S) INTRAVAGINALLY ONCE A DAY PRN , Notes to Pharmacist: not using rt now *Please review for potential replacement for e-prescription and drug interaction check*, Taking Clobetasol Propionate 0.05 % Ointment 1 olga applied topically 2 times a day prn , Taking EX-LAX STOOL SOFTENER 3 TABS ORALLY EVERY OTHER DAY , Notes to Pharmacist: 2 tabs once a day *Please review for potential replacement for e-prescription and drug interaction check*, Taking Excedrin Extra Strength 250-250-65 MG Tablet 2 tab(s) orally every 6 hours prn , Taking Glimepiride 1 MG Tablet 1 tab(s) orally once a day , Taking Lidocaine 5 % Ointment 1 olga applied topically 3 times a day prn , Taking Melatonin 10 MG Capsule 2 cap(s) orally once a day (at bedtime) , Taking Potassium 99 OTC DAILY , Notes to Pharmacist: *Please review and pick correct strength-formulation from [facility] options. If intended option is not shown, discontinue and re-order from Quick Search*, Taking Terconazole 0.4 % Cream 1 appful intravaginally once every 2 weeks prn , Taking Vitamin C 500 MG Tablet 1 tab(s) orally once a day , Taking Omeprazole 20 MG Capsule Delayed Release 1 cap(s) orally once a day , Taking Cyclobenzaprine HCl 10 MG Tablet 1 tab(s) orally 3 times a day prn , Taking Celecoxib 200 MG Capsule 1 cap(s) orally 2 times a day , Taking Promethazine-DM 6.25-15 MG/5ML Syrup 5 mL orally every 6 hours , Taking DULoxetine HCl 30 MG Capsule Delayed Release Particles 2 tabs orally daily , Taking Ferrous Sulfate 325 (65 Fe) MG Tablet 1 tab(s) orally once a day with supper , Taking Magnesium Oxide 400 MG Tablet 1 tab(s) orally once a day (at bedtime) , Taking Ezetimibe 10 MG Tablet 1 tab(s) orally once a day * Allergies: M orphine: stopped her heart , Statins: myalgias. Objective: * Vitals: Assessment: * Assessment: 1. C hronic pain syndrome - G89.4 Plan: * Treatment: 2. O thers Start Lisinopril Tablet, 10 MG, 1 tab(s), orally, once a day, 90, 90, Refills 1. * * Electronic signature of Prov ider Migration on 12/29/2024 at 09:17 AM EDT Sign off status: Pending * Provider: Alyce valladares Migration Date: 0 10/18/2024 Generated for Samia piedra/Greer/Sanjuanita on: 0 12/29/2024 09:17 AM EDT
--- OUTSIDE RECORDS SUMMARY | 2024-11-03 05:45 | XMS_ITS ---
Author Organization [facility] Address [address] [place] [address] Care Team Providers Care Gasket Notcher Name Role Phone Misael Edwards Primary Care Provider [phone] Allergies Allergen (clinical drug ingredient) Drug/Non Drug Allergy documented on EMR Reaction Allergy Type Onset Date Status Substance with 7-izsunmj-5-methylgl utaryl-coenzyme A reductase inhibitor mechanism of action (substance) Statins myalgias Drug Allergy Active morphine Morphine stopped her heart Drug Allergy Active REASON FOR VISIT 3 mth f/u-fasting, discuss weight Medications Medication SIG (Take, Route, Frequency, Duration) Notes Start Date End Date Status HYDROcodone-Acetamino phen 7.5-325 MG 1 tab(s) orally twice a day for 30 days 10/15/2024 Active Ezetimibe 10 MG 1 tab(s) orally once a day for 90 days Active Lisinopril 10 MG 1 tab(s) orally once a day for 90 Active Rybelsus 3 MG as directed Orally 11/03/2024 Active Magnesium Oxide 400 MG 1 tab(s) orally once a day (at bedtime) for 90 days Active Ferrous Sulfate 325 (65 Fe) MG 1 tab(s) orally once a day with supper for 90 days Active Promethazine-DM 6.25-15 MG/5ML 5 mL orally every 6 hours for 14 days Active Celecoxib 200 MG 1 cap(s) orally 2 times a day for 90 days Active Cyclobenzaprine HCl 10 MG 1 tab(s) orally 3 times a day prn for 30 days Active Terconazole 0.4 % 1 appful intravaginally once every 2 weeks prn Active Vitamin C 500 MG 1 tab(s) orally once a day for 30 day(s) Active Melatonin 10 MG 2 cap(s) orally once a day (at bedtime) Active Potassium 99 DAILY Active Omeprazole 20 MG 1 cap(s) orally once a day for 90 days Active Glimepiride 1 MG 1 tab(s) orally once a day for 30 day(s) Active Lidocaine 5 % 1 olga applied topically 3 times a day prn Active EX-LAX STOOL SOFTENER 3 TABS ORALLY EVER Y OTHER DAY 2 tabs once a day *Please review for potential replacement for e-prescription and drug interaction check* Active Excedrin Extra Strength 250-250-65 MG 2 tab(s) orally every 6 hours prn Active Clobetasol Propionate 0.05 % 1 olga applied topically 2 times a day prn for 30 days Active Mucus Relief DM 60 MG-1200 MG 1 TAB(S) ORALLY 2 TIMES A DAY *Please review and pick correct strength-formulat ion from TRAKLOK options. If intended option is not shown, discontinue and re-order from Quick Search* Active Estradiol 0.5 MG 1 tab(s) orally twice a week prn Active rOPINIRole HCl 1 MG 1 tab(s) orally 3 times a day Active BORIC ACID TOPICAL - 1 SUPP(S) INTRAVAGINALLY ONCE A DAY PRN not using rt now *Please review for potential replacement for e-prescription and drug interaction check* Active Social History Tobacco Use: Social History Observation Description Date Details (start date - stop date) Former Smoker NA - NA Smoking: Question Answer Notes Are you a: former smoker How long has it been since you last smoked? > 10 years Vital Signs Temperature 98 degrees Fahrenheit 11/03/2024 Blood pressure systolic 118 mm Hg 11/04/19 25 Blood pressure diastolic 72 mm Hg 025 Heart Rate 94 /min 11/03/2024 Height 64 in 11/03/2024 Weight 201.4 lbs 11/03/2024 BMI 34.57 kg/m2 11/03/2024 Encounters Encounter Location Date Provider Diagnosis [facility] [address] [place] [address] 11/03/2024 Misael dEwards Type 2 diabetes mellitus with other specified complication E11.69 ; BMI 34.0-34.9,adult Z68.34 and Spondylosis of lumbar region without myelopathy or radiculopathy M47.816 Assessments Encounter Date Diagnosis (ICD Code) Assessment Notes Treatment Notes Treatment Clinical Notes Section Notes 11/03/2024 Type 2 diabetes mellitus with other specified complication (ICD-10 - E11.69) Reviewed mechanism of semaglutide. Does not wish to trial shots. Gave samples of Rybelsus to see if she can tolerate this orally and then will reevaluate. Reviewed A1c from last visit. Otherwise doing well. No changes in plan. 11/03/2024 BMI 34.0-34.9,adult (ICD-10 - Z68.34) 11/03/2024 Spondylosis of lumbar region without myelopathy or radiculopathy (ICD-10 - M47.816) Patient has been compliant with our [facility] and [place] regulations r.e. meds. No concerns on my part about diversion or misuse. Labs and Bruce reports reviewed and are appropriate. Plan Of Treatment Medication Medication Name Sig Start Date Stop Date Notes Rybelsus 3 MG as directed Orally 11/03/2024 Treatment Notes Assessment Notes Type 2 diabetes mellitus wit h other specified complication Reviewed mechanism of semaglutide. Does not wish to trial shots. Gave samples of Rybelsus to see if she can tolerate this orally and then will reevaluate. Reviewed A1c from last visit. Otherwise doing well. No changes in plan. Spondylosis of lumbar region without myelopathy or radiculopathy Patient has been compliant with our [facility] and [place] regulations r.e. meds. No concerns on my part about diversion or misuse. Labs and Bruce reports reviewed and are appropriate. Next Appt Details Follow Up: 2 Months, Reason: Provider Name:Misael Edwards, 01/12/2025 09:30:00 AM, [address] [facility], [address], [place], [address], Progress Notes * Estephania LOCKHARTB:1950 (74 yo F)Acc No.[id number]:11/03/2024 Progress Notes Patient: Lila KHALIL Provider: Miguel Edwards MD :1950 A ge:74 Y S ex:Female Date:11/03/2024 Address:[place], [id number] Subjective: * Chief Complaints: * 1 . 3 mth f/u-fasting. 2. Discuss weight. * HPI: g en: Patient here to follow-up her medical problems. Overall feels well, labs in July looked good, remains concerned about her weight, wonders about options now that she is diabetic. * Medical History: D iabetes, HLD, HTN, Arthritis, Normal DEXA scan in 2011, Normal Colonoscopy in 2004, Normal mammogram 10/30, Fibromyalgia, Carpal tunnel, Appropriate UDS 04/2020. * Surgical History: B ack surgery , D and C , Left ankle , Hysterectomy , Cholecystectomy , [place] teeth extracted , Back inj-Dr. Peguero 02/21/2017, rt knee injs x 5-Dr. Ornelas 05/29- 06/26, Left foot fx- repaired 05/22/2019, Steroid inj-bilateral shoulder 12/2019, bilateral carpal tunnel surgery 09/2021, Right Eye Cataract 10/24/22, Left Eye Cataract 11/07/22, Right Total Knee Replacement 11/27/22, Colonscopy 07/2024. * Hospitalization/Major Diagno stic Procedure: S liz as above . * Family History: F ather: . M other: 58 yrs, breast cancer. P aternal Grand Father: . P aternal Grand Mother: . M aternal Grand Father: , cancer. M aternal Grand Mother: , dementia. P aternal uncle: , diagnosed with Diabetes. P aternal aunt: alive. M aternal uncle: alive. M aternal aunt: alive, thyroid issues. S iblings: alive, brother 2007- lung/brain cancer, diabetes, sister with cervical cancer and lung cancer, thyroid issues, diagnosed with Mental Illness. C windy: alive. 2 brother(s) , 3 sister(s) . 1 son(s) , 2 daughter(s) - healthy. . * Social History: S moking A re you a: f ormer smoker, H ow long has it been since you last smoked??> 10 years. R ecreational drug use: no. Exercise: no. Home smoke detector use: no. Caffeine: yes, frequency: occ soda. Living Will: No. Alcohol: no. Sexually active: no. Travel outside [place]: no. 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 * Medications: T aking Mucus Relief DM 60 MG-1200 MG TABLET, EXTENDED RELEASE 1 TAB(S) ORALLY 2 TIMES A DAY , Notes to Pharmacist: *Please review and pick correct strength- formulation from FreeBordersspan options. If intended option is not shown, discontinue and re-order from Quick Search*, Taking Estradiol 0.5 MG Tablet 1 tab(s) orally twice a week , Notes to Pharmacist: prn, Taking rOPINIRole HCl 1 MG Tablet 1 [...] , Taking Potassium 99 OTC DAILY , Taking Terconazole 0.4 % Cream 1 appful [...] mL orally every 6 hours , Taking Ferrous Sulfate 325 (65 Fe) MG Tablet 1 tab(s) orally once a day with supper , Taking Magnesium Oxide 400 MG Tablet 1 tab(s) orally once a day (at bedtime) , Taking Ezetimibe 10 MG Tablet 1 tab(s) orally once a day , Taking Lisinopril 10 MG Tablet 1 tab(s) orally once a day , Taking HYDROcodone-Acetaminophen 7.5-325 MG Tablet 1 tab(s) orally twice a day , Discontinued DULoxetine HCl 30 MG Capsule Delayed Release Particles 2 tabs orally daily , Medication List reviewed and reconciled with the patient * Allergies: M orphine: stopped her heart , Statins: myalgias. Objective: * Vitals: N urse: jl, Pain: 5-all over body, Temp: 98, RR: 20, HR: 94, BP: 118/72, Ht: 64, Wt: 201.4, BMI:34.57. * Examination: G eneral Examination: General P leasant and Cooperative, NAD on RA,. Oral cavity: M oist membranes. Chest: n ormal shape and expansion. Heart: R egular Rate and Rhythm, no murmur, rubs or gallops. HEENT: p harynx and tonsils normal, TM's normal. Lungs: L CTAB, No wheezes, crackles or rhonchi, Good air movement,. Abdomen: S oft, NTND, BSNA, No organomegaly or peritoneal signs.. Neurologic Exam: n o focal signs,, normal sensation, strength, tone and reflexes,, Alert and oriented x 3. Skin: w ithout acute rashes. Peripheral pulses: n ormal (2+) bilaterally. Back: n ormal,. Extremities: n ormal ROM,, no clubbing, no edema,, no foot lesions,. neck s upple,, no thyromegaly,, no lymphadenopathy,. Psych N ormal Mood/Affect. diabetic foot exam V isual exam of foot performed: Y es. Neck s upple, no lymphadenopathy. General Appearance: N AD, pleasant. Assessment: * Assessment: 1. T ype 2 diabetes mellitus with other specified complication - E11.69 (Primary) ?2. B NV 34.0-34.9,adult - Z68.34 3 . S pondylosis of lumbar region without myelopathy or radiculopathy - M47.816 Plan: * Treatment: 2. S pondylosis of lumbar region without myelopathy or radiculopathy Notes: Patient has been compliant with our office and [place] regulations r.e. meds. No concerns on my part about diversion or misuse. Labs and Bruce reports reviewed and are appropriate. ? * Follow Up: 2 Months * * Sign off status: Completed true * Provider: Miguel Edwards MD Date: 0 11/03/2024 Generated for Printi ng/Faxing/eTransmitting on: 0 12/29/2024 09:17 AM EDT History and Physical Notes * Examination Category Sub-Category Detail Notes Category Not es General Examination HEENT: pharynx and tonsils normal, TM's normal Neck supple, no lymphaden opathy Heart: Regular Rate and Rhy thm, no murmur, rubs or gallops Lungs: LCTAB, No wheezes, c rackles or rhonchi, Good air movement, Abdomen: Soft, NTND, BSNA, No organomegaly or peritoneal signs. Extremities: normal ROM,, no club lula, no edema,, no foot lesions, General Appearance: NAD, pleasant Skin: without acute rashes Neurologic Exam: no focal signs,, nor mal sensation, strength, tone and reflexes,, Alert and oriented x 3 Oral cavity: Moist membranes Peripheral pulses: normal (2+) bilatera lly Back: normal, Chest: normal shape and exp ansion neck supple,, no thyromeg genet,, no lymphadenopathy, General Pleasant and Coopera tive, NAD on RA, Psych Normal Mood/Affect diabetic foot exam Visual exam of foot performed :: Yes
--- OUTSIDE RECORDS SUMMARY | 2024-12-02 08:40 | XMS_ITS | Encounter Summary ---
Author Organization [facility] Address [address] [place] [address] Care Team Providers Care Custodian Manager Name Role Phone Misael Edwards MD Primary Care Provider + [phone] Reason for Referral * Consultation (Routine) - Authorized Specialty Diagnoses / Procedures Referred By Contac t Referred To Contact Diagnoses Type 2 diabetes mellitus with hyperglycemia, without long-term current use of insulin (CMS/HCC) Jared Marin MD [address] [address] Phone: tel: fax: Referral ID Status Reason Start Date Expiration Date V isits Requested Visits Authorized [id number] Authorized 12/02/2024 06/03/2026 1 1 Reason for Visit * Reason Comments Diabetes Encounter Details Date Type Department Care Team (Late st Contact Info) Description 12/02/2024 8:40 AM EDT [facility] [address] [place] [address] (1), Jared Marin Fellow Jared Marin MD [address] [address] Type 2 diabetes mellitus with hyperglycemia, without long-term current use of insulin (CMS/HCC) (Primary Dx); Class 1 obesity due to excess calories with serious comorbidity and body mass index (BMI) of 34.0 to 34.9 in adult Social History Tobacco Use Types Packs/Day Years Used Date Smoking Tobacco: Former Cigarettes 1 40 1 967 - 2007 Passive Smoke Exposure: Past Smokeless Tobacco: Never Alcohol Use Standard Drinks/Week Comments Not Currently 0 (1 standard drink = 0.6 oz pur e alcohol) PHQ-2 Answer Date Recorded Patient Health Questionnaire-2 Score 1 12/02/2024 PHQ-2A Answer Date Recorded Patient Health Questionnaire-2 Score 1 11/24/2022 Comments No Sex and Gender Information Value Date Recorded Sex Assigned at Not on file Legal Sex Female 6:37 PM EDT Gender Identity Not on file Sexual Orientation Not on file documented as of this encounter Last Filed Vital Signs Vital Sign Reading Time Taken Comments Blood Pressure 95/56 12/02/2024 8:27 AM EDT Pulse 77 12/02/2024 8:27 AM EDT Temperature - - Respiratory Rate - - Oxygen Saturation - - Inhaled Oxygen Concentration - - Weight 90.9 kg (200 lb 6.4 oz) 12/02/2024 8:27 A M EDT Height 162.6 cm (5' 4 ) 12/02/2024 8:27 AM EDT Body Mass Index 34.4 12/02/2024 8:27 AM EDT documented in this encounter Functional Status * Over the past 2 weeks, how often have you been bothered by any of the following problems? Question Answer Date of Assessment Author Little interest or pleasure in doing things Not at all 12/02/2024 8:34 AM EDT Lucinda Khan Feeling down, depressed, or hopeless Several days 12/02/2024 8:34 AM EDT Lucinda Khan Patient Health Questionnaire -2 Score 1 12/02/2024 8:34 AM EDT Lucinda Khan documented as of this encounter Miscellaneous Notes * Patient Instructions - Krystian Reveles DO - 12/02/2024 8:40 AM EDT Please try to get the updated urine MACR today. Glimepiride refilled today. You can continue the Rybelsus (can help with weight and DM). Rybelsus script (7 mg daily) written today - if it is still too expensive, please call our clinic and we will try to get patient assistance program so that you can afford it. * Progress Notes - Krystian Reveles DO - 12/02/2024 8:40 AM EDT Subjective Chief Complaint: T2DM Lila Lockhart is a 74 y.o. female with PMH of T2DM, HTN, HLD and obesity who presents for an follow up evaluation of Diabetes Mellitus Type 2. Diagnosed approximately 11 years ago. Current symptoms/problems include hyperglycemia and numbness in b/l feet. She reports having increased falls recently (mechanical, not related to hypoglycemia). Lila tries to follow a good diet but sometimes eats the wrong things. Her BP runs on the low side (95/56 this AM) with some associated dizziness and lightheadedness. T2DM Last visit: 06/03/24 A1c 6.7% today, down from 7.3% at her last visit Current treatment includes Glimepiride 1 mg daily in AM & Rybelsus 3 mg daily (expensive, gets samples) Failed/previous medications: Discontinued metformin in September 2023 due to side effects and concerns in regards to medication. Known diabetic complications: none Compliance at present is estimated to be excellent. Cardiovascular risk factors: advanced age (older than 55 for men, 65 for women), diabetes mellitus,dyslipidemia, hypertension, obesity (BMI >= 30 kg/m2), and sedentary lifestyle Is she on LIZY inhibitor or angiotensin II receptor faye? Yes - lisinopril 10 mg daily Is she on a Statin - No (has hx of muscle cramps), on Zetia Current diet: {diet habits:Tries to eat healthy (has a garden at home) Current exercise: {exercise types:none - limited Home blood sugar records: Checks twice daily (AM & PM), readings typically 130s-150s - Hypoglycemia awareness: intact - feels shaky with lows - denies recent hypoglycemic events; last event in 12/2023 - Retinopathy Evaluation: UTD eye exam with retina specialist 05/2024, no retinopathy, was seen by a retina specialist in 05/2024 (no injections) - Neuropathy Evaluation: Neuropathy present in feet, last foot examination by PCP in 02/2024 for swollen left great toe -> still swollen & hurts - Nephropathy: no evidence of microalbuminuria on previous labs. On ACEi - ASCVD: No stroke or heart attack. ROS Review of Systems Constitutional: Negative. Respiratory: Negative. Cardiovascular: Negative. Gastrointestinal: Negative. Genitourinary: Negative. Musculoskeletal: Frequent falls Neurological: Positive for dizziness, tremors (WIth hypoglycemia) and light-headedness. Psychiatric/Behavioral: Negative. All other systems reviewed and are negative. Objective Visit Vitals BP 95/56 (BP Location: Left arm, Patient Position: Sitting, BP Cuff Size: Adult long) Pulse 77 Ht 1.626 m (5' 4 ) Wt 90.9 kg (200 lb 6.4 oz) BMI 34.40 kg/m?? OB Status Hysterectomy Smoking Status Former BSA 2.03 m?? Physical Exam Constitutional: Appearance: Normal appearance. She is obese. HENT: Head: Normocephalic and atraumatic. Right Ear: External ear normal. Left Ear: External ear normal. Nose: Nose normal. Cardiovascular: Rate and Rhythm: Normal rate. Pulmonary: Effort: Pulmonary effort is normal. No respiratory distress. Skin: General: Skin is warm and dry. Neurological: Mental Status: She is alert and oriented to person, place, and time. Mental status is at baseline. Psychiatric: Mood and Affect: Mood normal. Behavior: Behavior normal. Thought Content: Thought content normal. Judgment: Judgment normal. Lab Review Lab Results Component Value Date HGBA1C 6.7 12/02/2024 Lab Results Component Value Date GLUCOSE 136 (H) 06/03/2024 BUN 15 06/03/2024 CREATININE 0.74 06/03/2024 BCR 20 06/03/2024 NA 137 06/03/2024 K 5.0 (H) 06/03/2024 CL 102 06/03/2024 CO2 24 06/03/2024 CA 9.9 09/11/2016 ALBUMIN 4.3 06/03/2024 ALKPHOS 71 06/03/2024 BILITOT 0.4 06/03/2024 Lab Results Component Value Date CHOL 228 (H) 06/03/2024 CHOL 235 09/11/2016 Lab Results Component Value Date HDL 54 06/03/2024 HDL 57 09/11/2016 Lab Results Component Value Date LDLCALC 149 (H) 06/03/2024 LDLCALC 150 09/11/2016 Lab Results Component Value Date TRIG 142 06/03/2024 TRIG 141 09/11/2016 f1 Lab Results Component Value Date CRATIO 4 06/03/2024 CRATIO 09/11/2016 4.1 (NOTE) Total Cholesterol/HDL Ratio Reference Range <5.0 Desirable 5.0 to 6.0 Borderline high >6.0 High Assessment/Plan Diabetes Mellitus Type 2, controlled - A1c 6.7% today, down from 7.3% at last visit - Current treatment includes Glimepiride 1 mg daily in AM + Rybelsus 3 mg daily (started 1 month ago) - Failed/Discontinued meds: none PLAN: - Continue glimepiride 1 mg daily, refilled today - Increased Rybelsus from 3 mg to 7 mg daily today, new script sent to pharmacy - instructed patient to make improvements in her diet - continue checking BG daily - UTD annual DM eye exam completed 05/2024 - Last foot examination by PCP in 02/2024, counseled patient on continued daily foot care/checks - UTD on annual DM labs except for urine MACR (order previously placed), patient instructed to havethis checked today - continue lisinopril and Zetia; not on statin Class I Obesity - uncontrolled - Body mass index is 34.4 kg/m??. - PCP started Rybelsus 3 mg daily about a month ago, patient tolerating well without GI side effects - Patient prefers PO vs. Injectable agent PLAN: - Will increase Rybelsus to 7 mg daily today - If cost is an issue, patient assistance program can be pursued - Encouraged healthy diet and exercise as tolerated RTC in 6 months Krystian Reveles DO Endocrinology Fellow PGY-[address] [facility] [address] [place] [address] [address] [place]. [address] PHONE [phone] FAX: [phone] documented in this encounter Plan of Treatment Upcoming Encounters Date Type Department Care Team (Late st Contact Info) Description 01/29/2025 8:00 AM EDT Office Visit [facility] [address] [place] [address] Epi Burgos MD [address] [facility] [address] [place] [address] 06/09/2025 8:40 AM EST Office Visit [facility] Endocrinology [address] [place] [address] (3), Jared Marin Fellow Scheduled Referrals Name Type Priority Associated Diagnoses Orde r Schedule Follow Up [facility] Outpatient Referral Routine Type 2 diabetes mellitus with hyperglycemia, without long-term current use of insulin ([facility]) Expected: 06/04/2025, Expires: 01/02/2026 documented as of this encounter Procedures Procedure Name Priority Date/Time Associated Diagnosis Comments POCT GLYCOSYLATED HEMOGLOBIN (HGB A1C) Routine 12/02/2024 8:39 AM EDT Type 2 diabetes mellitus with hyperglycemia, without long-term current use of insulin ([facility]) documented in this encounter Results * (ABNORMAL) POCT glycosylated hemoglobin (Hb A1C) (12/02/2024 8:39 AM EDT) POCT Hemoglobin A1C 6.7 <5.7% Non-Diabet ic % [facility] Kit Lot Number [id number] [facility] Kit Expiration Date 10/09 [facility] Blood Venous blood specimen / Unknown 12/02/2024 8:39 AM EDT us Jared Marin MD POINT OF CARE TEST ENTER/EDIT ORDERABLES Final Result [facility] [address] [place] [address] documented in this encounter Visit Diagnoses Diagnosis Type 2 diabetes mellitus with hyperglycemia, without long-term current use of insulin ([facility])- Primary Class 1 obesity due to excess calories with serious comorbidity and body mass index (BMI) of 34.0 to 34.9 in adult documented in this encounter Additional Health Concerns Assessment Noted Time A fall risk assessment has been complete d for the patient 12/02/2024 8:35 AM EDT A Body Mass Index follow-up plan has been documented for the patient 12/12/2024 4:25 PM EDT documented as of this encounter Care Teams Custodian Manager Relationship Specialty Start Date End Date Misael Edwards MD [address] [place] [address] PCP - General 11/26/20 documented as of this encounter
--- NOTE | 2024-12-29 09:17 | EXP.PAIN.SOA ---
[facility] Disclaimer: The information contained in this section may have been updated after the patient was seen, as this information can be updated by other users. Social History (Updated 03/23/23 @ 10:41 by Nito Peguero CRNA) Smoking Status: Never smoker alcohol intake: never substance use type: denies use current occupational status: other Travel in the last 8 weeks?: None household members: spouse housing: house current occupational exposures/hazards: No caffeine: Yes PM Subjective & Objective Subjective Subjective:: Patient is a pleasant 74-year-old female who presents today for 3-month follow-up. Today she rates her pain an 9 out of 10. She does state today is just an overall bad day. She states she is just having more overall neck and low back pain. Patient states she is going to go to the chiropractor for an adjustment. Patient does state that she did fall out of the bed here a couple of weeks ago but does not feel like she did anything significant. Patient states that overall she is just always been clumsy. Patient is currently prescribed from our office ropinirole 1 mg 4 times a day, Flexeril 10 mg 4 times a day and compounded cream. She denies any side effects. Her Bruce has been reviewed and is appropriate. Patient is prescribed [place] from an outside provider. Review of Systems: General: No recent weight changes, no fever, no sleep disturbances Respiratory: No cough, no shortness of air, no recurring pulmonary infections Cardiovascular/peripheral vascular: No chest pain, no palpitations, no edema, no shortness of breath Gastrointestinal: No new onset incontinence, normal bowel movements reported Genitourinary: No new onset incontinence Musculoskeletal: Low back pain Psychiatric: [Normal mood/affect] Neurological: [Denies weakness in extremities], [denies balance issues] Pain at rest (0-10 scale): 9 Objective Objective:: Physical Exam: General: Alert and oriented x3, no acute distress, pleasant and cooperative Lungs: Respirations even and unlabored, symmetrical chest expansion Eyes: PERRL Musculoskeletal: Flexion and extension of lumbar [spine] somewhat guarded secondary to pain, [antalgic gait noted] Neurological: Speech clear, no gross sensory deficit Has patient had previous pain injection?: No Conservative treatment options previously tried: Home exercise plan Length of treatment: Longer than 12 weeks Meds Home Medications and Allergies Home Medications ?Medication ?Instructions ?Recorded ?Confirmed ?Type ferrous sulfate 325 mg (65 mg 325 mg PO DAILY Supplement 11/26/17 10/01/24 History iron) tablet melatonin ER 10 mg-pyridoxine HCl 1 each PO HS Allergy symptoms 11/26/17 10/01/24 History (B6) 10 mg tab, immed-extend release ascorbic acid (vitamin C) 500 mg 500 mg PO DAILY Supplement 02/05/18 10/01/24 History capsule calcium 500 mg-vitamin D3 1,000 1 each PO DAILY Supplement 02/05/18 10/01/24 History unit-vitamin K 40 mcg chewable tablet cetirizine 10 mg capsule 10 mg PO DAILY ALLERGIES 02/05/18 10/01/24 History estradiol 0.5 mg tablet 0.1 mg PO DAILY HRT 02/05/18 10/01/24 History ezetimibe 10 mg tablet 10 mg PO DAILY High cholesterol 02/05/18 10/01/24 History gemfibrozil 600 mg tablet 600 mg PO BID UNKNOWN 02/05/18 10/01/24 History lisinopril 10 mg tablet 10 mg PO DAILY BLOOD PRESSURE 02/05/18 10/01/24 History magnesium 250 mg tablet 250 mg PO DAILY Supplement 02/05/18 10/01/24 History metformin 500 mg tablet 500 mg PO BID Diabetes 02/05/18 10/01/24 History potassium 99 mg tablet 99 mg PO DAILY Supplement 02/05/18 10/01/24 History celecoxib 200 mg capsule (Celebrex) 200 mg PO DAILY Pain 11/26/19 10/01/24 History hydrocodone 7.5 mg-acetaminophen 7.5 mg PO BID Pain 11/26/19 10/01/24 History 325 mg tablet baclofen 5 mg tablet 5 mg PO TID #90 tabs 12/03/23 10/01/24 Rx cyclobenzaprine 10 mg tablet 10 mg PO QID SPASMS #120 tabs 10/01/24 Rx ropinirole 1 mg tablet 1 mg PO QID #120 tabs 10/01/24 Rx New Prescriptions to Start Prescriptions: Allergies Allergy/AdvReac Type Severity Reaction Status Date / Time morphine Allergy Severe STOPS HEART Verified 01/06/22 10:09 [id number]-XdC Reductase Allergy Unknown SWELLING Verified 01/06/22 10:09 Inhibitor ([id number] REDUCTASE INHIBITOR) Assessment and Plan *Assessment and plan (1) Lumbar radiculopathy: Status: Acute Category: Medical Code(s): M54.16 - Radiculopathy, lumbar region (2) Degenerative disc disease, lumbar: Status: Acute Category: Medical Code(s): M51.369 - Other intervertebral disc degeneration, lumbar region without mention of lumbar back pain or lower extremity pain (3) Neck pain: Status: Acute Category: Medical Code(s): M54.2 - Cervicalgia Plan I will send in a 6-month supply of the ropinirole and Flexeril. Patient will return to clinic in 6 months for reevaluation of symptoms and plan of care. Patient has been instructed to contact the clinic with any concerns before the next appointment. Dr. Mobley has reviewed this note and agrees with this plan of care. This note was dictated using voice recognition software and make contain errors or omissions. All injections are used with Lidocaine, Bupivacaine and dexamethasone. Occasionally urine drug screen is needed to verify patient's compliance with our office pain contract. This is ordered based off specific treatments related to chronic pain with the potential to abuse certain medications.
--- OUTSIDE RECORDS SUMMARY | 2024-12-29 09:17 | XMS_ITS | Clinical Summary ---
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 9 Active celecoxib (CeleBREX) 200 MG capsule TAKE 1 CAPSULE TWICE DAILY. 0 Active clobetasol (Temovate) 0.05 % ointment Apply topically if needed. 4 Active cyclobenzaprine (Flexeril) 10 MG tablet Take 1 tablet (10 mg) by mouth 2 (two) times a day if needed. 5 Active ezetimibe (Zetia) 10 MG tablet TAKE 1 TABLET AT BEDTIME. 6 Active HYDROcodone-alvino taminophen (Berino) 7.5-325 MG tablet TAKE 1 TABLET 3 TIMES DAILY NEEDED FOR PAIN. 0 Active Lidocaine HCl 3 % cream 9 Active lisinopril 10 MG tablet Take 1 tablet (10 mg) by mouth 1 (one) time each day. 7 Active Potassium Gluconate 2.5 MEQ tablet TAKE 1 TABLET DAILY. 5 Active promethazine-de xtromethorphan (Phenergan-DM) 6.25-15 MG/5ML syrup As needed 9 Active terconazole (Terazol 7) 0.4 % vaginal cream 5 Active FeroSul 325 (65 Fe) MG tablet Take 1 tablet (325 mg) by mouth 1 (one) time each day with breakfast. 1 Active Magnesium Oxide -Mg Supplement 400 MG capsule 1 (one) time each day. 9 Active DULoxetine (Cymbalta) [address] capsule Take 1 capsule (60 mg) by mouth 1 (one) time each day. 2 Active rOPINIRole (Requip) 0.25 MG tablet Take 4 tablets (1 mg) by mouth every 12 (twelve) hours. Active rOPINIRole (Requip) 0.25 MG tablet 2 Active Nutritional Supplements (Quinoa/Kale/He mp) liquid Take by mouth. One a day Active aspirin-acetami nophen-caffeine (Excedrin Migraine) 250-250-65 MG tablet Take 1 tablet by mouth every 6 (six) hours if needed for headaches. Active Potassium 99 MG tablet Potassium 99 MG Oral Tablet QTY: 0 tablet Days: 0 Refills: 0 Written: 11/07/22 Patient Instructions: 3 Active omeprazole (PriLOSEC) [address] capsule Omeprazole 20 MG Oral Capsule Delayed Release QTY: 90 capsule Days: 90 Refills: 0 Written: 10/06/22 Patient Instructions: 3 Active HYDROcodone Bitartrate ER 10 MG capsule sustained-relea se 12 hr HYDROcodone Bitartrate ER 10 MG Oral Capsule Extended Release 12 Hour QTY: 0 capsule Days: 0 Refills: 0 Written: 11/07/22 Patient Instructions: 3 Active prednisoLONE acetate (Pred-Forte) 1 % ophthalmic suspension Administer 1 drop into both eyes 4 (four) times a day. Active oxyCODONE (Roxicodone) 5 MG immediate release tablet 3 Active glimepiride (Amaryl) 1 MG tabletIndicatio ns:Type 2 diabetes mellitus with hyperglycemia, without long-term current use of insulin (CMS/HCC) Take 1 tablet by mouth daily before breakfast. 90 tablet 1 5 Active tirzepatide (Mounjaro) 2.5 MG/0.5ML solution auto-injector solution pen-injectorInd ications:Type 2 Diabetes Mellitus Inject 0.5 mL under the skin 1 time per week. 2 mL 1 5 Active glimepiride (Amaryl) 1 MG tabletIndicatio ns:Type 2 diabetes mellitus with hyperglycemia, without long-term current use of insulin (CMS/HCC) TAKE 1 TABLET BY MOUTH ONCE DAILY BEFORE BREAKFAST 90 tablet 5 025 Discontin ued(Reord er) semaglutide (Rybelsus) 3 MG tablet Take 3 mg by mouth daily before breakfast. 025 Discontin ued(Dose adjustmen t) semaglutide (Rybelsus) 7 MG tabletIndicatio ns:Type 2 diabetes mellitus with hyperglycemia, without long-term current use of insulin (CMS/HCC) Take 7 mg by mouth daily before breakfast. 30 tablet 5 5 025 Discontin ued(Cost of medicatio n) Active Problems Problem Noted Date Diagnosed Date Retinal hole of left eye 04/30/2024 Status post left cataract extraction 11/07/2022 Status post right cataract extraction 10/24/2022 Early dry stage nonexudative age-related macular degeneration 09/22/2022 Combined forms of age-related cataract of left e ye 03/17/2022 Irregular astigmatism of both eyes 09/29/2021 Lattice degeneration of left retina 03/31/2021 Bilateral dry eyes 09/16/2020 Bruising 09/11/2016 Fuchs' corneal dystrophy of both eyes 03/27/2016 Diabetes mellitus type 2 without retinopathy 06/2016 Age-related nuclear cataract of both eyes 2015 HTN (hypertension) 07/26/2015 Hyperlipidemia 02/16/2014 Obesity 02/16/2014 Type 2 diabetes mellitus, uncontrolled 4 Encounters Date Type Department Care Team Description 12/11/2024 Refill [facility] [address] [place] [address] Raina Austin 12/09/2024 Telephone [facility] [address] [place] [address] Krystian Reveles DO Prior-authorization/ insurance Verification 12/03/2024 Results Follow-Up [facility] [address] [place] [address] Krystian Reveles DO 12/02/2024 8:40 AM EDT Office Visit [facility] [address] [place] [address] (1), Jared Marin Fellow Jared Marin MD Type 2 diabetes mellitus with hyperglycemia, without long-term current use of insulin (CMS/HCC) (Primary Dx); Class 1 obesity due to excess calories with serious comorbidity and body mass index (BMI) of 34.0 to 34.9 in adult 12/02/2024 Travel 10/16/2024 Refill [facility] [address] [place] [address] Bobbi Funes DO Type 2 diabetes mellitus with hyperglycemia, without long-term current use of insulin (CMS/HCC) from Last 3 Months Family History Medical History Relation Name Comments Breast cancer Mother Other cancer Other Alcohol abuse Sibling 1 Diabetes Sibling 2 Cervical cancer Sister 1 Thyroid disease Sister 2 Relation Name Status Comments Mother Other Sibling 1 Sibling 2 Sister 1 Sister 2 Social History Tobacco Use Types Packs/Day Years [...] on file Sexual Orientation Not on file Last Filed Vital Signs Vital Sign Reading Time Taken Comments Blood Pressure 95/56 12/02/2024 8:27 AM EDT Pulse 77 12/02/2024 8:27 AM EDT Temperature 37 C (98.6 F) 11/07/2022 8:23 AM EDT Respiratory Rate 18 11/07/2022 8:25 AM EDT Oxygen Saturation 98% 11/07/2022 8:30 AM EDT Inhaled Oxygen Concentration - - Weight 90.9 kg (200 lb 6.4 oz) 12/02/2024 8:27 A M EDT Height 162.6 cm (5' 4 ) 12/02/2024 8:27 AM EDT Body Mass Index 34.4 12/02/2024 8:27 AM EDT Plan of Treatment Upcoming Encounters Date Type Department Care Team (Late st Contact Info) Description 01/29/2025 8:00 AM EDT Office Visit [facility] [address] [facility] [place] [address] Epi Burgos MD [address] [place] [address] 06/09/2025 8:40 AM EST Office Visit [facility] [address] [place] [address] (3), Jared Marin Fellow Health Maintenance Due Date Last Done Comments [facility]-Bone Density Scan 1950 [facility]-Hepatitis C Screening 1950 [facility]-Medicare Annual Wellness (AWV) 1950 [facility]-Infant/Child/Adol SDOH Screenings 1950 Diabetes: Dental Exam 1960 [facility]- SDOH Screenings 1968 [facility]-Adult SDOH Screenings 1968 [facility]-DTaP,Tdap,and Td Vaccines (1 - Tdap) 1969 [facility]-Pneumococcal Vaccine: 50+ Years (1 of 2 - PCV) 1969 CT Colonography 1995 Colonoscopy 1995 FIT-DNA 1995 FIT 1995 FOBT 1995 Sigmoidoscopy 1995 [facility]-Colorectal Cancer Screening 1995 [facility]-Zoster Vaccines (1 of 2) 2000 [id number] Vaccine ( season) 2024 04/21/2024, 05/03/2023, 07/06/2021, Additional history exists [facility]-Influenza Vaccine (Season Ended) 2025 [facility]-Diabetes: Hemoglobin A1C 06/01/2025, 06/03/2024, 11/27/2023, Additional history exists [facility]-RSV Vaccine: 60+ Years or (1 - 1-dose 75+ series) 2025 [facility]-Depression Screening 12/02/2025 12/02/2024 [facility]-Breast Cancer Screening 04/24/202604/15, 04/24/2024, 04/20/2023, Additional history exists [facility]-Obesity Intervention Completed 025, 06/03/2024, 05/26/2024, Additional history exists HPV Vaccines Aged Out No longer eligi ble based on patient's age to complete this topic [facility]-HIB Vaccines Aged Out No longer e ligible based on patient's age to complete this topic [facility]-Hepatitis A Vaccines Aged Out No longer eligible based on patient's age to complete this topic [facility]-IPV Vaccines Aged Out No longer e ligible based on patient's age to complete this topic [facility]-Rotavirus Vaccines Aged Out No lo nger eligible based on patient's age to complete this topic Medical Devices Implanted Type Area Bleach Boiler Puller Device Identifier Shelf Expiration Date Model / Serial / Lot Lens [id number] 20 - [id number] Implanted:Qty: 1 on 10/24/2022 by Epi Burgos MD at [facility] Right: Eye [id number] 04/01/2027 SN60WF.200 / [id number] / [id number] Lens Sn60wf 20.5 - [id number] - [id number] Implanted:Qty: 1 on 11/07/2022 by Epi Burgos MD at [facility] Left: Eye [id number] 04/02/2027 SN60WF.205 / [id number] / [id number] Procedures Procedure Name Priority Date/Time Associated Diagnosis Comments ALBUMIN, URINE, RANDOM Routine 12/02/2024 9:49 AM EDT Type 2 diabetes mellitus with hyperglycemia, without long-term current use of insulin ([facility]) POCT GLYCOSYLATED HEMOGLOBIN (HGB A1C) Routine 12/02/2024 8:39 AM EDT Type 2 diabetes mellitus with hyperglycemia, without long-term current use of insulin ([facility]) from Last 3 Months Results * Albumin-creatinine ratio, urine, random (12/02/2024 9:49 AM EDT) Microalbumin, Urine <1.2 <1.9 mg/dL 12/02/2024 12:44 PM EDT [facility] Creatinine, Urine 97 mg/dL 12/02/2024 12:44 PM EDT [facility] Albumin/Creatin ine Ratio 12/02/2024 12:44 PM EDT [facility] Comment:Unable to calculate, at least one value is above or below the detection limit. Urine Urine specimen obtained by clean catch procedure / Unknown Non-blood Collection / Unknown 12/02/2024 9:49 AM EDT 12/02/2024 9:49 AM EDT us Jared Marin MD LAB URINE ORDERABLES Final Res ult Performing Organization Address City/State/[facility] Co de Phone Number [facility] [address] [place] [address] * (ABNORMAL) POCT glycosylated hemoglobin (Hb A1C) (12/02/2024 8:39 AM EDT) POCT Hemoglobin A1C 6.7 <5.7% Non-Diabet ic % [facility] Kit Lot Number [id number] [facility] Kit Expiration Date 10/09 [facility] Blood Venous blood specimen / Unknown 12/02/2024 8:39 AM EDT us Jared Marin MD POINT OF CARE TEST ENTER/EDIT ORDERABLES Final Result [facility] [address] [place] [address] from Last 3 Months Insurance MEDICARE [employer] Care Teams 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
--- OUTSIDE RECORDS SUMMARY | 2024-12-29 09:18 | XMS_ITS | Patient Health Record ---
Author Organization [facility] Address [address] [place] [address] Care Team Providers Care Financial Intern Name Role Phone Misael Edwards Primary Care Provider McNeaaron, Shaneka Unavailable [phone] Migration, Provider Unavailable Unavailable Allergies Allergen (clinical drug ingredient) Drug/Non Drug Allergy documented on EMR Reaction Allergy Type Onset Date Status Substance with 6-twptmhu-4-methylgl utaryl-coenzyme A reductase inhibitor mechanism of action (substance) Statins myalgias Drug Allergy Active morphine Morphine stopped her heart Drug Allergy Active Results Component Value Reference Range Notes X ray : Foot, Left Reviewed date:03/07/2024 12:37:12 PM Interpretation: Performing Lab: Notes/Report: DRUG MONITOR, BASE PANEL, [place] CARSON, URINE ([id number]) Reviewed date:08/13/2024 08:25:54 AM Interpretation: Performing Lab:[facility], [facility] [facility], [facility] CenterAilqBB[address] Thierry Pryor Notes/Report: NON-FASTING; NON-FASTING; NON-FASTING; NON-FASTING NON-FASTING; NON-FASTING; NON-FASTING; NON-FASTING Benzodiazepines NEGATIVE <100 ng/mL See Note A Cocaine Metabolite NEGATIVE <150 ng/mL See Note A Opiates POSITIVE <100 ng/mL See Note A Oxycodone NEGATIVE <100 ng/mL See Note A Creatinine 42.1 > or = 20.0 mg/dL pH 4.6 4.5-9.0 Oxidant NEGATIVE <200 mcg/mL Notes and Comments This drug testing is for medical treatment only. Analysis was performed as non-forensic testing and these results should be used only by healthcare providers to render diagnosis or treatment, or to monitor progress of medical conditions. Note A: The results are presumptive; based only on screening methods, and they have not been confirmed by a definitive method. Healthcare Providers needing Interpretation assistance, please contact us at [phone] ( ) M-F, 8am to 10pm EST Microalbumin (In-House) Reviewed date:08/11/2024 06:33:56 PM Interpretation: Performing Lab: Notes/Report: ALB 10mg CRE 50mg A:C <30mg HEMOGLOBIN A1c (496) Reviewed date:04/23/2024 09:32:44 AM Interpretation: Performing Lab:[facility] [employer] Groupte[facility], [facility] [id number] Thierry Pryor Notes/Report: NON-FASTING; NON-FASTING HEMOGLOBIN A1c 7.6 <5.7 % of total Hgb For someone without known diabetes, a hemoglobin A1c value of 6.5% or greater indicates that they may have diabetes and this should be confirmed with a follow-up test. For someone with known diabetes, a value <7% indicates that their diabetes is well controlled and a value greater than or equal to 7% indicates suboptimal control. A1c targets should be individualized based on duration of diabetes, age, comorbid conditions, and other considerations. Currently, no consensus exists regarding use of hemoglobin A1c for diagnosis of diabetes for children. CBC (INCLUDES DIFF/PLT) (639 9) Reviewed date:08/13/2024 08:25:54 AM Interpretation: Performing Lab:[facility] [employer] Jrbe4248 [address] Grou[facility]el [facility], [facility] HospitalZxrrWL[address] Thierry Pryor Notes/Report: NON-FASTING; NON-FASTING; NON-FASTING; NON-FASTING WHITE BLOOD CELL COUNT 7.2 3.8-10.8 Thousand/ uL RED BLOOD CELL COUNT 4.65 3.80-5.10 Million/uL HEMOGLOBIN 13.6 11.7-15.5 g/dL HEMATOCRIT 41.9 35.0-45.0 % MCV 90.1 80.0-100.0 fL MCH 29.2 27.0-33.0 pg MCHC 32.5 32.0-36.0 g/dL For adults, a slight decrease in the calculated MCHC value (in the range of 30 to 32 g/dL) is most likely not clinically significant; however, it should be interpreted with caution in correlation with other red cell parameters and the patient's clinical condition. RDW 13.6 11.0-15.0 % PLATELET COUNT 299 140-400 Thousand/uL MPV 10.6 7.5-12.5 fL ABSOLUTE NEUTROPHILS [phone] cells/uL ABSOLUTE LYMPHOCYTES 7249 693-1713 cells/uL ABSOLUTE MONOCYTES 684 200-950 cells/uL ABSOLUTE EOSINOPHILS 353 15-500 cells/uL ABSOLUTE BASOPHILS 72 0-200 cells/uL NEUTROPHILS 57.8 LYMPHOCYTES 26.8 MONOCYTES 9.5 EOSINOPHILS 4.9 BASOPHILS 1.0 BASIC METABOLIC PANEL ([id number] ) Reviewed date:04/23/2024 09:32:44 AM Interpretation: Performing Lab:KALYAN, [facility] [employer] GroupteApplied [employer], CausecastGavhUX[address] Thierry Pryor Notes/Report: NON-FASTING; NON-FASTING GLUCOSE 124 65-99 mg/dL Fasting reference interval For someone without known diabetes, a glucose value between 100 and 125 mg/dL is consistent with prediabetes and should be confirmed with a follow-up test. UREA NITROGEN (BUN) 13 7-25 mg/dL CREATININE 0.67 0.60-1.00 mg/dL EGFR 92 > OR = 60 mL/min/1.73m2 BUN/CREATININE RATIO SEE NOTE: 6-22 (calc) Not Reported: BUN and Creatinine are within reference range. SODIUM 136 135-146 mmol/L POTASSIUM 4.7 3.5-5.3 mmol/L CHLORIDE 101 98-110 mmol/L CARBON DIOXIDE 30 20-32 mmol/L CALCIUM 9.4 8.6-10.4 mg/dL COMPREHENSIVE METABOLIC PANE L ([id number]) Reviewed date:08/13/2024 08:25:54 AM Interpretation: Performing Lab:KALYAN, [address], CausecastYtigDJ[address] Thierry Pryor Notes/Report: NON-FASTING; NON-FASTING; NON-FASTING; NON-FASTING GLUCOSE 85 65-99 mg/dL Fasting reference interval UREA NITROGEN (BUN) 20 7-25 mg/dL CREATININE 0.71 0.60-1.00 mg/dL EGFR 90 > OR = 60 mL/min/1.73m2 BUN/CREATININE RATIO SEE NOTE: 6-22 (calc) Not Reported: BUN and Creatinine are within reference range. SODIUM 139 135-146 mmol/L POTASSIUM 4.8 3.5-5.3 mmol/L CHLORIDE 103 98-110 mmol/L CARBON DIOXIDE 24 20-32 mmol/L CALCIUM 9.5 8.6-10.4 mg/dL PROTEIN, TOTAL 6.9 6.1-8.1 g/dL ALBUMIN 4.3 3.6-5.1 g/dL GLOBULIN 2.6 1.9-3.7 g/dL (calc) ALBUMIN/GLOBULIN RATIO 1.7 1.0-2.5 (calc) BILIRUBIN, TOTAL 0.7 0.2-1.2 mg/dL ALKALINE PHOSPHATASE 70 37-153 U/L AST 19 10-35 U/L ALT 20 6-29 U/L LIPID PANEL, STANDARD (7600) Reviewed date:08/13/2024 08:25:54 AM Interpretation: Performing Lab:KALYAN, [facility] [facility]te[facility], [facility] HospitalXhknNO[address] Thierry Pryor Notes/Report: NON-FASTING; NON-FASTING; NON-FASTING; NON-FASTING CHOLESTEROL, TOTAL 228 <200 mg/dL HDL CHOLESTEROL 68 > OR = 50 mg/dL TRIGLYCERIDES 152 <150 mg/dL LDL-CHOLESTEROL 132 Reference range: <100 Desirable range <100 mg/dL for primary prevention; <70 mg/dL for patients with CHD or diabetic patients with > or = 2 CHD risk factors. LDL-C is now calculated using the Roselia calculation, which is a validated novel method providing better accuracy than the Friedewald equation in the estimation of LDL-C. Marshall PORRAS et al. IVORY. 2013;310(19): 6413-7165 (http://education.Fanvibe.Sport Endurance/faq/LMR656) CHOL/HDLC RATIO 3.4 <5.0 (calc) NON HDL CHOLESTEROL 160 <130 mg/dL (calc) For patients with diabetes plus 1 major ASCVD risk factor, treating to a non-HDL-C goal of <100 mg/dL (LDL-C of <70 mg/dL) is considered a therapeutic option. Reason For Referral No Information Medications Medication SIG (Take, Route, Frequency, Duration) Notes Start Date End Date Status Cymbalta 30 MG 1 capsule Orally Once a day for 30 days 12/23/2024 Active Celecoxib 200 MG 1 cap(s) orally 2 times a day for 90 days Active HYDROcodone-Acetamino phen 7.5-325 MG 1 tab(s) orally twice a day for 30 days 12/15/2024 Active Mucus Relief DM 60 MG-1200 MG 1 TAB(S) ORALLY 2 TIMES A DAY *Please review and pick correct strength-formulat ion from Rehab[employer] options. If intended option is not shown, discontinue and re-order from Quick Search* Active Terconazole 0.4 % 1 appful intravaginally once every 2 weeks prn Active Estradiol 0.5 MG 1 tab(s) orally twice a week prn Active Vitamin C 500 MG 1 tab(s) orally once a day for 30 day(s) Active Melatonin 10 MG 2 cap(s) orally once a day (at bedtime) Active Ezetimibe 10 MG 1 tab(s) orally once a day for 90 days Active Potassium 99 DAILY Active Lisinopril 10 MG 1 tab(s) orally once a day for 90 Active Rybelsus 3 MG as directed Orally 11/03/2024 Active Glimepiride 1 MG 1 tab(s) orally once a day for 30 day(s) Active Ferrous Sulfate 325 (65 Fe) MG 1 tab(s) orally once a day with supper for 90 days Active Lidocaine 5 % 1 olga applied topically 3 times a day prn Active Magnesium Oxide 400 MG 1 tab(s) orally once a day (at bedtime) for 90 days Active EX-LAX STOOL SOFTENER 3 TABS ORALLY EVER Y OTHER DAY 2 tabs once a day *Please review for potential replacement for e-prescription and drug interaction check* Active Promethazine-DM 6.25-15 MG/5ML 5 mL orally every 6 hours for 14 days Active Excedrin Extra Strength 250-250-65 MG 2 tab(s) orally every 6 hours prn Active Clobetasol Propionate 0.05 % 1 olga applied topically 2 times a day prn for 30 days Active rOPINIRole HCl 1 MG 1 tab(s) orally 3 times a day Active Omeprazole 20 MG 1 cap(s) orally once a day for 90 days Active BORIC ACID TOPICAL - 1 SUPP(S) INTRAVAGINALLY ONCE A DAY PRN not using rt now *Please review for potential replacement for e-prescription and drug interaction check* Active Cyclobenzaprine HCl 10 MG 1 tab(s) orally 3 times a day prn for 30 days Active Social History Tobacco Use: Social History Observation Description Date Details (start date - stop date) Former Smoker NA - NA Smoking: Question Answer Notes Are you a: former smoker How long has it been since you last smoked? > 10 years Problems Problem Type SNOMED Code ICD Code Onset Dates Problem Status W/U Status Risk Notes Problem 72779429 Type 2 diabetes mellitus with other specified complication (E11.69) Active confirmed Problem 80539457 Type 2 diabetes mellitus without complications (E11.9) Active confirmed Problem 117324923 Mixed hyperlipidemia (E78.2) Active confirmed Problem 5252172 Primary insomnia (F51.01) Active confirmed Problem 519317147 Chronic pain syndrome (G89.4) Active confirmed Problem 5568473334620895 Primary osteoarthritis, right shoulder (M19.011) Active confirmed Problem 787653375702929 Primary osteoarthritis, left shoulder (M19.012) Active confirmed Problem 926284193010379 Spondylolisthesi s , lumbar region (M43.16) Active confirmed Problem 239628830 GERD without esophagitis (K21.9) Active confirmed Problem 70273489 Hypertension, essential (I10) Active confirmed Problem 78402516 Restless leg syndrome (G25.81) Active confirmed Problem 334223500 BMI 34.0-34.9,adult (Z68.34) Active confirmed Problem 91551992 Hyperlipidemia, unspecified (E78.5) Active confirmed Problem 443424080 Frequent falls (R29.6) Active confirmed Problem 049759479 Primary osteoarthritis of right knee (M17.11) Active confirmed Problem 210870925 Chronic insomnia (F51.04) Active confirmed Problem 69643455 Ataxia (R27.0) Active confirmed Problem 61464638 Spondylosis of lumbar region without myelopathy or radiculopathy (M47.816) Active confirmed Problem 231246758 Environmental allergies (Z91.09) Active confirmed Problem 511394340 Osteoarthritis, localized, knee (M17.10) Active confirmed Vital Signs Heart Rate 94 /min 11/03/2024 Temperature 98 degrees Fahrenheit 11/03/2024 Blood pressure diastolic 72 mm Hg 11/03/2024 Height 64 in 11/03/2024 Blood pressure systolic 118 mm Hg 11/03/2024 Weight 201.4 lbs 11/03/2024 BMI 34.57 kg/m2 11/03/2024 Encounters Encounter Location Date Provider Diagnosis [facility] [address] [place] [address] 10/18/2024 Provider Migration Chronic pain syndrom e G89.4 [facility] [address] [place] [address] 01/21/2024 Misael Edwards Type 2 diabetes mellitus with other specified complication E11.69 ; Hyperlipidemia, unspecified E78.5 ; Spondylolisthesis, lumbar region M43.16 and Sore throat J02.9 [facility] [address] [place] [address] 03/06/2024 Shaneka McNees Left foot pain M79.672 [facility] [address] [place] [facility] [address] [place] [address] 03/24/2024 Misael Edwards Arthritis of joint o f toe M19.079 [facility] [address] [place] [address] 04/21/2024 Misael Edwards Type 2 diabetes mellitus with other specified complication E11.69 ; Hyperlipidemia, unspecified E78.5 ; Spondylolisthesis, lumbar region M43.16 ; Hypertension, essential I10 and Encounter for Medicare annual wellness exam Z00.00 [facility] [address] [place] [address] 08/11/2024 Misaelmelinda Edwards Hypertension, essential I10 ; Type 2 diabetes mellitus with other specified complication E11.69 ; Hyperlipidemia, unspecified E78.5 and Chronic pain syndrome G89.4 [facility] [address] [place] [address] 11/03/2024 Misael Besandrea Type 2 diabetes mellitus with other specified complication E11.69 ; BMI 34.0-34.9,adult Z68.34 and Spondylosis of lumbar region without myelopathy or radiculopathy M47.816 [facility] [address] [place] [address] 01/24/2024 Misael Besson [facility] [address] [facility] [place] [address] 02/20/2024 Imsael Besson Spondylolisthesis, lumbar region M43.16 [facility] [address] [place] [address] 03/06/2024 Shaneka Mariee [facility] [address] [place] [address] 03/20/2024 Misael Besson Spondylolisthesis, lumbar region M43.16 [facility] [address] [place] [address] 03/25/2024 Misael Besson [facility] [address] [place] [address] 03/31/2024 Misael Besson [facility] [address] [place] [address] 04/21/2024 Misael Besson Spondylolisthesis, lumbar region M43.16 [facility] [address] [place] [address] 05/21/2024 Misael Besson Spondylolisthesis, lumbar region M43.16 [facility] [address] [facility] [address] [place] [address] 06/21/2024 Misael Besson Spondylolisthesis, lumbar region M43.16 [facility] [address] [place] [address] 07/22/2024 Misael Besson Spondylolisthesis, lumbar region M43.16 [facility] [address] [place] [address] 08/20/2024 Misael Besson Chronic pain syndrom e G89.4 [facility] [address] [place] [address] 09/17/2024 Misael Besson Chronic pain syndrom e G89.4 [facility] [address], [place] [address] 10/15/2024 Misael Edwards Chronic pain syndrom e G89.4 [facility] [address] [place] [address] 11/17/2024 Misael Edwards Chronic pain syndrom e G89.4 [facility] [address] [place] [address] 12/15/2024 Misael Edwards Chronic pain syndrom e G89.4 [facility] [address] [facility] [address] [place], [place] [address] 12/23/2024 Misael Edwards Assessments Encounter Date Diagnosis (ICD Code) Assessment Notes Treatment Notes Treatment Clinical Notes Section Notes 01/21/2024 Type 2 diabetes mellitus with other specified complication (ICD-10 - E11.69) - recent A1c/labs obtained last month elsewhere - will obtain records - 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 no concerns reported 01/21/2024 Hyperlipidemia, unspecified (ICD-10 - E78.5) - stable, continue with current therapy. pt previosuly declined Repatha 02/20/2024 Spondylolisthesis , lumbar region (ICD-10 - M43.16) 03/06/2024 Left foot pain (ICD-10 - M79.672) Reassurance, xray reviewed- no acute pathology. Rest, ice, elevate. Likely related to IP joint sprain. Can not completely r/o gout but less likely. prednisone as above. If no improvement in 2 weeks recommend FU for labs and possible podiatry referral 03/20/2024 Spondylolisthesis , lumbar region (ICD-10 - M43.16) 03/24/2024 Arthritis of joint of toe (ICD-10 - M19.079) Does not appear to be classic gout, but improved with prednisone, treat as above, antibiotics given the location around the nailbed. Recommended warm compresses 04/21/2024 Type 2 diabetes mellitus with other specified complication (ICD-10 - E11.69) Continue glimepiride. Due for A1c and BMP today, last 7.2% 10/2023. Diabetic foot exam performed today - normal skin integrity. 04/21/2024 Hyperlipidemia, unspecified (ICD-10 - E78.5) 04/21/2024 Spondylolisthesis , lumbar region (ICD-10 - M43.16) 05/21/2024 Spondylolisthesis , lumbar region (ICD-10 - M43.16) 06/21/2024 Spondylolisthesis , lumbar region (ICD-10 - M43.16) 07/22/2024 Spondylolisthesis , lumbar region (ICD-10 - M43.16) 08/11/2024 Type 2 diabetes mellitus with other specified complication (ICD-10 - E11.69) 08/20/2024 Chronic pain syndrome (ICD-10 - G89.4) 09/17/2024 Chronic pain syndrome (ICD-10 - G89.4) 10/15/2024 Chronic pain syndrome (ICD-10 - G89.4) 10/18/2024 Chronic pain syndrome (ICD-10 - G89.4) 11/03/2024 Type 2 diabetes mellitus with other specified complication (ICD-10 - E11.69) Reviewed mechanism of semaglutide. Does not wish to trial shots. Gave samples of Bernadette to see if she can tolerate this orally and then will reevaluate. Reviewed A1c from last visit. Otherwise doing well. No changes in plan. 11/03/2024 BMI 34.0-34.9,adult (ICD-10 - Z68.34) 08/11/2024 Hypertension, essential (ICD-10 - I10) Blood pressure under good control. No changes in plan. Check labs. 11/17/2024 Chronic pain syndrome (ICD-10 - G89.4) 12/15/2024 Chronic pain syndrome (ICD-10 - G89.4) 08/11/2024 Hyperlipidemia, unspecified (ICD-10 - E78.5) 11/03/2024 Spondylosis of lumbar region without myelopathy or radiculopathy (ICD-10 - M47.816) Patient has been compliant with our office and [place] regulations r.e. meds. No concerns on my part about diversion or misuse. Labs and Bruce reports reviewed and are appropriate. 04/21/2024 Spondylolisthesis , lumbar region (ICD-10 - M43.16) 01/21/2024 Spondylolisthesis , lumbar region (ICD-10 - M43.16) - stable on current pain meds, continue 01/21/2024 Sore throat (ICD-10 - J02.9) - 2-3 day duration of sore throat, improved w/ cold liquids. denies any other symptoms including fever, chills, congestion, rhinorrhea or any other symptoms. pt believes this is due to her allergies, which occurs every season. = Low concerns for bacterial pharyngitis, thus no abx needed at this time. this is likely viral versus allergic. continnue w/ supportive measures at this time. pt understands. informed pt to return to clinic if symptoms persist or worsen. pt will start taking her usual allergy medications such as Zyretc 04/21/2024 Hypertension, essential (ICD-10 - I10) BP well controlled on lisinopril 10mg daily. Check BMP today. 08/11/2024 Chronic pain syndrome (ICD-10 - G89.4) Continue current medication. Doing well. Still on low-dose, follows with pain management 04/21/2024 Encounter for Medicare annual wellness exam (ICD-10 - Z00.00) stable functional status. uses cane for long distance. Mild anxiety due to 's chronic medical conditions and cost of medications, no concern for SI/HI/AVH. Mammo scheduled for this week. Declines further colonoscopy. Declines flu vaccine.Reviewed HRA. 09/15 word recall. 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 Plan Of Treatment Pending Test Test Name Order Date X ray : Shoulder, Left 11/25/2018 Physical Therapy 10/08/2017 Physical Therapy 02/11/2021 C-CBC 10/15/2019 C-LIPID PANEL 10/15/2019 C-HGBA1C 10/15/2019 M-Comprehensive Metabolic Panel 09/06/19 21 M-Lipid Panel 09/06/2020 M-Vitamin D 25 Hydroxy 02/02/2021 Next Appt Details Provider Name:Misael Egan Grace, 01/12/2025 09:30:00 AM, [address], [place], [address], Insurance Providers Payer Name Payer Address Payer Phone Subscriber Number Group Number Insured Name Patient Relationship to Insured Coverage Start Date Coverage End Date MEDICARE PART B [address] [place] [phone] [id number] Lila Lockhart Self - patient is the insured [facility] [address] [address] [place] [address] [id number] Lila Lockhart Self - patient is the insured [employer] [address] [place] [address] [address] [place] [address] ACL Lila Lockhart Self - patient is the insured Medical (General) History Medical History History ICD Code diabetes HLD HTN Arthritis Normal DEXA scan in 2011 Normal Colonoscopy in 2004 Normal mammogram 10/30 Fibromyalgia carpal tunnel Appropriate UDS 04/2020 Surgical History Surgery Date(Month/Year) Back surgery D and C Left ankle Hysterectomy Cholecystectomy [place] teeth extracted Back inj-Dr. Peguero 02/21/2017 rt knee injs x 5-Dr. Ornelas 05/29-06/26 Left foot fx- repaired 05/22/2019 Steroid inj-bilateral shoulder 12/2019 bilateral carpal tunnel surgery 09/2021 Right Eye Cataract 10/24/22 Left Eye Cataract 11/07/22 Right Total Knee Replacement 11/27/22 Colonscopy 07/2024 Hospitalization History Reason Date(Month/Year) Surgery as above
--- OUTSIDE RECORDS SUMMARY | 2024-12-29 09:18 | XMS_ITS | Encounter Summary ---
Author Organization [facility] Address [address] [id number] Care Team Providers Care Temple Marker Name Role Phone Misael Edwards MD Primary Care Provider + [phone] Reason for Visit * Reason Onset Date Comments Prior-authorization/insurance Verification 12/09 Encounter Details Date Type Department Care Team (Late st Contact Info) Description 12/09/2024 Telephone [facility] Endocrinology [address] [place] [address] Krystian Reveles, DO [address] [place] [address] Prior-authorization/ins urance Verification Social History Tobacco Use Types Packs/Day Years [...] on file documented as of this encounter Miscellaneous Notes * Telephone Encounter - Miri Austinfarida Delatorre - 12/11/2024 1:51 PM EDT Called pt back and informed her will call in a rx from [employer]. Instructed pt if her copay is still unaffordable to call back for assistance or other options, Pt verbalized understanding * Telephone Encounter - Amber Cuevas PharmD - 12/11/2024 7:55 AM EDT PA request has been denied. Sending to clinical team for review via Director Records Management upload. Medication: Rybelsus 7mg PA Case ID: [id number] Additional Info: plan requires trial of Mounjaro, Ozempic. Letter uploaded in media * Telephone Encounter - Amber Cuevas PharmD - 12/10/2024 8:41 AM EDT [facility]. Update will be provided when a determination has been received. Medication: Rybelsus PA Submission Method: CMM Case Number/CMM Bee: [id number] * Telephone Encounter - Amber Cuevas PharmD - 12/09/2024 11:58 AM EDT The patients plans required treatment failure, intolerance or contraindication to Ozempic, Mounjaro. Is there clinical justification as to why the patient can not take the plan preferred alternative (Ozempic or Mounjaro) for PA submission? * Telephone Encounter - Ct Jose - 12/09/2024 6:46 AM EDT Images from the original note were not included. Prior authorization requested for Rybelsus 7MG Tablets. Ordered by Krystian Reveles. documented in this encounter Plan of Treatment Upcoming Encounters Date Type Department Care Team (Late st Contact Info) Description 01/29/2025 8:00 AM EDT Office Visit [facility] [address] [place] [address] Epi Burgos MD [address] [place] [address] 06/09/2025 8:40 AM EST Office Visit [facility] Endocrinology [address] [place] [address] (3), Jared Marin Fellow documented as of this encounter Visit Diagnoses Not on filedocumented in this encounter Additional Health Concerns Assessment Noted Time A fall risk assessment has been complete d for the patient 12/02/2024 8:35 AM EDT A Body Mass Index follow-up plan has been documented for the patient 12/12/2024 4:25 PM EDT documented as of this encounter Care Teams Temple Marker Relationship Specialty Start Date End Date Misael Edwards MD [address] [place] [address] PCP - General 11/26/20 documented as of this encounter
--- OUTSIDE RECORDS SUMMARY | 2024-12-29 09:18 | XMS_ITS | Encounter Summary ---
Author Organization [facility] Address [address] [place] [address] Care Team Providers Care Metals Sales Representative Name Role Phone Misael Edwards MD Primary Care Provider [phone] Encounter Details Date Type Department Care Team (Late Contact Info) Description 12/03/2024 Results Follow-Up [facility] Endocrinology [address] [place] [address] Krystian Reveles, DO [address] [place], [place] [id number] Social History Tobacco Use Types Packs/Day Years [...] on file documented as of this encounter Plan of Treatment Upcoming Encounters Date Type Department Care Team (Late st Contact Info) Description 01/29/2025 8:00 AM EDT Office Visit [facility] [address] [place] [address] Epi Burgos MD [address] [address] 06/09/2025 8:40 AM EST [facility] [place] [address] (3), Jared Marin Fellow documented as of this encounter Visit Diagnoses Not on filedocumented in this encounter Additional Health Concerns Assessment Noted Time A fall risk assessment has been complete d for the patient 12/02/2024 8:35 AM EDT A Body Mass Index follow-up plan has been documented for the patient 12/12/2024 4:25 PM EDT documented as of this encounter Care Teams Metals Sales Representative Relationship Specialty Start Date End Date Misael Edwards MD [address] [place] [address] PCP - General 11/26/20 documented as of this encounter
--- OUTSIDE RECORDS SUMMARY | 2024-12-29 09:18 | XMS_ITS | Encounter Summary ---
Author Organization [facility] Address [address] [place] [address] Care Team Providers Care Nailing Machine Operator Name Role Phone Misael Edwards MD Primary Care Provider [phone] Reason for Visit * Reason Onset Date Comments Med Refill 12/11/2024 Encounter Details Date Type Department Care Team (Late st Contact Info) Description 12/11/2024 Refill [facility] Endocrinology [address] [place] [address] Raina Austin J [address] [facility] [address] [place] [address] Social History Tobacco Use Types Packs/Day Years [...] Description 01/29/2025 8:00 AM EDT Office Visit [facility] [address] [place] [address] Epi Burgos MD [address] [place] [address] 06/09/2025 8:40 AM EST Office Visit [facility] Endocrinology [address] [place] [address] (3), Jared Marin Fellow documented as of this encounter Visit Diagnoses Not on filedocumented in this encounter Additional Health Concerns Assessment Noted Time A fall risk assessment has been complete d for the patient 12/02/2024 8:35 AM EDT A Body Mass Index follow-up plan has been documented for the patient 12/12/2024 4:25 PM EDT documented as of this encounter Care Teams Nailing Machine Operator Relationship Specialty Start Date End Date Misael Edwards MD [address] [place] [address] PCP - General 11/26/20 documented as of this encounter
--- OUTSIDE RECORDS SUMMARY | 2024-12-29 09:19 | XMS_ITS | Patient Health Record ---
Author Organization [facility] Address [address] [place] [address] Care Team Providers Care Site Acquisition Specialist Name Role Phone Ct Peoples Unavailable [phone] Kanchan Laguna Unavailable [phone] Allergies Allergen (clinical drug ingredient) Drug/Non Drug Allergy documented on EMR Reaction Allergy Type Onset Date Status Substance with 0-yzxhwjd-9-methylglut aryl-coenzyme A reductase inhibitor mechanism of action (substance) STATIN (uncoded) Unspecified Allergy 12/23/2019 Active MORPHINE SULFATE (MORPHINE SULFATE TABS) Unspecified Drug Allergy 12/23/2019 Active Results Component Value Reference Range Notes MAMMO SCREENING DIGITAL KAMILA SYNTHESIS BILATERAL W CAD Reviewed date:04/29/2024 09:34:29 PM Interpretation:BIRAD 1 Negative, follow up in one year Performing Lab: Notes/Report: DIGITAL SCREENING MAMMOGRAM WITH TOMOSYNTHESIS HISTORY: Screening Mammography. Low dose full field digital breast tomosynthesis imaging was performed with 2D and 3D acquisitions consisting of bilateral CC and MLO views. Examination is compared to prior examination dating back to 10/25/2015. Examination is read in conjunction with computer aided detection. FINDINGS: There are scattered areas of fibroglandular density. No suspicious masses, microcalcifications or areas of architectural distortion are present. Negative bilateral mammogram. RECOMMENDATION: Continue annual screening mammography. BI-RADS CATEGORY 1, NEGATIVE. CAD was utilized. The standard false-negative rate of mammography is between 10% and 25%. Complex patterns or increased breast density will markedly elevate the false-negative rate of mammography. A letter, in lay terminology, with the results of this exam will be mailed to the patient. This report was finalized on 04/29/2024 3:[address] Marry Shah MD. Signed by: Marry Shah on 04/29/2024 3:51 PM No problems + 12 lbs Covid right arm April 2024 Reason for Exam:->SCR MAMMO Shreya/Bacterial Vaginosis, ROBI (Aptima) Reviewed date:01/16/2024 08:12:35 AM Interpretation:Negative Performing Lab:[facility], [facility] - [place] CLIA ID [id number], [address], [address], [place] [address], Director - Anisa Gutierrez MD Notes/Report: Bacterial Vaginosis Negative Negative system that detects and discriminates RNA markers from the Lactobacillus species group (L. gasseri, L. crispatus and L. jensenii), Gardnerella vaginalis, and Atopobium vaginae. The Aptima BV assay uses an algorithm for bacterial vaginosis based on detection of target organisms. The Aptima BV assay is a real time NAAT TMA assay developed for use on the automated [place] Shreya species Negative Negative system that detects following Shreya species organisms (C. albicans, C. tropicalis, C. parapsilosis, C. dubliniensis), but the assay does not differentiate among C spp. The CV Assay is a real time TMA assay developed for use on the automated [place] Shreya glabrata Negative Negative Reason For Referral Reason Screening Colonoscop y- Pos cologaurd Diagnosis 1 Colon cancer screeni (Z12.11) Referral Organization [facility] Referring Provider First Name Ct Referring Provider Last Name Shelton Referring Provider Speciality OB - Gynec ology Referral Priority Routine Referral Appointment Date 08/06/2024 Medications Medication SIG (Take, Route, Frequency, Duration) Notes Start Date End Date Status Cyclobenzaprine HCl 10 MG Tablet 1 tablet po 1 daily Active Meloxicam 10 MG Capsule 2 tablets Orally 1 daily Active DULoxetine HCl 30 MG Capsule Delayed Release Particles 1 tablet po 1 daily Active CeleBREX 200 MG Capsule 1 tablet po 1 daily Active Lisinopril 10 MG Tablet 1 tablet po 1 daily Active Clobetasol Propionate 0.05 % Cream 1 application Externally Twice a day; Duration: 10 days 05/31/2022 Active Magnesium Oxide 400 MG Tablet 1 tablet po 1 daily Active Boric Acid Active HYDROcodone-Acetaminoph en 7.5-325 MG Tablet 1 tablet po 1 daily Active Calcium Active Ferrous Sulfate 325 (65 Fe) MG Tablet 1 tablet po 1 daily Active Terconazole 0.4 % Cream 1 applicatorful at bedtime Vaginal Once a day; Duration: 7 days Active Glimepiride 1 MG Tablet 1 tablet po 1 daily Active Vitamin C Active Estradiol 0.1 MG/GM Cream 1 gram Vaginal Daily x1 week, then every other day x1 week, then twice weekly for maintenance; Duration: 90 days 01/14/2024 Active Potassium Active Ezetimibe 10 MG Tablet 1 tablet Orally 1 daily Active Promethazine-DM 6.25-15 MG/5ML Syrup 1 tablet po 1 daily Active metFORMIN HCl Active Estradiol 0.1 MG/GM Cream pea size amount Vaginal twice weekly; Duration: 30 days DISPENSE 1 TUBE 02/16/2022 Active Omeprazole 20 MG Tablet Delayed Release 1 tablet po 1 daily Activ e Social History Social History Sexual History: Social Info Question Answer Notes Sexual History Had sex in the past 12 months (vaginal, oral, or anal)? Yes Drugs/Alcohol: Social Info Question Answer Notes Drugs Have you used drugs other than those for medical reasons in the past 12 months? No Alcohol Screen Did you have a drink containing alcohol in the past year? Yes Points 0 Interpretation Negative Tobacco Use: Social Info Question Answer Notes Tobacco Use/Smoking Are you a former smoker Tobacco use other than smoking: Are you an other tobac co user? No Problems Problem Type SNOMED Code ICD Code Onset Dates Problem Status W/U Status Risk Notes Problem Atrophy of vagina (509702643) Vaginal atrophy (N95.2) Active confirmed Problem Postmenopausal bleeding (56491039) PMB (postmenopausal bleeding) (N95.0) Active confirmed Problem Cervical smear, as part of routine gynecological examination (Z01.419) 021 Active confirmed Annual without abnormal findings Vital Signs Blood pressure diastolic 62 mm Hg 06/04/2024 Height 64 in 06/04/2024 Blood pressure systolic 116 mm Hg 06/04/2024 Weight 203.2 lbs 06/04/2024 BMI 34.88 kg/m2 06/04/2024 Encounters Encounter Location Date Provider Diagnosis [facility] [address] [place] [address] 01/14/2024 Kanchan Laguna PMB (postmenopausal bleeding) N95.0 [facility] [address] [place] [address] 06/25/2024 Ct Peoples [facility] [address] [place] [address] 01/14/2024 Kanchan Laguna Vaginal irritation N89.8 [facility] [address] [place] [address] 06/04/2024 Ct Peoples Research Chef exam without abnormal findings Z01.419 and Encounter for screening mammogram for malignant neoplasm of breast Z12.31 Assessments Encounter Date Diagnosis (ICD Code) Assessment Notes Treatment Notes Treatment Clinical Notes Section Notes 01/14/2024 Vaginal irritation (ICD-10 - N89.8) Vaginal swab sent for culture. Will notify pt of results when available and tx as indicated. Advised pt to restart Estradiol cream. Rx sent. Educated pt on medication, usage, and possible side effects. 01/14/2024 PMB (postmenopausal bleeding) (ICD-10 - N95.0) 06/04/2024 Research Chef exam without abnormal findings (ICD-10 - Z01.419) Normal annual exam BSE encouraged Annual mammogram BSE encouraged Follow up annual exam or PRN Cologuard order 06/04/2024 Encounter for screening mammogram for malignant neoplasm of breast (ICD-10 - Z12.31) Plan Of Treatment No Information Insurance Providers Payer Name Payer Address Payer Phone Subscriber Number Group Number Insured Name Patient Relationship to Insured Coverage Start Date Coverage End Date [place] [address] [place] [address] [id number] Lila Lockhart Self - patient is the insured 2 [employer] Senior Supplemental Claims [address] [address] [place], [place] [id number] Lila Lockhart Self - patient is the insured Medical (General) History Medical History History ICD Code Acid Reflux Diabetes Hypertension Obesity Surgical History Surgery Date(Month/Year) Back surgery 1995 D&C x2 Hysterectomy Left ankle surgery Left foot surgery Hospitalization History Reason Date(Month/Year) surgery
--- OUTSIDE RECORDS SUMMARY | 2024-12-29 09:19 | XMS_ITS | Encounter Summary ---
Author Organization [facility] Address [address] [place] [address] Care Team Providers Care Director Business Development Name Role Phone Misael Edwards MD Primary Care Provider + [phone] Encounter Details Date Type Department Care Team (Latest Contact Info) Description 12/02/2024 Travel Social History Tobacco Use Types Packs/Day Years Used Date Smoking Tobacco: Former Cigarettes 1 40 1 967 - 2006 Passive Smoke Exposure: Past Smokeless Tobacco: Never [...] on file documented as of this encounter Functional Status * Over the [...] Lucinda Khan documented as of this encounter Plan of Treatment Upcoming Encounters Date Type Department Care Team (Late Contact Info) Description 01/29/2025 8:00 AM EDT Office Visit [facility] [address] [place] [address] Epi Burgos MD [address] [place] [address] 06/09/2025 8:40 AM EST Office Visit [facility] Endocrinology [address] [place] [address] (3), Jared Marin Fellow documented as of this encounter Visit Diagnoses Not on filedocumented in this encounter Additional Health Concerns Assessment Noted Time A fall risk assessment has been complete d for the patient 12/02/2024 8:35 AM EDT A Body Mass Index follow-up plan has been documented for the patient 12/12/2024 4:25 PM EDT documented as of this encounter Care Teams Director Business Development Relationship Specialty Start Date End Date Misael Edwards MD [address] [place] [address] PCP - General 11/26/20 documented as of this encounter
[2024-12-29 09:47] VITALS: BP 112/67; PULSE 79; RESP 14; O2SAT 94; BMI 34.3
== END 2024-12-29 23:59 | disposition home or self-care (01) ==
PROVIDERS: PCP Internal Medicine Adolescent Medicine; Visit Provider Nurse Practitioner Family
DX: M51.16 Intervertebral disc disorders with radiculopathy, lumbar region (principal); M54.2 Cervicalgia; Z79.899 Other long term (current) drug therapy
CPT/HCPCS: 99212; G0463